=== PATIENT | male | born 1945 | race Caucasian/White ===

== ENCOUNTER 2017-09-06 11:04 | Inpatient (IN) | payer MEDICARE ==
[~2017-09-06 11:04] MED LIST: ARAVA10 MG PO; ARTHROTEC EC 71 EACH PO; AZULFIDINE500 MG PO; BAYER CHEWABLE81 MG PO; CARDIZEM CD120 MG PO; CORDARONE200 MG PO; CYCLOBENZAPRINE10 MG PO; EFFIENT10 MG PO; FISH OIL 1,2001 CA1 PO; FLEXERIL10 MG PO; FOLIC ACID1 MG PO; FUROSEMIDE20 MG PO; GLIPIZIDE10 MG PO; GLUCOPHAGE1000 MG PO; GLUCOPHAGE500 MG PO; HUMALOG 30100 UNITS/ SC; IMDUR60 MG PO; ISOSORBIDE MONO60 M1 PO; LANTUS SOL100 UNIT/1 SQ; LASIX40 MG PO; LEVOTHROID125 MCG PO; LEVOTHYROXINE125 MCG PO; MAG-OX 400 MG400 MG PO; METHOTREXATE2.5 MG PO; NEURONTIN600 MG PO; NITROSTAT0.4 MG SL; NORCO 10/325 TA1 TA1 PO; NORCO 7.5/325 T1 TA1 PO; PREDNISONE5 MG PO; PRINIVIL10 MG PO; PYRIDOXINE HCL100 MG PO; RANEXA500 MG PO; SYNTHROID125 MCG PO; TREXALL15 MG PO; TRICOR145 MG PO; VOLTAREN75 MG PO; [UNRECOGNIZED DRUG - OTHER]
[2017-09-06 11:40] LABS: BASOPHILS 0.2 % (0-2); EOSINOPHILS 1.3 % (0-7); HEMOGLOBIN 12.2 g/dL (13.5-17.5); IMMATURE GRANULOCYTES 0.2 % (0-5); LYMPHOCYTES 18.2 % (15-50); MCH 31.6 pg (26.0-34.0); MCHC 33.9 g/dL (31.0-37.0); MCV 93.3 fL (80.0-100.0); MEAN PLATELET VOLUME 9.1 fL (7.4-10.4); MONOCYTES 6.3 % (2-11); NEUTROPHILS 73.8 % (40-80); PLATELET COUNT 240 10x3/uL (130-400); RBC 3.86 10x6/uL (4.20-6.10); RDW 14.2 % (11.5-14.5); WBC 5.3 10x3/uL (4.8-10.8)
[2017-09-06 11:52] LABS: ALBUMIN 3.5 g/dL (3.4-5.0); ALKALINE PHOSPHATASE 37 U/L (46-116); ALT (SGPT) 28 U/L (10-68); BILIRUBIN - TOTAL 0.17 mg/dL (0.2-1.3); CALC OSMOLALITY 293 mosm/kg (275-300); CALCIUM 9.9 mg/dL (8.5-10.1); CARBON DIOXIDE 26.3 mmol/L (21.0-32.0); CHLORIDE - SERUM 102 mmol/L (98-107); CREATININE - SERUM 1.5 mg/dL (0.6-1.3); GLUCOSE 242 mg/dL (74-106); POTASSIUM - SERUM 4.2 mmol/L (3.5-5.1); PROTEIN - SERUM 7.5 g/dL (6.4-8.2); SODIUM 139 mmol/L (136-145); UREA NITROGEN 36 mg/dL (7-18); eGFR NON AFRICAN AMERICAN 49 mL/min (90-120)
[2017-09-06 12:08] LABS: CKMB 2.6 U/L (0.0-3.6); CREATINE KINASE 150 UL (21-232); PRO BNP 400 pg/mL (0-125)
[2017-09-06 12:12] LABS: TROPONIN-I 0.191 ng/mL (0.000-0.060)
[2017-09-06 13:53] LABS: TROPONIN-I 0.195 ng/mL (0.000-0.060)
[2017-09-06 15:15] VITALS: BP 141/71; BMI 24.6
--- NOTE | 2017-09-06 15:33 | NUR ---
PT AOX4 RESP EVEN AND NONLABORED PT DENIES NEEDS AT THIS TIME IV TO LEFT FOREARM PATENT AND INTACT AT THIS TIME SRX2 BED AT LOWEST SETTING CALL LIGHT WITHIN REACH WILL CONTINUE TO MONITOR
[2017-09-06 19:24] LABS: CKMB 2.1 U/L (0.0-3.6); CREATINE KINASE 113 UL (21-232); TROPONIN-I 0.216 ng/mL (0.000-0.060)
[2017-09-06 20:00] VITALS: BP 132/71
[2017-09-07 01:33] LABS: CKMB 1.6 U/L (0.0-3.6); CREATINE KINASE 93 UL (21-232)
[2017-09-07 01:34] LABS: TROPONIN-I 0.182 ng/mL (0.000-0.060)
[2017-09-07 04:00] VITALS: BP 126/71
--- NOTE | 2017-09-07 07:00 | NUR ---
REPORT RECIEVED ASSUMED CARE. PATIENT IN BED WITH NO COMPLAINTS AT THIS TIME. IV INTACT. CALL LIGHT WITHIN REACH.
[2017-09-07 08:43] VITALS: BP 128/71
--- NOTE | 2017-09-07 11:24 | NUR ---
PATIENT IN BED WITH NO COMPLAINTS. CT X 2 CDI. IV INTACT. O2 ON. FAMILY AT BEDSIDE. CALL LIGHT WITHIN REACH.
--- NOTE | 2017-09-07 11:53 | NUR ---
RIGHT CHEST TUBE PLACED BY DR ROWLAND WITH NO DIFFICULTY. PATIENT TOLERATED PROCEDURE WELL. R CHEST TUBE TO 20 CM OF SUCTION.
[2017-09-07 12:10] VITALS: BP 124/75
[2017-09-07 16:20] VITALS: BP 147/71
--- NOTE | 2017-09-07 16:50 | NUR ---
PATIENT SITTING UP ON THE SIDE OF BED. SAID STILL IN PAIN. OFFERED TO CALL FOR MORE PAIN MEDS. PATIENT STATED HE WOULD BE OK FOR NOW. IV INTACT. NO OCMPLAINTS. CT X 2 INTACT. FAMILY AT BEDSIDE. CALL LIGHT WITHIN REACH.
--- NOTE | 2017-09-07 18:55 | NUR ---
PATIENT IN BED WITH IV INTACT. NO COMPLAINTS AT THIS TIME. CT X 2 CDI. CALL LIGHT WITHIN REACH.
[2017-09-07 19:30] VITALS: BP 145/89
[2017-09-08 04:00] VITALS: BP 143/79
--- NOTE | 2017-09-08 08:10 | NUR ---
AM ROUNDING- RECEIVED REPORT FROM STUDIO OWNER NURSE PARISA. PT IS CURRENLTY SITTING UP IN BED WITH EYES OPEN RESTING. PT IS NPO CURRENTLY FOR CHEST TUBE PLACEMENT TODAY PER DR. ROWLAND. PER PARISA, STUDIO OWNER NURSE, CONSENTS ARE SIGNED AND IN CHART. PT IS ON MONITOR SHOWING SR, HR 81. ON 02 AT 6L VIA OXIMIZER. IV SEEN TO LEFT FOREARM THAT IS CURRENTLY SALINE LOCKED. CHEST TUBE SEEN TO RIGHT UPPER CHEST AREA. SECOND CHEST TUBE SEEN TO MID RIGHT ABDOMINAL AREA HOOKED UP TO WATER SEAL LOW INTERMITTENT SUCTION, NO DRAINAGE SEEN IN CHAMBER AT THIS TIME. WILL CONTINUE TO MONITOR AND CONTINUE WITH PLAN OF CARE.
[2017-09-08 08:48] VITALS: BP 131/71
--- NOTE | 2017-09-08 10:15 | NUR ---
CALLED FOR PT TO BE PRE-OPED. PT GIVEN PRE-OP MEDICATIONS WITH NO SIP OF WATER. NS HUNG AND TUBING PRIMED. EKG IS IN CHART. CONSENTS ARE SIGNED PER FOOD TESTER NURSE.
--- NOTE | 2017-09-08 10:31 | NUR ---
PT TO PROCEDURE VIA BED.
--- NOTE | 2017-09-08 12:14 | NUR ---
CARDIOLOGY CONSULTED. CALL RECIEVED BACK FROM DR [facility] TO VERIFY CONSULT.
--- NOTE | 2017-09-08 12:16 | NUR ---
PT STATES THAT CP IS GONE NOW.
--- NOTE | 2017-09-08 12:28 | NUR ---
RECEIVED REPORT FROM DAVID GUTIERREZ IN OR RECOVERY. MATT STATES SHE WILL BRING PT BACK SOON.
--- NOTE | 2017-09-08 12:52 | NUR ---
PT BACK FROM PROCEDURE. PT IS ALERT AND ORIENTED. RIGHT ANTERIOR CHEST TUBE SEEN WITH CDI HOOKED UP TO [place] CHEST TUBE VALVE WITH NO DRAINAGE SEEN. SECOND CHEST TUBE WITH CDI DRESSING SEEN TO LOWER RIGHT CHEST AREA HOOKED UP TO WATER SEAL CHAMBER AT LOW INTERMITTENT SUCTION WITH 10CC OF BLOODY DRAINAGE SEEN IN CHAMBER. PT STATES HE IS FINE AT THIS TIME. VITAL SIGNS BEING TAKEN. GUEST IS AT BEDSIDE. WILL CONTINUE TO MONITOR.
--- NOTE | 2017-09-08 13:26 | NUR ---
1031 PATIENT LEFT MED/ SURG TO GO TO SURGERY FOR CHEST TUBE INSERTION. 1200 NOON- CM CHECKED PATIENT'S ROOM HE HAD NOT RETURNED AD NO FAMILY AT BEDSIDE TO START ASSESSMENT. CM TO FOLLOW.
[2017-09-08 15:36] VITALS: BMI 24.5
--- NOTE | 2017-09-08 16:54 | NUR ---
PTS BS IS 484. ANDRY, COMMERCIAL PHOTOGRAPHER PAGED DR. ROWLAND TO LET HIM BE AWARE OF THIS. WILL AWAIT CALLBACK.
--- NOTE | 2017-09-08 18:16 | NUR ---
PT IS CURRENTLY SITTING UP ON SIDE OF BED WITH EYES OPEN RESTING. IS AT BEDSIDE. PT IS REQUESTING SPRITE. WILL GIVE PT DIET SPRITE AND CONTINUE TO MONITOR.
--- NOTE | 2017-09-08 20:45 | NUR ---
PATIENT RESTING IN BED AND DENIES NEEDS AT THIS TIME. BED IN LOWEST POSITION AND CALL LIGHT WITHIN REACH. ENCOURAGED THE PATIENT TO CALL IF HE HAS NEEDS.
[2017-09-08 22:08] VITALS: BP 134/67
--- NOTE | 2017-09-08 22:45 | NUR ---
PATIENT REQUESTED TO BE GIVEN 10 UNITS OF INSULIN AND REFUSED 24 UNITS ON THE SLIDING SCALE
[2017-09-09] VITALS (7 sets, daily range): BP systolic 121–157; BP diastolic 70–92
--- NOTE | 2017-09-09 09:03 | NUR ---
PT CALLED STATING HE IS SOB AFTER USING BR. PTS CHEST TUBE IN CONNECTED TO LIS WATER SEAL AT 20CM AND BUBBLING. SLIGHT AIR LEAK NOTED UPON COUGHING. EMPHYSEMA NOTED TO R.ARM SHOULDER CHEST AREA. CRACKLES NOTED TO ALL R.SIDE LOBES, L.SIDE ARE DIMINISHED. VITALS STABLE: 153/78 RR 13 PULSE OX 99% WITH NC@4L IN PLACE. STAT CHEST XRAY ORDERED AND PENDING. NOTIFIED . WILL CTM.
--- NOTE | 2017-09-09 09:14 | NUR ---
PT NOW SWELLING MORE AND ITS NOTED TO THE R.SIDE OF HIS FACE AND HIS THROAT PT HAVING EXTREME SOB. VITALS STILL STABLE. RAPID RESPONSE CALLED. WILL CPOC.
--- NOTE | 2017-09-09 09:48 | NUR ---
AT BEDSIDE ASSESSING PT. NO CURRENT NEEDS. WILL CTM CLOSELY.
--- NOTE | 2017-09-09 10:13 | NUR ---
Patient Name: ANU RAM Admission Status: ER Accout number: [id number] Admission Date: 09-06-2017 : 1943 Admission Diagnosis: Attending: EBONI ROWLAND Current LOS: 3 Anticipated DC Date: Planned Disposition: Primary Insurance: [facility] Discharge Planning Comments: CM MET WITH PATIENT REGARDING D/C NEEDS AND PLANS. PATIENT STATED HE LIVES WITH HIS AND SHE OR FAMILY WILL DRIVE HIM HOME AT DISCHARGE. PATIENT HAS NO STEPS OR STAIRS AT HIS HOME. PATIENT STATED HE IS INDEPENDENT WITH HIS CARE AND HAS A GLUCOMETER AT HOME (CHECKS DAILY). PATIENTS PCP IS DR. BLACKWOOD AND PHARMACY IS [facility]. PATIENT DOES NOT WANT HOME HEALTH AT THIS TIME. CM WILL CONTINUE TO FOLLOW PATIENT WITH D/C NEEDS AND PLANS. PCP DR[facility]- [phone] ETTA- () [phone] Software Security Architect: Suyapa Mckay Is the patient Alert and Oriented? Yes 0 * How many steps to enter\exit or inside your home? 0 0 * PCP DR. BLACKWOOD 0 * Pharmacy [facility] 0 * Preadmission Environment Home with Family 0 * ADLs Independent 0 * Equipment Glucometer 0 * List name and contact numbers for known caregivers / representatives who currently or will assist patient after discharge: ETTA () [phone] * Community resources currently utilized None 0 * Additional services required to return to the preadmission environment? Yes 0 * Can the patient safely return to the preadmission environment? Yes 0 * Has this patient been hospitalized within the prior 30 days at any hospital? No 0 Grand Total: 0
--- NOTE | 2017-09-09 10:40 | NUR ---
PROVIDED PT WITH ALL HIS MORNING MEDICATIONS HE IS STABLE AND FEELING A LITTLE BETTER NOW. RR SLIGHTLY LABORED WITH NC @3L PULSE OX 97% PT STILL SWOLLEN TO R.SIDE OF CHEST AND CRACKLES THROUGHOUT ALL LOBES. NECK IS SLIGHTLY SWOLLEN AND SUBCUT. EMPHYSEMA NOTED AROUND TRACHEA. DOCTOR AWARE AND CONTINUING CURRENT PLAN OF CARE. EKG BEING DONE ORDERED. NO CURRENT NEEDS AT THIS TIME. WILL CPOC.
[2017-09-09 10:55] LABS: BASOPHILS 0.2 % (0-2); EOSINOPHILS 2.1 % (0-7); HEMATOCRIT 36.5 % (42.0-54.0); IMMATURE GRANULOCYTES 0.4 % (0-5); LYMPHOCYTES 20.9 % (15-50); MCHC 32.9 g/dL (31.0-37.0); MCV 94.3 fL (80.0-100.0); MEAN PLATELET VOLUME 9.2 fL (7.4-10.4); MONOCYTES 6.5 % (2-11); NEUTROPHILS 69.9 % (40-80); PLATELET COUNT 276 10x3/uL (130-400); RBC 3.87 10x6/uL (4.20-6.10); WBC 5.3 10x3/uL (4.8-10.8)
[2017-09-09 11:47] LABS: CALC OSMOLALITY 296 mosm/kg (275-300); CALCIUM 8.9 mg/dL (8.5-10.1); CARBON DIOXIDE 28.1 mmol/L (21.0-32.0); CHLORIDE - SERUM 103 mmol/L (98-107); CKMB 0.7 U/L (0.0-3.6); CREATINE KINASE 86 UL (21-232); CREATININE - SERUM 1.3 mg/dL (0.6-1.3); GLUCOSE 264 mg/dL (74-106); POTASSIUM - SERUM 4.5 mmol/L (3.5-5.1); SODIUM 140 mmol/L (136-145); TROPONIN-I < 0.017 ng/mL (0.000-0.060); UREA NITROGEN 39 mg/dL (7-18); eGFR NON AFRICAN AMERICAN 57 mL/min (90-120)
--- NOTE | 2017-09-09 11:55 | NUR ---
FSBS 289. PT REC'D 16 UNITS PER SS INSULIN. PT SITTING UP IN BED RESTING QUIETLY WITH FAMILY FRIEND AT BEDSIDE. PTS SWELLING IS PROGRESSING AND HASNT SEEMED TO GO DOWN AT ALL. CRACKLES NOW HEARD TO L.SIDE OF CHEST AND RICE CRISPIE FELT UPON PALPATION ON BILAT SIDES OF CHEST ANTERIOR, POSTERIOR ONLY TO R.SIDE, FACE/NECK SWOLLEN STILL AND NOT IMPROVING. PT STILL FEELS SOB AND IS IN PAIN UPON DEEP BREATHES BUT REFUSES ANY PAIN MEDICATION. WILL CONTINUE TO MONITER CLOSELY.
--- NOTE | 2017-09-09 16:32 | NUR ---
FSBS 261 PT REC'D 16UNITS PER SS INSULIN. PT IS STILL UNCOMFORTABLE AND SWOLLEN WITH CREPITIS NOTED THROUGHOUT CHEST AND BILAT SHOULDERS AND EVEN FACE. PT C/O NOW HIS EYES SWOLLEN AND THEY ARE AND SWELLING IS INCREASING NOT GOING DOWN AT ALL. PAGED AGAIN. WILL CPOC.
--- NOTE | 2017-09-09 16:53 | NUR ---
AWARE AND DENIES ANY NEEDED FURTHER ACTION, PT HAS HIS CHEST TUBE IN PLACE AND WILL CONTINUE CURRENT THERAPY.
[2017-09-09 17:05] LABS: CKMB 0.8 U/L (0.0-3.6); CREATINE KINASE 87 UL (21-232); TROPONIN-I 0.019 ng/mL (0.000-0.060)
--- NOTE | 2017-09-09 19:39 | NUR ---
PATIENT RESTING IN BED AND DENIES NEEDS AT THIS TIME. PATIENT C/O 4/10 PAIN, HOWEVER, REFUSED PAIN MEDICATION. PATIENT DENIES OTHER NEEDS AT THIS TIME. ASSESSMENT COMPLETE. BED IN LOWEST POSITION AND CALL LIGHT WITHIN REACH. ENCOURAGED THE PT TO CALL IF HE HAS NEEDS.
--- NOTE | 2017-09-09 20:56 | NUR ---
PATIENT REQUESTED MEDS FOR CONSTIPATION
[2017-09-09 22:56] LABS: CKMB 0.6 U/L (0.0-3.6); CREATINE KINASE 71 UL (21-232); TROPONIN-I 0.018 ng/mL (0.000-0.060)
[2017-09-10 04:00] VITALS: BP 150/80
[2017-09-10 07:50] VITALS: BP 130/70
--- NOTE | 2017-09-10 07:50 | NUR ---
PT AOX4 RESP EVEN AND NONLABORED PT DENIES NEEDS AT THIS TIME SRX2 BED AT LOWEST SETTING CALL LIGHT WITHIN REACH WILL CONTINUE TO MONITOR
[2017-09-10 12:23] VITALS: BP 155/82
--- NOTE | 2017-09-10 15:20 | NUR ---
NUTRITION F/U CHART REVIEWED. PT TOLERATING ADA DIET WITH 100% INTAKE RECENT MEALS. WILL CONTINUE TO PROVIDE DIET, MONITOR PO INTAKE. RD FOLLOWING
[2017-09-10 15:42] VITALS: BP 116/77
--- NOTE | 2017-09-10 19:30 | NUR ---
RECIEVED SHIFT REPORT. PT IS LYING IN BED. ALERT AND ORIENTED AND ABLE TO VERBALIZE NEEDS. IV IS PATENT AND SALINE LOC AT THIS TIME. CHEST TUBE IN PLACE AND CONNECTED TO SUCTION. O2 @ 2 PER NASAL CANNULA. PT IS AMBULATORY BUT WAS INSTRUCTED TO CALL FOR ANY ASSISTANCE NEEDED. PT DENIES ANY PAIN AT THIS TIME. NO NEEDS ARE VERBALIZED AT THIS TIME. WILL CONTINUE TO MONITOR. SIDE RAILS ARE UP X 2. BED IS IN LOWEST POSITION. CALL LIGHT IS WITHIN REACH.
[2017-09-10 19:56] VITALS: BP 142/74
--- NOTE | 2017-09-10 20:25 | NUR ---
SHIFT ASSESSMENT COMPLETED. NIGHT MEDS GIVEN WITH NO PROBLEMS. PT RECIEVED 12 UNITS INSULIN PER SLIDING SCALE FOR RWID=[id number]. NO NEEDS ARE VOICED. WILL MONITOR. SIDE RAILS X 2. BED LOW. CALL LIGHT IN REACH
[2017-09-10 23:56] VITALS: BP 135/78
[2017-09-11 04:00] VITALS: BP 136/69
--- NOTE | 2017-09-11 06:18 | NUR ---
PT KIHR=309. PT WANTS TO WAIT TO TAKE ANY MEDICATION UNTIL HE SPEAKS WITH . PT IS UNDER THE IMPRESSION HE IS GOING FOR A PROCEDURE TODAY AND THEREFORE DOES NOT WANT TO EAT OR DRINK ANYTHING AT THIS TIME. SIDE RAILS X 2. BED LOW. CALL LIGHT IN REACH.
--- NOTE | 2017-09-11 07:00 | NUR ---
REPORT RECIEVED FROM OFF GOING NURSE. SEE ASSESSMENT IN FLOW SHEET. BREATHING C/O SOB BUT REFUSES NC. "ITS NOT THAT BAD" HAS A CHEST TUBE TO RIGHT LOWER CHEST CONNECTED TO CONINUTES SUCTIONS. BUBBLING NOTED. PNUOMOCATH NOTED TO RIGHT UPPER CHEST. PERIORBITAL EDEMA NOTED. SUBCUTANEOUS EMPHASIMA NOTED TO UPPER BODY. ALL LOBES ASCULTATED WITH A DEMINISHED RLL. CALL LIGHT IN REACH. WILL COTN POC.
[2017-09-11 08:30] VITALS: BP 149/86
[2017-09-11 12:13] VITALS: BP 175/99
--- NOTE | 2017-09-11 12:45 | NUR ---
WAS NOTIFIED BY HEARING SPECIALIST THAT PT CHEST TUBE SLID OUT. ANOTHER RN IN ROOM WITH PT I WAS PAGING DR NIETO. ONCE PAGED, I ASSESSED PT. PT CHEST TUBE WAS NOT PULLED OUT HOWEVER IT WAS DISCONECTED FROM SUCTION. IT IS NOW BACK ON SUCTION. IT IS RETAPED AND THE WATER CHAMBER IS BUBBLING. NO DRAINAG NOTED. DR NIETO CALLED BACK WITH NO NEW ORDERS. CALL LIGHT IN REACH. WILL CONT POC.
[2017-09-11 15:36] LABS: HEMATOCRIT 36.9 % (42.0-54.0); HEMOGLOBIN 12.3 g/dL (13.5-17.5); MCH 31.1 pg (26.0-34.0); MCHC 33.3 g/dL (31.0-37.0); MCV 93.4 fL (80.0-100.0); MEAN PLATELET VOLUME 9.5 fL (7.4-10.4); RBC 3.95 10x6/uL (4.20-6.10); RDW 13.9 % (11.5-14.5); WBC 6.5 10x3/uL (4.8-10.8)
[2017-09-11 15:48] VITALS: BP 131/70
[2017-09-11 15:48] LABS: APTT 23.6 SECONDS (22.8-39.4)
[2017-09-11 16:02] LABS: ALBUMIN 3.3 g/dL (3.4-5.0); ANION GAP 12.8 mmol/L (8-16); BILIRUBIN - TOTAL 0.19 mg/dL (0.2-1.3); CALCIUM 10.2 mg/dL (8.5-10.1); CARBON DIOXIDE 29.6 mmol/L (21.0-32.0); CREATININE - SERUM 1.2 mg/dL (0.6-1.3); POTASSIUM - SERUM 4.4 mmol/L (3.5-5.1); PROTEIN - SERUM 7.1 g/dL (6.4-8.2)
[2017-09-11 16:12] LABS: INR 0.93 (0.85-1.17); PROTIME 12.3 SECONDS (11.6-15.0)
--- NOTE | 2017-09-11 18:45 | NUR ---
REPORT GIVENG TO ON COMING NURSE. NO CHANGE IN PT'S CONDITION. CONCESENTS SIGNED AND PLACE IN CHART FOR TOMORROW'S PROCEDURE. CALL LIGHT INR EACH. WILL CONT POC.
[2017-09-11 20:00] VITALS: BP 156/71
[2017-09-12] VITALS (40 sets, daily range): BP systolic 105–160; BP diastolic 44–80
--- NOTE | 2017-09-12 06:30 | NUR ---
PT BATHED AND CLIPPED PER PREP ORDERS. MED LIST, BILAT BP'S AND HT/WT ON FRONT OF CHART. FSBS 236 THIS MORNING TREATED WITH S/S HUMALOG. URINE SPECIMEN COLLECTED AND SENT TO LAB. NO OTHER NEEDS. WILL CONTINUE TO MONITOR.
[2017-09-12 07:44] LABS: APPEARANCE CLEAR (CLEAR); BILIRUBIN NEGATIVE (NEGATIVE); COLOR YELLOW (YELLOW); GLUCOSE 1000 mg/dL (NEGATIVE); KETONE NEGATIVE (NEGATIVE); NITRITE NEGATIVE (NEGATIVE); PROTEIN NEGATIVE (NEGATIVE); UROBILINOGEN NORMAL (NORMAL)
--- NOTE | 2017-09-12 15:00 | NUR ---
RECIEVED PT TO ROOM. ATTACHED TO ICU MONITORS. ADMISSION ASSESSMENT COMPLETE PER FLOWSHEET. REFER FOR DETAILS.
--- NOTE | 2017-09-12 17:00 | NUR ---
VSS. NO CHANGES NOTED AT THIS TIME.
--- NOTE | 2017-09-12 19:50 | NUR ---
SHIFT ASSESSMENT COMPLETED. SEE ASSESSMENT FLOWSHEET FOR DETAILS. CREPITUS FELT FROM SHOULDERS TO MID ABDOMEN ABOVE UMBILICUS. REPORTS IT IS GETTING BETTER. RT RADIAL A-LINE INTACT AND IS POSITIONAL. DOPAMINE BEING TITRATED DOWN TO AFFECT FOR B/P MAINTAINENCE. RT LATERAL CHEST TUBE TO 20CM WALL SUCTION, NO AIR LEAK NOTED. SMALL AMT OF SANGUINOUS DRAINAGE NOTED. O2 CANNULA IN MOUTH PER REQUEST DUE TO MOUTH BREATHING. BRUISING NOTED TO LEFT ARM. EPIDURAL CATHETER NOTED AND INTACT WITHOUT LEAKAGE NOTED. REPORTS PAIN "ALL OVER" BUT IS ABLE TO FALL ASLEEP WHEN NOT STIMULATED AND REFUSES TO USE PRN EPIDURAL BOLUS. MOVES ALL EXTREMITIES WELL. DENIES NUMBNESS OT TINGLING. WILL MONITOR.
--- NOTE | 2017-09-12 21:22 | NUR ---
FSBS ASSESSED. SUGAR-233. INSULIN GIVEN PER ORDERED PROTOCOL. TV REMOTE/CALL BUTTON GIVEN TO CHANGE CHANNEL TO WATCH [employer]. JOKING AROUND AND IN GOOD SPIRITS. WILL MONITOR.
--- NOTE | 2017-09-12 23:15 | NUR ---
REASSESSMENT COMPLETED. SEE ASSESSMENT FLOWSHEET. DECREASED O2 TO 3LPM/NC. DECREASED DOPAMINE TO 1.7MCG/KG/MIN. TURNED AND REPOSITIONED TO LEFT SIDE. NOBLE NOW AT BEDSIDE TO DRAW ABG. WILL MONITOR.
[2017-09-13] VITALS (36 sets, daily range): BP systolic 88–159; BP diastolic 47–96
--- NOTE | 2017-09-13 01:00 | NUR ---
TITRATED DOPAMINE DOWN TO 1MCG/KG/MIN. WILL MONITOR.
--- NOTE | 2017-09-13 01:22 | NUR ---
DOPAMINE GTT TURNED OFF. DECREASED PLASMALYTE TO 30ML/HR PER ORDER WHEN CHART CHECK COMPLETED. ICE CHIPS GIVEN PER REQUEST. WILL MONITOR.
--- NOTE | 2017-09-13 03:00 | NUR ---
REASSESSMENT COMPLETED. SEE ASSESSMENT FLOWSHEET. CONVERSATION HELD ABOUT HIS PROPERTY. I & O'S COMPLETED FOR THE HOUR. DOES NOT WANT TO HIT PRN BOLUS FROM EPIDURAL. WILL MONITOR.
--- NOTE | 2017-09-13 04:45 | NUR ---
AM PORTABLE CHEST XRAY COMPLETED. PULLED UP IN BED. DOES NOT WANT TO WEAR A GOWN. WILL MONITOR.
[2017-09-13 05:35] LABS: HEMATOCRIT 32.1 % (42.0-54.0); HEMOGLOBIN 10.9 g/dL (13.5-17.5); MCH 31.1 pg (26.0-34.0); MCV 91.7 fL (80.0-100.0); MEAN PLATELET VOLUME 9.1 fL (7.4-10.4); RBC 3.5 10x6/uL (4.20-6.10); RDW 13.9 % (11.5-14.5)
[2017-09-13 05:55] LABS: ALBUMIN 2.7 g/dL (3.4-5.0); ANION GAP 9.8 mmol/L (8-16); BILIRUBIN - TOTAL 0.15 mg/dL (0.2-1.3); CALCIUM 8.6 mg/dL (8.5-10.1); CARBON DIOXIDE 25.8 mmol/L (21.0-32.0); CREATININE - SERUM 1.2 mg/dL (0.6-1.3); POTASSIUM - SERUM 4.6 mmol/L (3.5-5.1); PROTEIN - SERUM 5.9 g/dL (6.4-8.2)
[2017-09-13 05:59] LABS: WBC 8.5 10x3/uL (4.8-10.8)
--- NOTE | 2017-09-13 09:32 | NUR ---
CALLED INTO ROOM BY PT BECAUSE "SOMETHING WAS POKING ME IN MY BACK" EPIDURAL FOUND OUT IN BED. CATH TIP INTACT. VSS. PAIN 0/[address] OLIVER PAGED.
--- NOTE | 2017-09-13 09:40 | NUR ---
DR. SAMSON NOTIFIED OF EPIDURAL FOUND OUT. CHEST TUBE OUTPUT GIVEN AND PAIN SCORE GIVEN. STATES TO LEAVE EPIDURAL OUT. DR. OLIVER NOTIFIED. NEW ORDERS RECIEVED.
--- NOTE | 2017-09-13 11:00 | NUR ---
ANESTHESIA AT BEDSIDE. EPIDURAL ORDER DC'D. DR. OLIVER REMOVED EPIDURAL BOX FROM ROOM.
--- NOTE | 2017-09-13 15:20 | NUR ---
SET UP FOR BATH. LINENS CHANGED.
--- NOTE | 2017-09-13 19:40 | NUR ---
RT LATERAL CHEST TUBE DRSG SATURATED W/ SEROSANGUINOUS DRAINAGE. DRSG CHANGED PER PROTOCOL.
--- NOTE | 2017-09-13 20:45 | NUR ---
AMBULATED FROM BEDSIDE CHAIR TO BED. REPORTS NOT FEELING WELL. WILL RUN LABS BUT POSSIBLY DUE FROM ELEVATED BLOOD SUGAR. STAT LABS DRAWN FROM RT SC CVL ONCE LAYING BACK INTO BED. WILL MONITOR.
[2017-09-13 21:12] LABS: ANION GAP 10.3 mmol/L (8-16); CARBON DIOXIDE 28.1 mmol/L (21.0-32.0); POTASSIUM - SERUM 4.4 mmol/L (3.5-5.1)
[2017-09-13 21:15] LABS: CREATININE - SERUM 1.6 mg/dL (0.6-1.3)
--- NOTE | 2017-09-13 21:23 | NUR ---
DR. SAMSON MADE AWARE OF STAT GLUCOSE BLOOD SUGAR AND ALREADY GIVEN INSULIN. NO NEW ORDERS AT THIS TIME.
--- NOTE | 2017-09-13 22:50 | NUR ---
MOUTH BREATHING NOTED. REASSESSMENT COMPLETED. SEE ASSESSMENT FLOWSHEET. NO NEW ACUTE CHANGES NOTED. INCREASED O2 TO 3LPM/NC DUE TO MOUTH BREATHING AND PERIODS OF DECREASED O2 SATS IN THE 80'S. WILL MONITOR.
[2017-09-14] VITALS (24 sets, daily range): BP systolic 108–163; BP diastolic 52–82
--- NOTE | 2017-09-14 00:05 | NUR ---
AWOKE WANTING TO BE REMOVED FROM SCD'S TO GET OUT OF BED. WHEN ASKED WHERE HE NEEDED TO GO, REPORTS "TO GET UP THIS MORNING AND START MOVING". REORIENTEF TO MIDNIGHT. STATES "OH, I'LL GO BACK TO SLEEP". ENCOURAGED TO KEEP O2 SENSOR ON FINGERS. WILL MONITOR.
--- NOTE | 2017-09-14 02:00 | NUR ---
EYES CLOSED. MOUTH OPEN. NO ACUTE DISTRESS NOTED. WILL MONITOR.
--- NOTE | 2017-09-14 03:40 | NUR ---
SITTING UP ON SIDE OF BED. SHAVING FACE W/ ELECTRIC RAZOR. SNEEZED. DENIES NEEDS AND ENCOURAGED NOT TO MOVE PAST SITTING UP IN BED DANGLING LIKE HE IS DUE TO CHEST TUBE ON OPPOSITE SIDE OF THE BED. VERBALIZED UNDERSTANDING.
--- NOTE | 2017-09-14 04:45 | NUR ---
TAKEN OVER TO XRAY DEPT FOR PA & LAT. TOELRATED WELL AND NEEDED MINIMAL ASSISTANCE FOR TRANSFERS. WANTED BACK TO BED. PLACED BACK TO BED AND CHEST TUBE PLACED TO SUCTION. WILL MONITOR.
[2017-09-14 06:19] LABS: HEMATOCRIT 30.4 % (42.0-54.0); HEMOGLOBIN 10.2 g/dL (13.5-17.5); MCH 31.3 pg (26.0-34.0); MCHC 33.6 g/dL (31.0-37.0); MCV 93.3 fL (80.0-100.0); MEAN PLATELET VOLUME 8.9 fL (7.4-10.4); RBC 3.26 10x6/uL (4.20-6.10); RDW 14.2 % (11.5-14.5); WBC 8.2 10x3/uL (4.8-10.8)
--- NOTE | 2017-09-14 06:21 | NUR ---
AM LABS DRAWN FROM RT SC CVL WITHOUT DIFFICULTY. PO SYNTHROID GIVEN. URINATED INTO URINAL. WILL MONITOR.
[2017-09-14 06:34] LABS: ALBUMIN 2.7 g/dL (3.4-5.0); ANION GAP 9.6 mmol/L (8-16); BILIRUBIN - TOTAL 0.21 mg/dL (0.2-1.3); CALCIUM 8.9 mg/dL (8.5-10.1); CARBON DIOXIDE 30.8 mmol/L (21.0-32.0); CREATININE - SERUM 1.2 mg/dL (0.6-1.3); POTASSIUM - SERUM 4.4 mmol/L (3.5-5.1); PROTEIN - SERUM 6.1 g/dL (6.4-8.2)
--- NOTE | 2017-09-14 08:56 | NUR ---
ASSISTED UP TO CHAIR FOR BREAKFAST. C/O PAIN BUT REFUSES PAIN MEDICATION. STATES "I DONT TAKE PAIN PILLS".
--- NOTE | 2017-09-14 13:37 | OP ---
PATIENT NAME: ANU RAM MEDICAL RECORD: [id number] :43 LOCATION:[facility].[id number] ADMISSION DATE:09/06/17 SURGEON: MARK LUKE MD DATE OF OPERATION: 09/12/2017 SURGEON: Mark Luke MD ANESTHESIA: General endotracheal, Dr. Walker. OPERATIONS PERFORMED: 1. Video-assisted thoracoscopy. 2. Resection of blebs, right apex. 3. Placement of a double lumen tube and flexible fiberoptic bronchoscopy. 4. Pleurodesis. PREOPERATIVE DIAGNOSIS: Persistent pneumothorax and air leak. POSTOPERATIVE DIAGNOSIS: Blebs right apex with continued air leak. INDICATION FOR OPERATION: Persistent air leak. FINDINGS AT OPERATION: Air leak, blebs right apex. ESTIMATED BLOOD LOSS: Less than 50 mL. SPECIMENS: Preston, right upper lobe. DESCRIPTION OF PROCEDURE: After informed consent, adequate preoperative medication and evaluation, the patient was brought to the operating room, placed on the table in the supine position. After induction of general endotracheal anesthesia and application of appropriate monitoring devices, the patient underwent placement of a double-lumen tube and flexible fiberoptic bronchoscopy. The patient was then turned in a left lateral decubitus position. The right chest prepped and draped in a sterile field utilizing Betadine scrub, alcohol, and Betadine solution. A Betadine-impregnated drape was also used. A port was placed in the ninth interspace mid axillary line and the scope placed and the lung examined. There were blebs and adhesions in the upper lobe area. Anterior and posterior ports were placed under direct vision. The lungs were examined. The adhesions from the apex to the chest wall were lysed. The blebs were then resected and the chest further examined. No other blebs were noted. The patient then underwent a talc pleurodesis. The chest was examined with a good result. A #32 chest tube was run in through the camera port, placed in the apex, connected to underwater seal and suction. The instrument count and sponge count were correct times 2. The remainder of the wounds were closed in layers utilizing 2-0 Vicryl and 5-0 subcuticular Monocryl. Sterile dressings were applied. The patient returned to supine position and extubated. The patient tolerated the procedure well and was transferred to the ICU in satisfactory condition. TRANSINT:[id number] Voice Confirmation ID: [id number] DOCUMENT ID: [id number] OPERATIVE REPORT [id number] ANU RAM EDWARD MD at 1337 CC: [id number] DICTATION DATE: 09/12/17 1521 SYSTEMS SECURITY CONSULTANT: 09/12/17 1641 ADM IN [facility] [address] [place] [address]
--- NOTE | 2017-09-14 19:10 | NUR ---
Received patient sitting up in chair with eyes open watching TV. Patient AO x4, calm and cooperative. Eyes PERRLA @ 4mm with Brisk response, sclera is white/clear. Patient hard of hearing and wears glasses to see. S1/S2 noted NSR on telemetry with HR 80, rythmic and regular. Breathing is shallow and unlabored on room air with O2 sat 96%, fine crackles noted bilateral upper and mid with diminished lower. Sub cutaneous emphysema noted upper chest, small crackles noted on palpation. R Lateral CT x1 with small serosanguinous drainage noted and connectected to 20cm suction, dressing CDI with no swelling or bleeding/drainage noted. Abdomen is soft and flat with bowel sounds active x4, non-tender. Patient utilizes urinal jug without assistance, 275ml concentrated yellow urine noted. Full ROM all extremities with upper pulses palpable and lower pulses weak, cap refill < 3 sec with skin warm/dry. Patient gait unsteady, ambulates with standby assist. R subclavian CVL dressing CDI, patent and saline locked. Patient denies pain or other needs at this time, all VSS and will continue to monitor.
--- NOTE | 2017-09-14 21:00 | NUR ---
Patient assisted back to bed, slight unsteady gait. HS meds given without difficulty, no visitors at this time. R CT dressing CDI, no bleeding/drainage from site. Patient denies pain or other needs at this time, all VSS and will continue to monitor.
--- NOTE | 2017-09-14 23:05 | NUR ---
Reassessment completed per flowsheet, patient resting in bed with eyes closed. Patient AO x4, calm and cooperative. S1/S2 noted NSR on telemetry with HR 89, rhythmic and regular. Breathing is shallow and unlabored on room air with O2 sat 96%, fine crackles noted bilateral upper and mid with diminished lower. R CT dressing CDI with small serosanguinous fluid, CT to 20cm suction. Full ROM all extremities with upper pulses palpable and lower pulses weak, cap refill < 3 sec with skin warm/dry to touch. Patient denies pain or other needs at this time, all VSS and will continue to monitor.
[2017-09-15] VITALS (23 sets, daily range): BP systolic 92–139; BP diastolic 56–68
--- NOTE | 2017-09-15 03:05 | NUR ---
Reassessment completed per flowsheet, patient sitting up on bedside at request. Patient AO x4, calm and cooperative. S1/S2 noted NSR on telemetry with HR 99, rythmic and regular. Breathing is shallow and unlabored on room air with O2 sat 96%, fine crackles noted bilateral upper and mid with diminished lower. Subcutaneous emphysema noted upper chest and shoulders, crackles on palpation. CT x1 to 20 cm suction with scant serosanguinous drainage noted, dressing CDI. Patient utilized urinal jug without assistance, 275ml concentrated yellow urine. Patient denies pain or other needs at this time, all VSS and will continue to monitor.
--- NOTE | 2017-09-15 05:35 | NUR ---
Patient of floor to radiology, linen change performed. Patient returned to unit and positioned in chair at bedside. No complaints or other needs at this time, all VSS and will continue to monitor.
[2017-09-15 06:19] LABS: HEMATOCRIT 30.8 % (42.0-54.0); MCH 30.8 pg (26.0-34.0); MCHC 32.5 g/dL (31.0-37.0); MCV 94.8 fL (80.0-100.0); MEAN PLATELET VOLUME 9.2 fL (7.4-10.4); RBC 3.25 10x6/uL (4.20-6.10); RDW 14.4 % (11.5-14.5); WBC 6.6 10x3/uL (4.8-10.8)
[2017-09-15 06:42] LABS: ALBUMIN 2.5 g/dL (3.4-5.0); ANION GAP 12.4 mmol/L (8-16); BILIRUBIN - TOTAL 0.14 mg/dL (0.2-1.3); CALCIUM 8.9 mg/dL (8.5-10.1); CARBON DIOXIDE 28.2 mmol/L (21.0-32.0); CREATININE - SERUM 1.3 mg/dL (0.6-1.3); POTASSIUM - SERUM 4.6 mmol/L (3.5-5.1); PROTEIN - SERUM 6.1 g/dL (6.4-8.2)
--- NOTE | 2017-09-15 07:59 | NUR ---
DR. SAMSON HERE IN TO SEE PATIENT. ORDER RECEIVED TO CLAMP CHEST TUBE AT THIS TIME. CHEST TUBE IS CLAMPED.
--- NOTE | 2017-09-15 09:00 | NUR ---
PATIENT IS WALKING IN HALLWAY WITH PHYSICAL THERAPY TOLERATING WELL AT THIS TIME.
--- NOTE | 2017-09-15 11:11 | NUR ---
Nutrition Follow Up: Pt was asleep at the time of RD visit. Interview deferred. Pt is eating 100% meal avg on a diabetic diet. Wt stable. +BM 09/10/17. Labs reviewed - Glucose continues elevated. Meds noted including Prednisone, Lasix. Rec continue current diet. RD following.
[2017-09-15 11:22] LABS: CHOL - HDL RATIO 3.7 ratio (2.3-4.9); LDL-HDL RATIO 2.3 ratio (1.5-3.5)
--- NOTE | 2017-09-15 12:11 | NUR ---
DR. SAMSON IN ROOM TO CHECK PATIENT'S CHEST TUBE. WILL CONTINUE TO MONITOR.
--- NOTE | 2017-09-15 14:23 | NUR ---
PATIENT CARE AND REPORT TURNED OVER TO DAVID SANCHEZ.
--- NOTE | 2017-09-15 14:56 | NUR ---
CARE ASSUMED OF PT. ASSESSMENT COMPLETE PER FLOWSHEET. RESTING IN RECLINER. VSS. CALL LIGHT IN REACH. WILL MONITOR FOR CHANGES.
--- NOTE | 2017-09-15 16:00 | NUR ---
DR. SAMSON AT BEDSIDE. CT REMOVED. NO ISSUES NOTED POST REMOVAL.
--- NOTE | 2017-09-15 17:00 | NUR ---
DEE DEE GUTIERREZ CALLED IN REGARDS TO ELEVATED BS. AWAITING CALL BACK.
--- NOTE | 2017-09-15 17:30 | NUR ---
SPOKE TO MATT, STATED TO FOLLOW S/S.
--- NOTE | 2017-09-15 19:10 | NUR ---
Received patient resting in bed with eyes open watching TV, assessment completed per flowsheet. Patient AO x4, calm and cooperative. Eyes PERRLA @ 4mm with brisk response, sclera is white/clear. Patient wears glassess and states he is hard of hearing. S1/S2 noted NSR on telemetry with HR 91, rythmic and regular. Breathing is slightly shallow on room air with O2 95%, fine crackles noted R upper/mid/lower with clear CORBY and slightly diminished lower. R lateral chest old CT site, incision well approximated with no swelling/drainage noted. Abdomen is soft and flat with bowel sounds active x4, non-tender. Patient uses urinal jug without assistance, 225ml clear yellow urine collected. Full ROM all extemities with all pulses palpable, cap refill < 3 sec. R subclavian CVL dressing CDI, patent and saline locked. Patient c/o pain R shoulder 4/10, will provide PRN at HS per patient request. No further needs at this time, all VSS and will continue to monitor.
--- NOTE | 2017-09-15 21:00 | NUR ---
Patient laying in bed with eyes open watching TV, all HS meds given without difficulty. Discussed Dicharge planning, patient stated he will need time to find a ride home prior to discharge. Will notify oncoming RN of need. C/O R shoulder/upper chest pain, PRN Toradol given and will reassess.
--- NOTE | 2017-09-15 23:00 | NUR ---
Reassessment completed per flowsheet, patient resting in bed with eyes closed. Patient AO x4, calm and cooperative. S1/S2 noted NSR on telemetry with HR 87, rhythmic and regular. Breathing is slightly shallow and unlabored on room air with O2 sat 94%, fine crackles noted RUL/RML with diminished lower and clear CORBY with diminished lower. R lateral old CT x1 site well approximated, no swelling/drainage noted. All pulses palpable with cap refill < 3 sec, skin warm/dry to touch. Patient denies pain or other needs at this time, all VSS and will continue to monitor.
[2017-09-16] VITALS (10 sets, daily range): BP systolic 107–155; BP diastolic 56–81
--- NOTE | 2017-09-16 01:00 | NUR ---
Patient utilized urinal jug without assistance, 300ml clear yellow urine noted. Patient repositioned and provided water at request, denies pain or other needs at this time. All VSS and will continue to monitor.
--- NOTE | 2017-09-16 03:00 | NUR ---
Reassessment completed per flowsheet, patient resting in bed with eyes closed. Patient AO x4, calm and cooperative. S1/S2 noted NSR on telemetry with HR 95, rythmic and regular. Breathing is shallow and unlabored on room air with O2 sat 94%, fine crackles noted RUL/RML and RLL diminished with CORBY/LLL clear. R lateral chest old CT x1 incision weel approximated, with no swelling/drainage noted. All pulses palpable with cap refill < 3 sec, skin warm/dry. Patient utilized urinal jug, 125ml clear yellow urine noted. Denies pain or other needs at this time, all VSS and will continue to monitor.
--- NOTE | 2017-09-16 05:00 | NUR ---
Patient returned from radiology and assisted to chair at bedside. Patient states R shoulder "feels better" and that he's "ready to go home today". Patient denies other needs at this time, all VSS and will continue to monitor.
--- NOTE | 2017-09-16 06:40 | NUR ---
FSBS glucometer reading HI, STAT lab ordered and awaiting results. Will treat per protocol when resulted.
[2017-09-16] MEDS ORDERED: IBUPROFEN400 MG PO (08:44)
--- NOTE | 2017-09-16 09:30 | OP ---
PATIENT NAME: ANU RAM MEDICAL RECORD: [id number] :41 LOCATION:[facility] ADMISSION DATE:09/06/17 SURGEON: JARRED ROWLAND MD DATE OF OPERATION: 09/08/2017 PREOPERATIVE DIAGNOSES: 1. Right pneumothorax. 2. Coronary artery disease. POSTOPERATIVE DIAGNOSES: 1. Right pneumothorax. 2. Coronary artery disease. PROCEDURE IN DETAIL: A 12-Serbian right chest tube placement. SURGEON: Jarred Rowland MD REPORT OF PROCEDURE: The patient's right chest was prepped and draped in sterile fashion. The patient had an indwelling 12-Serbian right chest tube that appeared to be just in the subcutaneous tissues. I went ahead and removed this chest tube, I then infused a total of 10 mL of 0.25% Marcaine with epinephrine into the surrounding tissues. A long Sylvie was then inserted into the chest. We penetrated through the ribs just above the 7th rib space. The 12-Serbian chest tube was then repositioned through this rib space and it easily advanced up into the chest. At this point, we noticed fluctuation in the Thora-Seal device with respirations. We then sutured this into place with 2-0 nylon and dressed it appropriately. COMPLICATIONS: None. CONDITION: Stable. ANESTHESIA: TIVA and local. BLOOD LOSS: Minimal. TRANSINT:[id number] Voice Confirmation ID: [id number] DOCUMENT ID: [id number] JARRED ROWLAND MD at 0930 CC: [id number] DICTATION DATE: 09/08/17 1146 DONATION WORKER: 09/08/17 1237 ADM IN [id number] [place] [address]
--- NOTE | 2017-09-16 10:59 | NUR ---
DR BLACKWOOD OFFICE CALLED FOR F/U APPT. SCHEDULED FOR 09/25/17 AT 10:30AM
--- NOTE | 2017-09-16 11:35 | NUR ---
Glucose checked, insulin provided per order. Lunch tray provided to patient. Denies any other needs.
--- NOTE | 2017-09-16 11:41 | NUR ---
Patient Name: ANU RAM Encounter No: [id number] : 1945 Primary Insurance: [facility] [employer] [facility] [employer] Anticipated DC Date: 09-15-2017 Planned Disposition: Home DCP follow-up note: DC order rec'd. Patient declines home health services at this time. Daughter will drive him home today. Case management will follow and assist as needed. Moni Escamilla
--- NOTE | 2017-09-16 14:07 | NUR ---
Dr Luke office called for follow up appointments. Pt needs to come to office this Friday (09/19) at 10am for suture removal. F/U is October 02 at 10:30am and pt needs to come to [facility] registration at 9:30am to have chest xray.
== END 2017-09-16 14:32 | disposition home or self-care (01) | DRG 165 ==
LOC: D.ER 11:04 → D.MS 13:10 → D.CVICU 13:10 → D.SDCHOLD 09-12 18:21 → D.CVICU 09-12 18:23
PROVIDERS: Family Medicine; Internal Medicine Cardiovascular Disease; ADMIT Surgery
PROC: 0W9930Z Drainage of Right Pleural Cavity with Drainage Device, Percutaneous Approach (ICD-10-PCS; principal; 2017-09-08 09:00)
PROC: 0BBK4ZZ Excision of Right Lung, Percutaneous Endoscopic Approach (ICD-10-PCS; 2017-09-12)
PROC: 3E0L4GC Introduction of Other Therapeutic Substance into Pleural Cavity, Percutaneous Endoscopic Approach (ICD-10-PCS; 2017-09-12)
DX: J93.0 Spontaneous tension pneumothorax (principal); I25.10 Atherosclerotic heart disease of native coronary artery without angina pectoris; Z95.5 Presence of coronary angioplasty implant and graft; Z79.4 Long term (current) use of insulin; I10 Essential (primary) hypertension; E78.5 Hyperlipidemia, unspecified; R07.89 Other chest pain; J43.9 Emphysema, unspecified; E11.49 Type 2 diabetes mellitus with other diabetic neurological complication; J95.812 Postprocedural air leak; Y83.8 Other surgical procedures as the cause of abnormal reaction of the patient, or of later complication, without mention of misadventure at the time of the procedure; Y82.8 Other medical devices associated with adverse incidents

== ENCOUNTER → 2017-10-02 08:51 | Outpatient (CLI) | payer MEDICARE ==
[~2017-10-02 08:51] MED LIST changes: +IBUPROFEN400 MG PO; +LAMISIL250 MG PO
== END | disposition home or self-care (01) ==
LOC: D.RAD 08:15
DX: J91.8 Pleural effusion in other conditions classified elsewhere (principal)

== ENCOUNTER → 2017-10-17 12:17 | Outpatient (CLI) | payer MEDICARE | END | disposition home or self-care (01) | LOC: D.LAB 08:30 → D.RAD 08:30 | DX: J90 Pleural effusion, not elsewhere classified (principal); J93.9 Pneumothorax, unspecified ==

== ENCOUNTER → 2017-11-20 11:50 | Outpatient (CLI) | payer MEDICARE, BC ==
[~2017-11-20 11:50] MED LIST changes: +ISOSORBIDE MON120 M1 PO
== END | disposition home or self-care (01) ==
LOC: D.RAD 11:50
DX: J91.8 Pleural effusion in other conditions classified elsewhere (principal); Z98.890 Other specified postprocedural states

== ENCOUNTER 2017-12-28 17:14 | Inpatient (IN) | payer MEDICARE, BC ==
[~2017-12-28] VITALS: Ht 180.3 cm; Wt 83.7 kg
--- NOTE | ~2017-12-28 | DS ---
PATIENT:ANU RAM :41 MEDICAL RECORD: [id number] DISCHARGE SUMMARY ADMISSION DATE: 12/29/17 DISCHARGE DATE: DISCHARGE DIAGNOSES: 1. Angina. 2. Coronary artery disease. 3. Percutaneous transluminal coronary angioplasty RCA this admission. HOSPITAL COURSE: Mrs. Ram presents with unstable anginal symptomatology, found to have critical disease to the RCA, underwent PTCA, had no further increase in his Imdur of 120 mg b.i.d. He had no further anginal symptomatology. He was discharged home with addition of Effient times 1 month to his medical regimen. We will follow up with [facility] in 1 month. TRANSINT:[id number] Voice Confirmation ID: [id number] DOCUMENT ID: [id number] PADMINI HUGHES MD CC: [id number] DICTATION DATE: 12/30/17 1048 REGISTERED PRIVATE DUTY NURSE: 12/30/17 1240 ADM IN [id number] [place] [address]
--- NOTE | ~2017-12-28 | HEMODYNAMI ---
PATIENT:ANU RAM MEDICAL RECORD: [id number] : 41 [id number] ADMISSION DATE: 12/28/17 Generatedon:12/29/201714:19 Patient name: ANU RAM Patient #: [id number] SSN: : 1945 Date of study: 12/29/2017 Page: Of Hemodynamic Procedure Report Patient Data Patient Demographics Procedure consent was obtained First Name: ANU Gender: Male Last Name: LEANNA : 1945 [facility] Initial: CINDY Age: 72 year(s) Patient #: [id number] Race: Unknown Additional ID: [id number] Contact details [address]: [address] [place] [address] State: [place] City: [place] Zip code: [address] Past Medical History Allergies Allergen Reaction Date Comments Reported Other 12/29/2015 LIPITOR,PRAVACHOL,STATINS,PLAVIX allergy Other 12/29/2017 plavix, red yeast rice allergy Statins 12/29/2017 Admission Admission Data Admission Date: 12/28/2017 Admission Time: 19:53 Room #: D.2125 Procedure Procedure Types Cath Procedure Diagnostic Procedure LHC LHC w/Coronaries w/Grafts PCI Procedure PTCA PTCA Initial Miscellaneous Procedures Moderate Sedation up to 45 minutes Procedure Description Procedure Date Procedure Date: 12/29/2017 Procedure Start Time: 13:00 Procedure End Time: 14:19 Procedure Staff Name Function Juanjo Aguirre MD Performing Physician Sherlyn Tenorio RT Monitor Patito Quijano RT Scrub Krystian Herrera RN Nurse Procedure Data Cath Procedure Fluoroscopy Diagnostic fluoroscopy Total fluoroscopy Time: 31 time: 31 min min Diagnostic fluoroscopy Total fluoroscopy dose: dose: 2204 mGy 2204 mGy Contrast Material Contrast Material Type Amount (ml) Isovue 300 180 Entry Location Entry Primary Successful Side Size Upsize Upsize Entry Closure Succes sful Closure Location (Fr) 1 (Fr) 2 (Fr) Remarks Device Remarks Femoral Right 5 Fr 6 Fr 7 Fr Exoseal artery Short Long Estimated blood loss: 10 ml Diagnostic catheters Device Type Used For End Catheter Placement MULTIPACK Pigtail 5 Fr LV Angiography catheter MULTIPACK 3DRC 5Fr Internal mammary catheter arteriography MULTIPACK 3DRC 5Fr Right Coronary catheter Angiography DIAGNOSTIC AR 2 MOD 5 Fr SVG Angiography catheter ([id number]) Procedure Complications No complications Procedure Medications Medication Administration Route Dosage 0.9% NaCl I.V. 100 ml/hr Oxygen NC 2 l/min Heparin Flush Bag added to field 2 bags (1000units/500ml NS) Lidocaine 2% added to field 20 Versed I.V. 1 mg Fentanyl I.V. 50 mcg Versed I.V. 1 mg Fentanyl I.V. 50 mcg Heparin Bolus I.V. 4000 units Heparin Bolus I.V. 3000 units Versed I.V. 1 mg Nitroglycerin IC/IA I.A. 200 mcg Heparin Bolus I.V. 3000 units Hemodynamics Rest Heart Rate: 77 (bpm) Snapshots Pre Cath Intra NCS Post Cath Vital Signs Time Heart Resp SPO2 etCO2 NIBP (mmHg) Rhythm Pain Sedation Rate (ipm) (%) (mmHg) Status Level (bpm) 12:44:41 75 16 97 8.3 135/84(115) NSR 0 (11) 10(A) , No pain 12:49:17 77 19 93 0 137/81(122) NSR 0 (11) 10(A) , No pain 12:53:58 76 20 93 0 133/79(111) NSR 0 (11) 10(A) , No pain 12:58:37 76 19 95 0 130/78(100) NSR 0 (11) 10(A) , No pain 13:03:13 75 22 94 0 134/87(117) NSR 0 (11) 10(A) , No pain 13:07:54 76 17 93 0 126/71(100) NSR 0 (11) 9(A) , No pain 13:12:32 75 18 94 0 130/66(108) NSR 0 (11) 9(A) , No pain 13:17:11 78 17 94 10.6 133/79(103) NSR 0 (11) 9(A) , No pain 13:21:49 77 19 95 14.4 127/77(99) NSR 0 (11) 9(A) , No pain 13:26:28 76 17 94 24.3 131/78(98) NSR 0 (11) 9(A) , No pain 13:31:09 74 19 95 8.3 135/76(113) NSR 0 (11) 9(A) , No pain 13:35:49 76 19 95 25.1 131/76(107) NSR 0 (11) 9(A) , No pain 13:40:28 75 17 95 23.5 140/80(112) NSR 0 (11) 9(A) , No pain 13:45:06 78 19 98 15.2 132/88(113) NSR 0 (11) 10(A) , No pain 13:50:22 77 20 94 0 150/82(111) NSR 0 (11) 10(A) , No pain 13:55:02 77 19 96 31.9 138/77(108) NSR 0 (11) 10(A) , No pain 13:59:41 83 20 96 31.1 150/92(125) NSR 0 (11) 10(A) , No pain 14:04:21 81 20 96 12.1 146/86(108) NSR 0 (11) 10(A) , No pain 14:09:04 81 25 97 14.4 134/79(103) NSR 0 (11) 10(A) , No pain 14:13:43 79 28 94 21.2 140/86(115) NSR 0 (11) 10(A) , No pain 14:18:42 80 24 97 0 Measuring NSR 0 (11) 10(A) , No pain 14:18:50 82 22 98 29.6 148/83(120) NSR 0 (11) 10(A) , No pain Medications Time Medication Route Dose Verified Delivered Reason Notes Effectiveness by by 12:44:49 0.9% NaCl I.V. 100 Krystian Krystian Per physician ml/hr Javier Herrera RN RN 12:44:59 Oxygen NC 2 Krystian Krystian Per physician l/min Javier Herrera RN RN 12:46:06 Heparin Flush added 2 Krystian Krystian used for Bag to bags Javier Herrera procedure (1000units/500ml field HERNANDEZ RN NS) 12:46:19 Lidocaine 2% added 20ml Krystian Krystian for local to vial Lorigan Lorigan anesthetic field RN RN 12:55:57 Versed I.V. 1 mg Krystian Krystian for sedation Javier Herrera RN RN 12:56:07 Fentanyl I.V. 50 Krystian Krystian for sedation mcg Javier Herrera RN RN 13:01:16 Versed I.V. 1 mg Krystian Krystian for sedation Javier Herrera RN RN 13:01:23 Fentanyl I.V. 50 Krystian Krystian for sedation mcg Javier Herrera RN RN 13:16:05 Heparin Bolus I.V. 4000 Krystian Krystian for units Javier Herrera anticoagulation RN RN 13:40:28 Heparin Bolus I.V. 3000 Krystian Krystian for units Javier Herrera anticoagulation RN RN 13:49:16 Versed I.V. 1 mg Krystian Krystian for sedation Javier Herrera RN RN 13:59:59 Nitroglycerin I.A. 200 Krystian Juanjo for IC/IA mcg Javier Aguirre MD vasodilation RN 14:08:23 Heparin Bolus I.V. 3000 Krystian Juanjo for units Javier Aguirre MD anticoagulation attending urologist Log Time Note 12:23:14 Sherlyn Counts RT(R) sent for patient. Start room use. 12:23:15 Time tracking: Regular hours 12:23:19 Plan of Care:Hemodynamics will remain stable., Cardiac rhythm will remain stable., Comfort level will be maintained., Respiratory function will remain adequate., Patient/ family verbilizes understanding of procedure., Procedure tolerated without complication., Recovers from procedure without complications.. 12:33:22 Patient received from Med II to [facility] 1 Alert and oriented. Tansferred to table in Supine position. 12:33:23 Warm blankets applied, and brad hugger turned on for patient comfort. 12:33:23 Correct patient and procedure confirmed by team. 12:33:25 Signed procedure consent form obtained from patient. 12:33:26 ECG and BP/O2 sat monitors applied to patient. 12:43:49 Vital chart was started 12:43:52 Rhythm: sinus rhythm 12:43:53 Full Disclosure recording started 12:44:06 H&P Date Dictated: 12/28/2017 Within 30 days and on chart.. 12:44:07 Pre-procedure instructions explained to patient. 12:44:08 Pre-op teaching completed and patient verbalized understanding. 12:44:10 Family in waiting room. 12:44:12 Patient NPO since Midnight. 12:44:37 Patient allergic to Other allergyplavix, red yeast rice 12:44:41 Patient allergic to Statins 12:44:45 Is the patient allergic to Iodine/contrast media? No. 12:44:48 Is patient on blood thinner?No 12:44:49 0.9% NaCl 100 ml/hr I.V. was administered by Krystian Herrera RN; Per physician; 12:44:59 Oxygen 2 l/min NC was administered by Krystian Herrera RN; Per physician; 12:46:06 Heparin Flush Bag (1000units/500ml NS) 2 bags added to field was administered by Krystian Herrera RN; used for procedure; 12:46:19 Lidocaine 2% 20ml vial added to field was administered by Krystian Herrera RN; for local anesthetic; 12:46:39 Patient diabetic? Yes. 12:46:40 If diabetic: On Metformin? Yes 12:46:42 If on Metformin: Last Dose? 12/28/2017 12:46:46 Previous problem with sedation/anesthesia? No ? 12:46:46 Snore? Yes 12:46:47 Sleep apnea? No 12:46:48 Deviated septum? No 12:46:49 Opens mouth fully? Yes 12:46:50 Sticks out tongue? Yes 12:46:52 Airway obstruction? No ? 12:46:54 Dentures? No ? 12:46:59 Pre procedure: right dorsailis pedis pulse 2+ Normal; easily identifiable; not easily obliterated 12:47:02 Patient pain scale 0/10 ?. 12:47:08 IV patent on arrival in left forearm with 0.9% NaCl at [facility]. 12:47:14 Lab results completed and on chart. 12:47:17 Right groin area was prepped with chlora-prep and draped in sterile fashion 12:47:18 Alarms reviewed by R. N. 12:47:18 Sharps counted by scrub and verified by R.N. 12:47:21 Use device set Femoral Dx 12:47:21 ACIST Syringe (94253) opened to sterile field. 12:47:22 Bag Decanter (2002) opened to sterile field. 12:47:22 Medline Cath Pack ([id number]) opened to sterile field. 12:47:23 SHEATH 5FR [place] (FGT605) opened to sterile field. 12:47:23 DIAGNOSTIC WIRE .035 260cm J wire (673727) opened to sterile field. 12:47:24 ACIST Hand Control (44842) opened to sterile field. 12:47:25 ACIST Manifold (45703) opened to sterile field. 12:47:25 DIAGNOSTIC Multipack 5Fr catheter set ([id number]) opened to sterile field. 12:47:25 Tegaderm 4 x 4 (1626W) opened to sterile field. 12:47:26 PERCUTANEOUS ENTRY 19GA needle opened to sterile field. 12:50:15 Zero performed for pressure channel P1 12:51:33 Zero performed for pressure channel P1 12:55:23 Final Timeout: patient, procedure, and site verified with staff and physician. All members of the team are in agreement. 12:55:26 Right groin site verified by team. 12:55:30 Physical assessment completed. ASA score P 2 - A patient with mild systemic disease as per Juanjo Aguirre MD. 12:55:33 Sedation plan: IV Moderate Sedation Medication:Versed, Fentanyl 12:55:57 Versed 1 mg I.V. was administered by Krystian Herrera RN; for sedation; 12:56:07 Fentanyl 50 mcg I.V. was administered by Krystian Herrera RN; for sedation; 12:56:44 Baseline sample Acquired. 13:00:28 Procedure started. 13:00:37 Local anesthetic to right femoral artery with Lidocaine 2% by Juanjo Aguirre MD.INITIAL ACCESS ONLY 13:00:53 A 5 Fr sheath was inserted into the Right Femoral artery 13:01:16 Versed 1 mg I.V. was administered by Krystian Herrera RN; for sedation; 13:01:23 Fentanyl 50 mcg I.V. was administered by Krystian Herrera RN; for sedation; 13:08:21 A MULTIPACK Pigtail 5 Fr catheter was advanced over the wire and used for LV Angiography. 13:09:07 LV gram done using [place] 13:09:13 EF : 60 % 13:09:15 LV hemodynamics recorded. 13:09:18 Injector settings: Ml/sec: 10, Volume: 20, 13:09:20 Catheter removed. 13:09:39 A MULTIPACK 3DRC 5Fr catheter was advanced over the wire and used for Internal mammary arteriography. TO LAD 13:11:34 A MULTIPACK 3DRC 5Fr catheter was advanced over the wire and used for Right Coronary Angiography. 13:12:14 Catheter removed. 13:12:39 A DIAGNOSTIC AR 2 MOD 5 Fr catheter ([id number]) was advanced over the wire and used for SVG Angiography. TO CIRC 13:13:06 Use device set TAUTH PCI 13:13:10 INFLATOR Merit BasixCompak (GF6557) opened to sterile field. 13:13:11 SHEATH 6FR [place] (KEH404) opened to sterile field. 13:14:09 Catheter removed. 13:15:33 Sheath upsized to a 6 Fr Short. 13:16:05 Heparin Bolus 4000 units I.V. was administered by Krystian Herrera RN; for anticoagulation; 13:16:59 6 Fr AR 2.0 guide catheter was inserted over the wire 13:17:07 Guide Catheter removed. unable to cannulate vessel. 13:17:19 GUIDE 6FR AR 2.0 catheter ([id number]) opened to sterile field. 13:17:42 6 Fr HS II SH guide catheter was inserted over the wire 13:18:16 CHOICE PT ES wire advanced. 13:20:28 The EUPHORA 2.0 x 20 Balloon ([id number]) was advanced and then removed because of failure to cross lesion 13:20:34 Wire removed. 13:20:39 Guide Catheter removed. unable to get back-up support 13:21:19 SHEATH 7FR ARROW 45cm ([id number]) opened to sterile field. 13:22:19 GUIDE 7FR HS II SH catheter ([id number]) opened to sterile field. 13:22:20 SHEATH 7FR [place] (VVE131) opened to sterile field. 13:22:57 Sheath upsized to a 7 Fr Long. 13:23:08 7 Fr HS II SH guide catheter was inserted over the wire 13:24:15 CHOICE PT Extra Support J 300cm guide wire ([id number]) opened to sterile field. 13:27:14 The EUPHORA 2.0 x 20 Balloon ([id number]) was advanced and then removed because of failure to cross lesion 13:29:09 Inflation number: 1 A MAVERICK 2.0 X 30 balloon ([id number]) was prepped and advanced across the Mid RCA, then inflated to 23 BUTCH for 0:06 (min:sec). 13:29:24 Inflation number: 2 The MAVERICK 2.0 X 30 balloon ([id number]) was reinflated across the Mid RCA, to 23 BUTCH for 0:11 (min:sec). 13:30:10 Balloon removed over the wire. 13:32:26 The EMERGE OTW 1.5 x 20 balloon ([id number]) was advanced and then removed because of failure to cross lesion 13:32:51 CHOICE PT Extra Support J 300cm guide wire ([id number]) opened to sterile field. 13:33:31 2ND CHOICE PT ES wire advanced. 13:35:10 The EMERGE OTW 1.5 x 20 balloon ([id number]) was advanced and then removed because of failure to cross lesion 13:37:19 BALLOON READVANCED OVER 2ND CHOICE PT 13:38:20 The EMERGE OTW 1.5 x 20 balloon ([id number]) was advanced and then removed because of failure to cross lesion 13:38:34 Wire removed. damaged. 13:38:43 CHOICE PT Extra Support J 300cm guide wire (3632828T0) opened to sterile field. 13:38:55 3RD CHOICE PT ES wire advanced. 13:40:28 Heparin Bolus 3000 units I.V. was administered by Krystian Herrera RN; for anticoagulation; 13:43:44 The EMERGE OTW 1.5 x 20 balloon ([id number]) was advanced and then removed because 13:43:45 Wire removed. 13:45:42 Guide Catheter removed. unable to get back-up support 13:46:16 GUIDE 7FR AR 1.0 SH catheter ([id number]) opened to sterile field. 13:46:36 7 Fr AR 1.0 SH guide catheter was inserted over the wire 13:48:01 Guide Catheter removed. unable to cannulate vessel. 13:49:16 Versed 1 mg I.V. was administered by Krystian Herrera RN; for sedation; 13:50:41 7 Fr NEW HS II SH guide catheter was inserted over the wire 13:50:58 GUIDE 7FR HS II SH catheter ([id number]) opened to sterile field. 13:51:13 CHOICE PT ES wire advanced. 13:53:06 Inflation number: 3 A EUPHORA 3.0 x 15 Balloon ([id number]) was prepped and advanced across the Mid RCA, then inflated to 21 BUTCH for 0:06 (min:sec). 13:54:41 Balloon removed over the wire. 13:55:55 Inflation number: 4 The MAVERICK 2.0 X 30 balloon ([id number]) was reinflated across the Mid RCA, to 23 BUTCH for 0:07 (min:sec). 13:59:59 Nitroglycerin IC/IA 200 mcg I.A. was administered by Juanjo Aguirre MD; for vasodilation; 14:00:48 The MAVERICK 2.0 X 30 balloon ([id number]) was advanced and then removed because of failure to cross lesion 14:01:06 WHISPER 300cm guide wire ([id number]) opened to sterile field. 14:01:25 Wire removed. 14:01:31 WHISPER wire advanced. 14:02:41 Balloon removed over the wire. 14:05:01 The EMERGE OTW 1.5 x 20 balloon ([id number]) was advanced and then removed because of failure to cross lesion 14:06:32 Inflation number: 5 A MAVERICK 2.0 X 12 balloon ([id number]) was prepped and advanced across the Mid RCA, then inflated to 9 BUTCH for 0:06 (min:sec). 14:06:49 Balloon removed over the wire. 14:08:23 Heparin Bolus 3000 units I.V. was administered by Juanjo Aguirre MD; for anticoagulation; 14:08:28 Wire removed. 14:08:29 Guide catheter removed. 14:09:02 SHEATH EXCHANGED FOR 7FR SHORT. 14:09:08 Sheath removed intact; hemostasis achieved with Exoseal to the Right Femoral artery. 14:09:13 EXOSEAL 7Fr (EX700) opened to sterile field. 14:10:00 Procedure ended.(Physican Out) 14:10:05 Fluoroscopy time 31.00 minutes. 14:10:15 Flurop Dose total: 2204 14:10:15 Fluoroscopy dose: 2204 mGy 14:10:19 Contrast amount:Isovue 300 180ml. 14:10:20 Sharps counted by scrub and verified by R.N. 14:10:22 Insertion/operative site no bleeding no hematoma. 14:10:25 Post-op/insertion site Right Femoral artery dressed using a 4 x 4 and Tegaderm. 14:10:28 Post right femoral artery:stable, clean and dry 14:10:29 Post Procedure Pulses reassessed and unchanged 14:10:36 Post-procedure physical assessment completed. ASA score P 2 - A patient with mild systemic disease as per Juanjo Aguirre MD. 14:10:39 Post procedure rhythm: unchanged. 14:10:41 Estimated blood loss: 10 ml 14:10:42 Post procedure instruction explained to patient.Patient verbalizes understanding. 14:10:43 Patient needs reinforcement of post procedure teaching. 14:11:33 Procedure and supply charges have been captured, reviewed, submitted and are correct. 14:14:18 Procedure type changed to Cath procedure, Diagnostic procedure, LHC, LHC w/Coronaries w/Grafts, PCI procedure, PTCA, PTCA Initial, Miscellaneous Procedures, Moderate Sedation up to 45 minutes 14:16:09 GUIDE 6FR HS II SH catheter ([id number]) opened to sterile field. 14:18:26 Procedure Complication : No complications 14:18:29 See physician's report for complete and final results. 14:18:55 Vital chart was stopped 14:18:56 Report given to PCU. 14:19:01 Patient transfered to PCU with Bed. 14:19:11 Procedure ended. 14:19:11 Full Disclosure recording stopped 14:19:16 End room use (Document Last) Intervention Summary Intervention Notes Time ActionType Lesion and Equipment Action# Pressure Duration Attributes Used 13:20:28 Discard EUPHORA 2.0 Balloon x 20 Balloon ([id number]) 13:27:14 Discard EUPHORA 2.0 Balloon x 20 Balloon ([id number]) 13:29:09 Inflate Mid RCA MAVERICK 2.0 1 23 00:06 balloon X 30 balloon ([id number]) 13:29:24 Reinflate Mid RCA MAVERICK 2.0 2 23 00:11 balloon X 30 balloon ([id number]) 13:32:26 Discard EMERGE OTW Balloon 1.5 x 20 balloon ([id number]) 13:35:10 Discard EMERGE OTW Balloon 1.5 x 20 balloon ([id number]) 13:38:20 Discard EMERGE OTW Balloon 1.5 x 20 balloon ([id number]) 13:43:44 Discard EMERGE OTW Balloon 1.5 x 20 balloon ([id number]) 13:53:06 Inflate Mid RCA EUPHORA 3.0 3 21 00:06 balloon x 15 Balloon ([id number]) 13:55:55 Reinflate Mid RCA MAVERICK 2.0 4 23 00:07 balloon X 30 balloon ([id number]) 14:00:48 Discard MAVERICK 2.0 Balloon X 30 balloon ([id number]) 14:05:01 Discard EMERGE OTW Balloon 1.5 x 20 balloon ([id number]) 14:06:32 Inflate Mid RCA MAVERICK 2.0 5 9 00:06 balloon X 12 balloon ([id number]) Device Usage Item Name Manufacture Quantity Catalog Number Hospital Part Current Min imal Lot# / Charge Number Stock Stock Serial# Code ACIST Acist 1 18216 469194 275291 845735 20 Syringe Medical (19223) Systems Inc Bag Decanter Microtek 1 368352 99539 517857 5 () Medical Inc. Medline Cath Cardinal 1 [id number] 726265 38427 729089 5 Pack Health ([id number]) SHEATH 5FR Terumo 1 RZJ600 830326 696253 838894 40 [place] ([id number]) DIAGNOSTIC St Ganga 1 114353 334525 543518 059585 30 WIRE .035 260cm J wire (568919) ACIST Hand Acist 1 84734 422830 404130 216396 5 Control Medical (26885) Systems Inc ACIST Acist 1 00588 505939 008415 555199 5 Manifold Medical (13636) Systems Inc DIAGNOSTIC Cardinal 1 BO4924 689063 36667 122925 30 Multipack Health 5Fr catheter set (QA3233) Tegaderm 4 x 3M 1 1626W 711400 084278 140768 5 4 (1626W) PERCUTANEOUS Cook Medical 1 G41728 430157 253433 5 ENTRY 19GA needle MULTIPACK Cardinal 1 069258 5 Pigtail 5 Fr Health catheter MULTIPACK Cardinal 1 245964 5 3DRC 5Fr Health catheter DIAGNOSTIC Cardinal 1 [id number] 365215 653213 455495 20 AR 2 MOD 5 Health Fr catheter (052105F) INFLATOR Merit 1 YF5439 430457 761955 462310 15 [facility] Medical BasixCompak (FN0059) SHEATH 6FR Terumo 1 EAI450 327833 862923 535361 40 [place] (GOZ254) GUIDE 6FR AR Medtronic 1 LA4IP10 908356 85299 123402 1 2.0 catheter ([id number]) EUPHORA 2.0 Medtronic 1 [id number] 992435 566028 000560 5 [id number] x 20 Balloon ([id number]) SHEATH 7FR Teleflex 1 CL-77907 044135 537590 087490 1 ARROW 45cm ([id number]) GUIDE 7FR HS Medtronic 2 [id number] 705965 854010 208741 0 II SH catheter ([id number]) SHEATH 7FR Terumo 1 VHR306 033506 281809 332804 5 [place] (PVO928) CHOICE PT [place] 3 [id number] 684952 984214 089908 5 Extra Scientific Support J 300cm guide wire ([id number]) MAVERICK 2.0 [place] 1 [id number] 147587 671187 192870 1 [id number] X 30 balloon Scientific ([id number]) EMERGE OTW [place] 1 [id number] 858635 723300 325441 5 [id number] 1.5 x 20 Scientific balloon ([id number]) GUIDE 7FR AR Medtronic 1 [id number] 817634 993489 065464 0 1.0 SH catheter ([id number]) EUPHORA 3.0 Medtronic 1 [id number] 640912 860914 077471 5 [id number] x 15 Balloon ([id number]) WHISPER Ontiveros 1 [id number] 004567 730874 430256 5 300cm guide Vascular wire (2727526OM) MAVERICK 2.0 [place] 1 [id number] 513631 765431 788079 1 [id number] X 12 balloon Scientific ([id number]) EXOSEAL 7Fr Cardinal 1 EX700 932416 364711 855934 5 (EX700) Health GUIDE 6FR HS Medtronic 1 [id number] 658732 54542 441949 1 II SH catheter ([id number]) Signature Audit [place] Stage Time Signature Unsigned Intra-Procedure 12/29/2017 Sherlyn 2:19:26 PM Counts RT(R) Signatures Monitor : Sherlyn Signature : Counts RT Date : Time : [address] [address]
--- NOTE | ~2017-12-28 | OP ---
PATIENT NAME: ANU RAM MEDICAL RECORD: [id number] :41 LOCATION:D.M2 D.2125 ADMISSION DATE:12/29/17 SURGEON: PADMINI HUGHES MD DATE OF OPERATION: 12/29/2017 PROCEDURES: 1. PTCA, RCA. 2. Left heart catheterization. 3. Selective coronary angiography. 4. Left ventriculogram. INDICATION: Unstable angina. PROCEDURE: After informed consent was obtained and after detailed explanation of risks and benefits as well as alternative therapies, the patient elected to proceed with angiogram and angioplasty. The right femoral area was prepped and draped in normal sterile fashion. The right femoral artery was cannulated via modified Seldinger technique with placement of a 6-Citizen Of [place] sheath. All catheters were exchanged through the sheath. FINDINGS: Left ventriculogram was performed in standard 30-degree [place] view, reveals good cardiac wall motion. Ejection fraction 55%. SELECTIVE CORONARY ANGIOGRAPHY: 1. Left main is closed. 2. ONTIVEROS to the LAD is widely patent. Distal LAD is widely patent. 3. Vein graft in a skipped fashion to diagonal, OM1, OM2 is patent. The burns paiute vessels are small, diffusely diseased. 4. The right coronary has multiple previously placed stents. There is area of 80% in-stent restenosis in the mid vessel followed by a subtotal stenosis in the very distal vessel. PTCA OF THE RCA: We were able to approach the lesion in the mid vessel and ballooned this with 1.5 and 2.0 balloon; however, no balloon would cross the subtotal occlusion in the distal vessel. OVERALL IMPRESSION: Successful PTCA of the mid RCA, 80% initial stenosis to 0% residual. Inability to cross the subtotal stenosis distally with any balloon. TRANSINT:[id number] Voice Confirmation ID: [id number] DOCUMENT ID: [id number] PADMINI HUGHES MD at 1049 CC: [id number] DICTATION DATE: 12/29/17 1421 DIRECTOR LIFE SCIENCES: 12/29/17 1543 ADM IN [place] [id number] [place] [address]
[~2017-12-28 17:14] MED LIST changes: -ISOSORBIDE MON120 M1 PO; -LAMISIL250 MG PO
[2017-12-28 17:55] LABS: APPEARANCE CLEAR (CLEAR); BILIRUBIN NEGATIVE (NEGATIVE); COLOR YELLOW (YELLOW); GLUCOSE 1000 mg/dL (NEGATIVE); KETONE NEGATIVE (NEGATIVE); NITRITE NEGATIVE (NEGATIVE); PROTEIN NEGATIVE (NEGATIVE); UROBILINOGEN NORMAL (NORMAL)
[2017-12-28 18:07] LABS: BASOPHILS 0.5 % (0-2); EOSINOPHILS 6.4 % (0-7); HEMATOCRIT 35.7 % (42.0-54.0); HEMOGLOBIN 11.6 g/dL (13.5-17.5); IMMATURE GRANULOCYTES 0.5 % (0-5); LYMPHOCYTES 36.4 % (15-50); MCH 29.7 pg (26.0-34.0); MCHC 32.5 g/dL (31.0-37.0); MCV 91.3 fL (80.0-100.0); MEAN PLATELET VOLUME 9.2 fL (7.4-10.4); MONOCYTES 10.1 % (2-11); NEUTROPHILS 46.1 % (40-80); PLATELET COUNT 251 10x3/uL (130-400); RBC 3.91 10x6/uL (4.20-6.10); RDW 14.9 % (11.5-14.5); WBC 4.1 10x3/uL (4.8-10.8)
[2017-12-28 18:27] LABS: ALBUMIN 3.7 g/dL (3.4-5.0); ALKALINE PHOSPHATASE 43 U/L (46-116); ALT (SGPT) 26 U/L (10-68); CALC OSMOLALITY 297 mosm/kg (275-300); CALCIUM 9.3 mg/dL (8.5-10.1); CARBON DIOXIDE 29.6 mmol/L (21.0-32.0); CHLORIDE - SERUM 102 mmol/L (98-107); CREATININE - SERUM 1.3 mg/dL (0.6-1.3); GLUCOSE 310 mg/dL (74-106); POTASSIUM - SERUM 4.1 mmol/L (3.5-5.1); PROTEIN - SERUM 6.7 g/dL (6.4-8.2); SODIUM 140 mmol/L (136-145); UREA NITROGEN 31 mg/dL (7-18); eGFR NON AFRICAN AMERICAN 57 mL/min (90-120)
[2017-12-28 18:31] LABS: BILIRUBIN - TOTAL 0.09 mg/dL (0.2-1.3)
[2017-12-28 18:43] LABS: CKMB 1.8 U/L (0.0-3.6); CREATINE KINASE 104 UL (21-232)
[2017-12-28 18:50] LABS: TROPONIN-I 0.088 ng/mL (0.000-0.060)
[2017-12-28 21:32] VITALS: BP 123/83; BMI 25.1
[2017-12-29 00:30] VITALS: BP 122/62
[2017-12-29 01:28] LABS: CKMB 1.7 U/L (0.0-3.6); CREATINE KINASE 78 UL (21-232)
[2017-12-29 01:30] LABS: TROPONIN-I 0.436 ng/mL (0.000-0.060)
[2017-12-29] MEDS ORDERED: LAMISIL250 MG PO (02:26)
[2017-12-29 04:00] VITALS: BP 145/59
[2017-12-29 06:55] LABS: CKMB 1.6 U/L (0.0-3.6); CREATINE KINASE 70 UL (21-232)
[2017-12-29 06:57] LABS: TROPONIN-I 0.413 ng/mL (0.000-0.060)
[2017-12-29 08:20] VITALS: BP 125/77
[2017-12-29 08:26] VITALS: Ht 180.3 cm; Wt 83.7 kg
[2017-12-29 08:37] LABS: BASOPHILS 0.2 % (0-2); EOSINOPHILS 5.4 % (0-7); HEMATOCRIT 34.9 % (42.0-54.0); HEMOGLOBIN 11.2 g/dL (13.5-17.5); IMMATURE GRANULOCYTES 0.5 % (0-5); LYMPHOCYTES 40.7 % (15-50); MCH 29.1 pg (26.0-34.0); MCHC 32.1 g/dL (31.0-37.0); MCV 90.6 fL (80.0-100.0); MEAN PLATELET VOLUME 9.3 fL (7.4-10.4); MONOCYTES 10.7 % (2-11); NEUTROPHILS 42.5 % (40-80); PLATELET COUNT 275 10x3/uL (130-400); RBC 3.85 10x6/uL (4.20-6.10); WBC 4.1 10x3/uL (4.8-10.8)
[2017-12-29 08:41] LABS: ANION GAP 16.4 mmol/L (8-16); CALCIUM 9.4 mg/dL (8.5-10.1); CARBON DIOXIDE 24.8 mmol/L (21.0-32.0); CREATININE - SERUM 1.4 mg/dL (0.6-1.3); POTASSIUM - SERUM 4.2 mmol/L (3.5-5.1)
[2017-12-29 11:56] VITALS: BP 124/76
[2017-12-29 19:00] VITALS: BP 123/65
[2017-12-30 04:00] VITALS: BP 108/52
[2017-12-30 08:37] VITALS: BP 109/39
[2017-12-30] MEDS ORDERED: ISOSORBIDE MON120 M1 PO (12:09)
[2017-12-30 12:13] VITALS: BP 128/68
== END 2017-12-30 15:25 | disposition home or self-care (01) | DRG 251 ==
LOC: D.ER 17:14 → D.M2 19:53 → OBSVTIME 19:53 → D.M2 19:53
PROVIDERS: Emergency Medicine; Internal Medicine Interventional Cardiology
PROC: B2111ZZ Fluoroscopy of Multiple Coronary Arteries using Low Osmolar Contrast (ICD-10-PCS; 2017-12-29)
PROC: B2151ZZ Fluoroscopy of Left Heart using Low Osmolar Contrast (ICD-10-PCS; 2017-12-29)
PROC: 02703ZZ Dilation of Coronary Artery, One Artery, Percutaneous Approach (ICD-10-PCS; principal; 2017-12-29 09:30)
PROC: 4A023N7 Measurement of Cardiac Sampling and Pressure, Left Heart, Percutaneous Approach (ICD-10-PCS; 2017-12-29 09:30)
DX: I21.4 Non-ST elevation (NSTEMI) myocardial infarction (principal); T82.855A Stenosis of coronary artery stent, initial encounter; I25.110 Atherosclerotic heart disease of native coronary artery with unstable angina pectoris; Y83.8 Other surgical procedures as the cause of abnormal reaction of the patient, or of later complication, without mention of misadventure at the time of the procedure; E11.40 Type 2 diabetes mellitus with diabetic neuropathy, unspecified

== ENCOUNTER 2018-01-03 22:36 | Observation (INO) | payer MEDICARE, BC ==
[~2018-01-03] VITALS: Ht 180.3 cm; Wt 84.1 kg
--- NOTE | ~2018-01-03 | HEMODYNAMI ---
PATIENT:ANU RAM MEDICAL RECORD: [id number] : 41 LOCATION:[facility].2122 ADMISSION DATE: 01/04/18 Generatedon:01/05/201812:00 Patient name: ANU RAM Patient #: [id number] SSN: : 1945 Date of study: 01/05/2018 Page: Of Hemodynamic Procedure Report Patient Data Patient Demographics Procedure consent was obtained First Name: ANU Gender: Male Last Name: LEANNA : 1945 [facility] Initial: CINDY Age: 72 year(s) Patient #: [id number] Race: Unknown Additional ID: [id number] Contact details [address]: [address] [place] [address] State: [place] City: [place] Zip code: [address] Past Medical History Allergies Allergen Reaction Date Comments Reported Other 12/29/2015 LIPITOR,PRAVACHOL,STATINS,PLAVIX allergy Other 12/29/2017 plavix, red yeast rice allergy Statins 12/29/2017 Admission Admission Data Admission Date: 01/04/2018 Admission Time: 0:05 Room #: D.2122 Procedure Procedure Types Cath Procedure Diagnostic Procedure LHC LHC w/Coronaries w/Grafts Procedure Description Procedure Date Procedure Date: 01/05/2018 Procedure Start Time: 11:48 Procedure End Time: 12:00 Procedure Staff Name Function Juanjo Aguirre MD Performing Physician Sherlyn Tenorio RT Monitor Murray Haque RT Scrub Krystian Herrera RN Nurse Coral Garner RN Assistant Center Director Procedure Data Cath Procedure Fluoroscopy Diagnostic fluoroscopy Total fluoroscopy Time: 2.4 time: 2.4 min min Diagnostic fluoroscopy Total fluoroscopy dose: 314 dose: 314 mGy mGy Contrast Material Contrast Material Type Amount (ml) Isovue 300 50 Entry Location Entry Primary Successful Side Size Upsize Upsize Entry Closure Succes sful Closure Location (Fr) 1 (Fr) 2 (Fr) Remarks Device Remarks Femoral Left 5 Fr Exoseal artery Estimated blood loss: 5 ml Diagnostic catheters Device Type Used For End Catheter Placement DIAGNOSTIC Pigtail 5Fr LV Angiography catheter ([id number]) DIAGNOSTIC 3DRC 5Fr Internal mammary catheter ([id number]) arteriography DIAGNOSTIC 3DRC 5Fr Right Coronary catheter ([id number]) Angiography Procedure Complications No complications Procedure Medications Medication Administration Route Dosage 0.9% NaCl I.V. 100 ml/hr Oxygen NC 2 l/min Heparin Flush Bag added to field 2 bags (1000units/500ml NS) Lidocaine 2% added to field 20 Versed I.V. 1 mg Fentanyl I.V. 50 mcg Fentanyl I.V. 25 mcg Versed I.V. 0.5 mg Hemodynamics Rest Heart Rate: 93 (bpm) Snapshots Pre Cath Intra NCS Post Cath Vital Signs Time Heart Resp SPO2 etCO2 NIBP Rhythm Pain Sedation Rate (ipm) (%) (mmHg) (mmHg) Status Level (bpm) 11:38:02 92 20 96 0 117/74(92) NSR 0 (11) 10(A) , No pain 11:42:41 93 22 92 0 113/70(85) NSR 0 (11) 10(A) , No pain 11:47:19 92 25 92 0 114/65(86) NSR 0 (11) 9(A) , No pain 11:51:55 93 21 93 0 111/67(81) NSR 0 (11) 9(A) , No pain 11:56:34 93 19 92 0 114/65(88) NSR 0 (11) 9(A) , No pain Medications Time Medication Route Dose Verified Delivered Reason Notes Effe ctiveness by by 11:36:56 0.9% NaCl I.V. 100 Krystian Krystian Per ml/hr Javier Herrera physician RN RN 11:37:07 Oxygen NC 2 Krystian Krystian Per l/min Javier Herrera physician RN RN 11:37:49 Heparin Flush added 2 Krystian Krystian used for Bag to bags Lorigan Javier procedure (1000units/500ml field RN RN NS) 11:38:03 Lidocaine 2% added 20ml Krystian Krystian for local to vial Lorigan Lorigan anesthetic field RN RN 11:46:36 Versed I.V. 1 mg Krystian Krystian for Lorigan Lorigan sedation RN RN 11:46:46 Fentanyl I.V. 50 Krystian Krystian for mcg Lorigan Lorigan sedation RN RN 11:49:24 Fentanyl I.V. 25 Krystian Boland for mcg Lorigan Lorigan sedation RN RN 11:49:33 Versed I.V. 0.5 Krystian Boland for mg Lorigan Lorigan sedation RN cloth beamer Log Time Note 11:24:07 Coral Garner RN sent for patient. Start room use. 11:24:08 Time tracking: Regular hours 11:24:12 Plan of Care:Hemodynamics will remain stable., Cardiac rhythm will remain stable., Comfort level will be maintained., Respiratory function will remain adequate., Patient/ family verbilizes understanding of procedure., Procedure tolerated without complication., Recovers from procedure without complications.. 11:29:03 Patient received from PCU to CCL 1 Alert and oriented. Tansferred to table in Supine position. 11:29:05 Warm blankets applied, and brad hugger turned on for patient comfort. 11:29:05 Correct patient and procedure confirmed by team. 11:29:06 Signed procedure consent form obtained from patient. 11:29:08 ECG and BP/O2 sat monitors applied to patient. 11:29:08 Full Disclosure recording started 11:36:56 0.9% NaCl 100 ml/hr I.V. was administered by Krystian Herrera RN; Per physician; 11:37:07 Oxygen 2 l/min NC was administered by Krystian Herrera RN; Per physician; 11:37:12 Vital chart was started 11:37:49 Heparin Flush Bag (1000units/500ml NS) 2 bags added to field was administered by Krystian Herrera RN; used for procedure; 11:38:03 Lidocaine 2% 20ml vial added to field was administered by Krystian Herrera RN; for local anesthetic; 11:40:21 Baseline sample Acquired. 11:40:27 Rhythm: sinus rhythm 11:40:34 H&P Date Dictated: 01/04/2018 Within 30 days and on chart.. 11:40:50 Pre-procedure instructions explained to patient. 11:40:53 Pre-op teaching completed and patient verbalized understanding. 11:40:55 Family in waiting room. 11:40:56 Patient NPO since Midnight. 11:44:11 Is patient on blood thinner?Yes 11:44:13 ACC The patient was administered the following blood thiners within the last 24 hours: ACCEffient 11:44:15 Patient diabetic? Yes. 11:44:18 Previous problem with sedation/anesthesia? No ? 11:44:19 Snore? Yes 11:44:20 Sleep apnea? No 11:44:21 Deviated septum? No 11:44:22 Opens mouth fully? Yes 11:44:23 Sticks out tongue? Yes 11:44:24 Airway obstruction? No ? 11:44:28 Dentures? No ? 11:44:31 Pre procedure: right dorsailis pedis pulse 2+ Normal; easily identifiable; not easily obliterated 11:44:32 Patient pain scale 0/10 ?. 11:44:37 IV patent on arrival in right forearm with 0.9% NaCl at [facility]. 11:44:39 Lab results completed and on chart. 11:44:42 Left groin area was prepped with chlora-prep and draped in sterile fashion 11:44:43 Alarms reviewed by R. N. 11:44:43 Sharps counted by scrub and verified by R.N. 11:44:45 Final Timeout: patient, procedure, and site verified with staff and physician. All members of the team are in agreement. 11:44:46 Left groin site verified by team. 11:44:48 Physical assessment completed. ASA score P 2 - A patient with mild systemic disease as per Juanjo Aguirre MD. 11:44:51 Sedation plan: IV Moderate Sedation Medication:Versed, Fentanyl 11:46:36 Versed 1 mg I.V. was administered by Krystian Herrera RN; for sedation; 11:46:46 Fentanyl 50 mcg I.V. was administered by Krystian Herrera RN; for sedation; 11:47:57 Procedure started. 11:48:03 Local anesthetic to left femerol artery with Lidocaine 2% by Juanjo Aguirre MD.INITIAL ACCESS ONLY 11:48:13 A 5 Fr sheath was inserted into the Left Femoral artery 11:48:35 Use device set Femoral Dx 11:48:36 ACIST Syringe (91860) opened to sterile field. 11:48:37 Bag Decanter (2002S) opened to sterile field. 11:48:37 Medline Cath Pack ([id number]) opened to sterile field. 11:48:37 SHEATH 5FR [place] (JIZ972) opened to sterile field. 11:48:38 DIAGNOSTIC WIRE .035 260cm J wire (056021) opened to sterile field. 11:48:40 ACIST Hand Control (88501) opened to sterile field. 11:48:40 ACIST Manifold (34811) opened to sterile field. 11:48:41 Tegaderm 4 x 4 (1626W) opened to sterile field. 11:48:42 PERCUTANEOUS ENTRY 19GA needle opened to sterile field. 11:49:02 A DIAGNOSTIC Pigtail 5Fr catheter ([id number]) was advanced over the wire and used for LV Angiography. 11:49:24 Fentanyl 25 mcg I.V. was administered by Krystian Herrera RN; for sedation; 11:49:33 Versed 0.5 mg I.V. was administered by Krystian Herrera RN; for sedation; 11:49:52 LV gram done using [place] 11:49:53 LV hemodynamics recorded. 11:49:55 Injector settings: Ml/sec: 10, Volume: 20, 11:50:01 EF : 40 % 11:50:02 Catheter removed. 11:50:20 A DIAGNOSTIC 3DRC 5Fr catheter ([id number]) was advanced over the wire and used for Internal mammary arteriography. to LAD 11:51:04 If diabetic: On Metformin? Yes 11:51:14 If on Metformin: Last Dose? 01/03/2018 11:52:49 Catheter removed. 11:53:08 A DIAGNOSTIC 3DRC 5Fr catheter ([id number]) was advanced over the wire and used for Right Coronary Angiography. 11:54:25 Catheter removed. 11:55:05 Sheath removed intact; hemostasis achieved with Exoseal to the Left Femoral artery. 11:55:07 Procedure ended.(Physican Out) 11:55:34 EXOSEAL 5Fr (EX500) opened to sterile field. 11:56:54 Fluoroscopy time 02.40 minutes. 11:56:57 Flurop Dose total: 314 11:56:57 Fluoroscopy dose: 314 mGy 11:57:03 Contrast amount:Isovue 300 50ml. 11:57:04 Sharps counted by scrub and verified by R.N. 11:57:06 Insertion/operative site no bleeding no hematoma. 11:57:11 Post-op/insertion site Left Femoral artery dressed using a 4 x 4 and Tegaderm. 11:57:20 Post left femerol artery:stable, clean and dry 11:57:21 Post Procedure Pulses reassessed and unchanged 11:57:24 Post-procedure physical assessment completed. ASA score P 2 - A patient with mild systemic disease as per Juanjo Aguirre MD. 11:57:27 Post procedure rhythm: unchanged. 11:57:30 Estimated blood loss: 5 ml 11:57:32 Post procedure instruction explained to patient.Patient verbalizes understanding. 11:57:33 Patient needs reinforcement of post procedure teaching. 11:57:47 Procedure Complication : No complications 11:57:49 See physician's report for complete and final results. 11:58:21 Procedure and supply charges have been captured, reviewed, submitted and are correct. 11:59:54 Vital chart was stopped 11:59:56 Report given to PCU. 12:00:06 Patient transfered to PCU with Bed. 12:00:07 Procedure ended. 12:00:07 Full Disclosure recording stopped 12:00:10 End room use (Document Last) Device Usage Item Name Manufacture Quantity Catalog Hospital Part Current Minimal Lot# / Number Charge Number Stock Stock Serial# Code ACIST Acist 1 70175 133690 825446 421631 20 Syringe Medical (30743) Systems Inc Bag Decanter Microtek 1 2001S 367648 76250 474913 5 (2001S) Medical Inc. Medline Cath Cardinal 1 [id number] 952920 14873 748614 5 Pack Health ([id number]) SHEATH 5FR Terumo 1 MJT049 425529 156163 961998 40 [place] (KEX994) DIAGNOSTIC St Ganga 1 140201 549624 620979 361786 30 WIRE .035 260cm J wire (304908) ACIST Hand Acist 1 34312 078931 877075 132718 5 Control Medical (85336) Systems Inc ACIST Acist 1 03054 004915 358379 824070 5 Manifold Medical (06825) Systems Inc Tegaderm 4 x 3M 1 1626W 226741 794129 321624 5 4 (1626W) PERCUTANEOUS Cook Medical 1 N80698 324371 246068 5 ENTRY 19GA needle DIAGNOSTIC Cardinal 1 [id number] 852506 453758 020927 5 Pigtail 5Fr Health catheter (438737C) DIAGNOSTIC Cardinal 1 [id number] 408300 123283 909152 9 3DRC 5Fr Health catheter (972049M) EXOSEAL 5Fr Cardinal 1 EX500 237449 246279 986274 10 (EX500) Health Signature Audit Paicines Stage Time Signature Unsigned Intra-Procedure 01/05/2018 Sherlyn 12:00:26 PM Counts RT(R) Signatures Monitor : Sherlyn Signature : Counts RT Date : Time : [address] [address]
--- NOTE | ~2018-01-03 | OP ---
PATIENT NAME: ANU RAM MEDICAL RECORD: [id number] :41 LOCATION:D.M2 D.2 ADMISSION DATE:01/04/18 SURGEON: PADMINI HUGHES MD DATE OF OPERATION: 01/05/2018 PROCEDURES: 1. Left heart catheterization. 2. Selective coronary angiography. 3. Left ventriculogram. 4. Vein graft angiography. 5. ONTIVEROS angiography. INDICATION: Angina and coronary artery disease. PROCEDURE IN DETAIL: After informed consent was obtained and after detailed explanation of risks, benefits as well as alternative therapies, the patient elected to proceed with angiogram and heart catheterization. The left femoral area is prepped and draped in normal sterile fashion. Left femoral artery was cannulated via modified Seldinger technique with placement of 5-[place] sheath. All catheters exchanged through this sheath. FINDINGS: Left ventriculogram was performed in standard 30-degree [place] view, reveals mild global hypokinesis, ejection fraction 40%, unchanged from previous study. SELECTIVE CORONARY ANGIOGRAPHY: 1. Left main is with no significant angiographic disease. 2. Left main is closed. 3. ONTIVEROS to the LAD is widely patent. Distal LAD is widely patent. 4. Vein graft in a skipped fashion to circumflex is widely patent. The distal circumflex is small and diffusely diseased, but patent. 5. The right coronary has multiple previously placed stents. These are widely patent. This is unchanged from previous angiography. There is a 95% stenosis after this. This could not be crossed previously, it is unchanged. OVERALL IMPRESSION: A 95% stenosis of the distal right coronary artery, this will have to be treated medically as no balloon would cross this lesion and catheterization elsewise is unchanged. TRANSINT:[id number] Voice Confirmation ID: [id number] DOCUMENT ID: [id number] PADMINI HUGHES MD at 1148 CC: [id number] DICTATION DATE: 01/05/18 1201 GRAPHICS MANAGER: 01/05/18 1221 DIS IN 01/05/18 [place] [id number]
--- NOTE | ~2018-01-03 | DS ---
PATIENT:ANU RAM :41 MEDICAL RECORD: [id number] DISCHARGE SUMMARY ADMISSION DATE: 01/04/18 DISCHARGE DATE: 01/05/18 DISCHARGE DIAGNOSES: 1. Angina. 2. Coronary artery disease. 3. Previous percutaneous transluminal coronary angioplasty stent. 4. Previous coronary bypass graft surgery. 5. Hypertension. 6. Hyperlipidemia. HOSPITAL COURSE: Mr. Ram presents with recurrent anginal symptomatology. He presented last week with anginal symptomatology. He had 99% stenosis of his distal RCA, which could not be crossed by any balloon. He underwent cardiac catheterization. He has wide patency of the ONTIVEROS to the LAD, vein graft to the circumflex and unchanged anatomy on the right. He was placed on Imdur 30 mg b.i.d. He had no further chest pain and was discharged home with the addition of the Imdur 30 mg b.i.d. to his current medical regimen. He will follow up with [facility] in 1 month. TRANSINT:[id number] Voice Confirmation ID: [id number] DOCUMENT ID: [id number] PADMINI HUGHES MD at 1148 CC: [id number] DICTATION DATE: 01/05/18 1159 DRILLING PLANT OPERATOR: 01/05/18 1328 DIS IN 01/05/18 [place] [id number] [place] [id number]
[~2018-01-03 22:36] MED LIST changes: +ISOSORBIDE MON120 M1 PO; +LAMISIL250 MG PO
[2018-01-03 23:15] LABS: BASOPHILS 0.2 % (0-2); EOSINOPHILS 3.7 % (0-7); HEMATOCRIT 32.2 % (42.0-54.0); HEMOGLOBIN 10.8 g/dL (13.5-17.5); IMMATURE GRANULOCYTES 0.8 % (0-5); LYMPHOCYTES 33.8 % (15-50); MCH 30.2 pg (26.0-34.0); MCHC 33.5 g/dL (31.0-37.0); MCV 89.9 fL (80.0-100.0); MEAN PLATELET VOLUME 9.2 fL (7.4-10.4); MONOCYTES 10.6 % (2-11); NEUTROPHILS 50.9 % (40-80); PLATELET COUNT 313 10x3/uL (130-400); RBC 3.58 10x6/uL (4.20-6.10); RDW 15.4 % (11.5-14.5); WBC 5.2 10x3/uL (4.8-10.8)
[2018-01-03 23:34] LABS: ALBUMIN 3.7 g/dL (3.4-5.0); ALKALINE PHOSPHATASE 43 U/L (46-116); ALT (SGPT) 27 U/L (10-68); BILIRUBIN - TOTAL 0.15 mg/dL (0.2-1.3); CALC OSMOLALITY 287 mosm/kg (275-300); CALCIUM 9.7 mg/dL (8.5-10.1); CARBON DIOXIDE 24.7 mmol/L (21.0-32.0); CHLORIDE - SERUM 99 mmol/L (98-107); CREATININE - SERUM 1.5 mg/dL (0.6-1.3); POTASSIUM - SERUM 3.9 mmol/L (3.5-5.1); PROTEIN - SERUM 6.8 g/dL (6.4-8.2); SODIUM 138 mmol/L (136-145); UREA NITROGEN 24 mg/dL (7-18); eGFR NON AFRICAN AMERICAN 49 mL/min (90-120)
[2018-01-03 23:36] LABS: GLUCOSE 242 mg/dL (74-106)
[2018-01-03 23:46] LABS: CHOL - HDL RATIO 7.1 ratio (2.3-4.9); CHOLESTEROL, TOTAL 248 mg/dL (0-200); CKMB 1.5 U/L (0.0-3.6); CREATINE KINASE 88 UL (21-232); HDL CHOLESTEROL 35 mg/dL (32-96); LDL CHOLESTEROL 163 mg/dL (0-100); LDL-HDL RATIO 4.7 ratio (1.5-3.5); MAGNESIUM - SERUM 1.6 mg/dL (1.8-2.4); PRO BNP 157 pg/mL (0-125); TRIGLYCERIDE 254 mg/dL (30-200); TROPONIN-I 0.047 ng/mL (0.000-0.060)
[2018-01-04 01:17] VITALS: BP 137/75; BMI 25.8
[2018-01-04 05:09] VITALS: BP 136/73
[2018-01-04 05:52] LABS: TROPONIN-I 0.547 ng/mL (0.000-0.060)
[2018-01-04 07:59] VITALS: BP 151/83
[2018-01-04 08:04] LABS: HEMATOCRIT 29.7 % (42.0-54.0); HEMOGLOBIN 9.8 g/dL (13.5-17.5); MCV 90.8 fL (80.0-100.0); MEAN PLATELET VOLUME 9.3 fL (7.4-10.4); RBC 3.27 10x6/uL (4.20-6.10); RDW 15.7 % (11.5-14.5); WBC 5.2 10x3/uL (4.8-10.8)
[2018-01-04 10:41] LABS: APTT 26.6 SECONDS (22.8-39.4); INR 1.02 (0.85-1.17)
[2018-01-04 10:57] LABS: CREATINE KINASE 235 UL (21-232)
[2018-01-04 10:58] LABS: TROPONIN-I 1.902 ng/mL (0.000-0.060)
[2018-01-04 11:22] VITALS: BP 140/80
[2018-01-04 12:14] LABS: ANION GAP 14.5 mmol/L (8-16); CALCIUM 8.6 mg/dL (8.5-10.1); CARBON DIOXIDE 22.9 mmol/L (21.0-32.0); CREATININE - SERUM 1.3 mg/dL (0.6-1.3); POTASSIUM - SERUM 4.4 mmol/L (3.5-5.1)
[2018-01-04 12:41] VITALS: Ht 180.3 cm; Wt 84.1 kg
[2018-01-04 15:32] VITALS: BP 133/75
[2018-01-04 17:50] LABS: CREATINE KINASE 508 UL (21-232)
[2018-01-04 17:51] LABS: CKMB 57.8 U/L (0.0-3.6); TROPONIN-I 7.297 ng/mL (0.000-0.060)
[2018-01-04 20:58] VITALS: BP 129/67
[2018-01-05 01:12] VITALS: BP 121/71
[2018-01-05 05:58] VITALS: BP 108/67
[2018-01-05 06:16] LABS: HEMATOCRIT 28.6 % (42.0-54.0); HEMOGLOBIN 9.4 g/dL (13.5-17.5); MCH 29.6 pg (26.0-34.0); MCHC 32.9 g/dL (31.0-37.0); MCV 89.9 fL (80.0-100.0); MEAN PLATELET VOLUME 8.4 fL (7.4-10.4); PLATELET COUNT 250 10x3/uL (130-400); RBC 3.18 10x6/uL (4.20-6.10); RDW 15.2 % (11.5-14.5)
[2018-01-05 06:33] LABS: ANION GAP 10.4 mmol/L (8-16); CALCIUM 8.4 mg/dL (8.5-10.1); CARBON DIOXIDE 28.5 mmol/L (21.0-32.0); CREATININE - SERUM 1.1 mg/dL (0.6-1.3); POTASSIUM - SERUM 3.9 mmol/L (3.5-5.1)
[2018-01-05 07:39] LABS: BASOPHILS 0.2 % (0-2); EOSINOPHILS 3.9 % (0-7); IMMATURE GRANULOCYTES 0.6 % (0-5); MONOCYTES 11.6 % (2-11); NEUTROPHILS 55.7 % (40-80)
[2018-01-05 08:08] VITALS: BP 118/71
[2018-01-05 10:58] VITALS: BP 123/78
[2018-01-05 15:33] VITALS: BP 114/62
[2018-01-05] MEDS ORDERED: NITROSTAT0.4 MG SL (18:32)
== END 2018-01-05 20:35 | disposition home or self-care (01) ==
LOC: D.ER 22:36 → D.M2 01-04 00:05 → OBSVTIME 01-04 00:05 → D.M2 01-04 00:05
PROVIDERS: Emergency Medicine; Internal Medicine Cardiovascular Disease; Internal Medicine Nephrology
DX: I25.119 Atherosclerotic heart disease of native coronary artery with unspecified angina pectoris (principal); I45.10 Unspecified right bundle-branch block; I10 Essential (primary) hypertension; E78.5 Hyperlipidemia, unspecified; Z95.5 Presence of coronary angioplasty implant and graft; Z95.1 Presence of aortocoronary bypass graft; E11.40 Type 2 diabetes mellitus with diabetic neuropathy, unspecified; Z79.4 Long term (current) use of insulin; D64.9 Anemia, unspecified; E11.65 Type 2 diabetes mellitus with hyperglycemia; I48.91 Unspecified atrial fibrillation; R79.89 Other specified abnormal findings of blood chemistry

== ENCOUNTER → 2018-05-28 13:39 | Outpatient (CLI) | payer MEDICARE, BC ==
[2018-01-04 12:41] VITALS: BMI 25.8
== END | disposition home or self-care (01) ==
LOC: D.ECHO 13:39
DX: R06.02 Shortness of breath (principal); I10 Essential (primary) hypertension

== ENCOUNTER 2018-10-12 08:20 | Outpatient (CLI) | payer MEDICARE, BC ==
[~2018-10-12] VITALS: Ht 180.3 cm; Wt 81.8 kg
--- NOTE | ~2018-10-12 | HEMODYNAMI ---
PATIENT:ANU RAM MEDICAL RECORD: [id number] : 41 LOCATION:D.CAT ADMISSION DATE: 10/12/18 Generatedon:10/12/201810:20 Patient name: ANU RAM Patient #: [id number] SSN: : 1945 Date of study: 10/12/2018 Page: Of Hemodynamic Procedure Report Patient Data Patient Demographics Procedure consent was obtained First Name: ANU Gender: Male Last Name: LEANNA : 1945 [facility] Initial: CINDY Age: 72 year(s) Patient #: [id number] Race: Unknown Additional ID: [id number] Contact details Address: [address] [place] [address] State: [place] City: [place] Zip code: [address] Past Medical History Allergies Allergen Reaction Date Comments Reported Other 12/29/2015 LIPITOR,PRAVACHOL,STATINS,PLAVIX allergy Other 12/29/2017 plavix, red yeast rice allergy Statins 12/29/2017 Other 10/12/2018 plavix, red yeast rice allergy Statins 10/12/2018 Admission Admission Data Admission Date: 10/12/2018 Admission Time: 8:20 Admit Source: Other Lab Results Lab Result Date: 10/12/2018 Lab Result Time: 8:40 Biochemistry Name Units Result Min Max BUN mg/dl 32 --(----)-* 7 18 Creatinine mg/dl 1.1 --(--*-)-- 0.6 1.3 CBC Name Units Result Min Max Hematocrit % 35.1 *-(----)-- 42 54 Hemoglobin g/dl 11.7 *-(----)-- 13.5 17.5 Procedure Procedure Types Cath Procedure Diagnostic Procedure LHC LHC w/Coronaries w/Grafts Procedure Description Procedure Date Procedure Date: 10/12/2018 Procedure Start Time: 10:07 Procedure End Time: 10:19 Procedure Staff Name Function Juanjo Aguirre MD Performing Physician Sherlyn Tenorio RT Monitor Murray Haque RT Scrub Coral Garner RN Nurse Edmond Iglesias RN Terrazzo Tile Maker Procedure Data Cath Procedure Fluoroscopy Diagnostic fluoroscopy Total fluoroscopy Time: 1.5 time: 1.5 min min Diagnostic fluoroscopy Total fluoroscopy dose: 152 dose: 152 mGy mGy Contrast Material Contrast Material Type Amount (ml) Isovue 300 45 Entry Location Entry Primary Successful Side Size Upsize Upsize Entry Closure Succes sful Closure Location (Fr) 1 (Fr) 2 (Fr) Remarks Device Remarks Femoral Right 6 Fr 6 Fr 6 Fr Exoseal artery Short Long Short Estimated blood loss: 5 ml Diagnostic catheters Device Type Used For End Catheter Placement Medtronic Dexterity 5Fr LV Angiography Pigtail catheter(NO COST SUPPLY) Medtronic Dexterity 5Fr Left Coronary JL 4.0 catheter (NO COST Angiography SUPPLY) Medtronic Dexterity 5Fr Right Coronary 3DRC catheter (NO COST Angiography SUPPLY) Medtronic Dexterity 5Fr Internal mammary 3DRC catheter (NO COST arteriography SUPPLY) DIAGNOSTIC AR2 MOD 5 Fr SVG Angiography catheter ([id number]) Procedure Complications No complications Procedure Medications Medication Administration Route Dosage Oxygen etCO2 Nasal cannula 2 l/min Lidocaine 2% added to field 20 Heparin Flush Bag added to field 2 bags (1000units/500ml NS) 0.9% NaCl I.V. 100 ml/hr Versed I.V. 2 mg Fentanyl I.V. 100 mcg Fentanyl I.V. 50 mcg Hemodynamics Rest HGB: 11.7 (g/dl) Heart Rate: 68 (bpm) Snapshots Pre Cath Intra NCS Post Cath Vital Signs Time Heart Resp SPO2 etCO2 NIBP (mmHg) Rhythm Pain Sedation Rate (ipm) (%) (mmHg) Status Level (bpm) 9:51:23 70 15 98 24.8 138/76(121) NSR 0 (11) 10(A) , No pain 9:55:41 76 15 94 1.5 117/68(99) NSR 0 (11) 10(A) , No pain 9:59:55 74 18 97 0 132/73(105) NSR 0 (11) 10(A) , No pain 10:04:07 75 15 96 1.5 118/70(92) NSR 0 (11) 10(A) , No pain 10:08:21 74 16 98 9.8 134/72(100) NSR 0 (11) 9(A) , No pain 10:12:33 75 14 95 2.2 118/66(87) NSR 0 (11) 9(A) , No pain 10:16:41 78 13 95 32.4 119/74(100) NSR 0 (11) 10(A) , No pain Medications Time Medication Route Dose Verified Delivered Reason Notes Eff ectiveness by by 9:57:23 Oxygen etCO2 2 Juanjo Buffie used for Nasal l/min Timothy Garner RN procedure cannula 9:57:36 Lidocaine 2% added 20ml Juanjo Juanjo for local to vial Timothy Aguirre MD anesthetic field 9:57:46 Heparin Flush added 2 Juanjo Juanjo used for Bag to bags Timothy Aguirre MD procedure (1000units/500ml field NS) 9:57:56 0.9% NaCl I.V. 100 Juanjo Buffie Per ml/hr Timothy Garner RN physician 10:03:49 Versed I.V. 2 mg Juanjo Cespedesie for Timothy Garner RN sedation 10:03:56 Fentanyl I.V. 100 Juanjo Buffie for mcg Timothy Garner RN sedation 10:11:39 Fentanyl I.V. 50 Juanjo Buffie for mcg Timothy Garner RN sedation Procedure Log Time Note 9:31:01 Informed consent obtained and on chart 9:31:06 Admit Source: Other 9:31:23 Diagnostic Cath status Elective 9:32:00 Lab Result : BUN 32 mg/dl 9:32:00 Lab Result : Creatinine 1.1 mg/dl 9:32:02 Lab results completed and on chart. 9:40:03 Edmond Iglesias RN sent for patient. Start room use. 9:41:24 Lab Result : Hemoglobin 11.7 g/dl 9:41:24 Lab Result : Hematocrit 35.1 % 9:43:07 Time tracking: Regular hours (M-F 7:00 - 5:00) 9:43:11 Plan of Care:Hemodynamics will remain stable., Cardiac rhythm will remain stable., Comfort level will be maintained., Respiratory function will remain adequate., Patient/ family verbilizes understanding of procedure., Procedure tolerated without complication., Recovers from procedure without complications.. 9:43:17 Patient received from Pre/Post Procedure Room to CCL 3 Alert and oriented. Tansferred to table in Supine position. 9:43:18 Warm blankets applied, and brad hugger turned on for patient comfort. 9:43:18 Correct patient and procedure confirmed by team. 9:43:20 ECG and BP/O2 sat monitors applied to patient. 9:43:21 Full Disclosure recording started 9:50:15 Vital chart was started 9:50:16 Baseline sample Acquired. 9:50:18 Rhythm: sinus rhythm 9:50:32 H&P Date Dictated: 10/05/2018 Within 30 days and on chart., H&P Addendum completed by physician on day of procedure. (MUST COMPLETE FOR ALL OUTPATIENTS). 9:50:33 Pre-procedure instructions explained to patient. 9:50:33 Pre-op teaching completed and patient verbalized understanding. 9:50:35 Family in patients room. 9:50:38 Patient NPO since Midnight. 9:50:58 Patient allergic to Other allergyplavix, red yeast rice 9:51:07 Patient allergic to Statins 9:51:09 Is the patient allergic to Iodine/contrast media? No. 9:51:12 Is patient on blood thinner?No 9:51:13 Patient diabetic? Yes. 9:51:14 If diabetic: On Metformin? Yes 9:51:16 If on Metformin: Last Dose? 10/10/2018 9:51:20 Previous problem with sedation/anesthesia? No ? 9:51:21 Snore? Yes 9:51:22 Sleep apnea? No 9:51:23 Deviated septum? No 9:51:24 Opens mouth fully? Yes 9:51:24 Sticks out tongue? Yes 9:51:27 Airway obstruction? No ? 9:51:29 Dentures? Yes IN 9:51:32 Pre procedure: right dorsailis pedis pulse 2+ Normal; easily identifiable; not easily obliterated 9:51:33 Patient pain scale 0/10 ?. 9:51:45 IV patent on arrival in left forearm with 0.9% NaCl at KVO. 9:51:52 Right groin area was prepped with chlora-prep and draped in sterile fashion 9:51:54 Alarms reviewed by R. N. 9:51:54 Sharps counted by scrub and verified by R.N. 9:51:57 Use device set Femoral Dx 9:51:58 ACIST Syringe (91508) opened to sterile field. 9:51:58 Bag Decanter () opened to sterile field. 9:51:59 Medline Cath Pack ([id number]) opened to sterile field. 9:51:59 DIAGNOSTIC WIRE .035 260cm J wire ([id number]) opened to sterile field. 9:52:01 ACIST Hand Control (83914) opened to sterile field. 9:52:02 ACIST Manifold (48746) opened to sterile field. 9:52:03 Tegaderm 4 x 4 (1626W) opened to sterile field. 9:52:06 SHEATH 5FR [place] (QYF130) opened to sterile field. 9:57:23 Oxygen 2 l/min etCO2 Nasal cannula was administered by Coral Garner RN; used for procedure; 9:57:36 Lidocaine 2% 20ml vial added to field was administered by Juanjo Aguirre MD; for local anesthetic; 9:57:46 Heparin Flush Bag (1000units/500ml NS) 2 bags added to field was administered by Juanjo Aguirre MD; used for procedure; 9:57:56 0.9% NaCl 100 ml/hr I.V. was administered by Croal Garner RN; Per physician; 10:02:23 Final Timeout: patient, procedure, and site verified with staff and physician. All members of the team are in agreement. 10:02:24 Right groin site verified by team. 10:02:29 Physical assessment completed. ASA score P 2 - A patient with mild systemic disease as per Juanjo Aguirre MD. 10:02:35 Sedation plan: IV Moderate Sedation Medication:Versed, Fentanyl 10:03:49 Versed 2 mg I.V. was administered by Coral Garner RN; for sedation; 10:03:56 Fentanyl 100 mcg I.V. was administered by Coral Garner RN; for sedation; 10:07:48 Zero performed for pressure channel P1 10:07:53 Procedure started. 10:07:57 Local anesthetic to right femoral artery with Lidocaine 2% by Juanjo Aguirre MD.INITIAL ACCESS ONLY 10:08:04 A 6 Fr Short sheath was inserted into the Right Femoral artery 10:09:36 SHEATH 6FR Destination (RSR01) opened to sterile field. 10:09:43 Sheath upsized to a 6 Fr Long. 10:11:35 A Leaf Dexterity 5Fr Pigtail catheter(NO COST SUPPLY) was advanced over the wire and used for LV Angiography. 10:11:38 LV gram done using [place] 10:11:39 Fentanyl 50 mcg I.V. was administered by Coral Garner RN; for sedation; 10:11:44 EF : 60 % 10:11:57 Injector settings: Ml/sec: 10, Volume: 20, 10:11:59 LV hemodynamics recorded. 10:12:00 Catheter removed. 10:12:12 A Medtronic Dexterity 5Fr JL 4.0 catheter (NO COST SUPPLY) was advanced over the wire and used for Left Coronary Angiography. 10:13:28 Catheter removed. 10:13:36 A Medtronic Dexterity 5Fr 3DRC catheter (NO COST SUPPLY) was advanced over the wire and used for Right Coronary Angiography. 10:14:10 Catheter removed. 10:14:39 A Medtronic Dexterity 5Fr 3DRC catheter (NO COST SUPPLY) was advanced over the wire and used for Internal mammary arteriography. to lad 10:15:02 A DIAGNOSTIC AR2 MOD 5 Fr catheter ([id number]) was advanced over the wire and used for SVG Angiography. to circ om1/om2 10:15:13 SHEATH 6FR [place] (FXH114) opened to sterile field. 10:15:22 EXOSEAL 6Fr (EX600) opened to sterile field. 10:15:27 Catheter removed. 10:15:41 Sheath upsized to a 6 Fr Short. 10:15:41 Sheath removed intact; hemostasis achieved with Exoseal to the Right Femoral artery. 10:15:43 Procedure ended.(Physican Out) 10:16:14 Fluoroscopy time 01.50 minutes. 10:16:19 Flurop Dose total: 152 10:16:19 Fluoroscopy dose: 152 mGy 10:16:23 Contrast amount:Isovue 300 45ml. 10:16:25 Sharps counted by scrub and verified by R.N. 10:16:26 Insertion/operative site no bleeding no hematoma. 10:16:28 Post-op/insertion site Right Femoral artery dressed using a 4 x 4 and Tegaderm. 10:16:31 Post right femoral artery:stable, clean and dry 10:16:33 Post Procedure Pulses reassessed and unchanged 10:16:35 Post-procedure physical assessment completed. ASA score P 2 - A patient with mild systemic disease as per Juanjo Aguirre MD. 10:16:37 Post procedure rhythm: unchanged. 10:16:45 Estimated blood loss: 5 ml 10:16:47 Post procedure instruction explained to patient.Patient verbalizes understanding. 10:16:47 Patient needs reinforcement of post procedure teaching. 10:16:52 Procedure type changed to Cath procedure, Diagnostic procedure, LHC, LHC w/Coronaries w/Grafts 10:17:27 Procedure Complication : No complications 10:17:29 See physician's report for complete and final results. 10:18:26 Procedure and supply charges have been captured, reviewed, submitted and are correct. 10:18:26 Vital chart was stopped 10:18:28 Report given to Pre/Post Procedure Room. 10:18:30 Patient transfered to Pre/Post Procedure Room with Stretcher. 10:19:33 Procedure ended. 10:19:33 Full Disclosure recording stopped 10:19:37 End room use (Document Last) Device Usage Item Name Manufacture Quantity Catalog Hospital Part Current Minimal Lot# / Number Charge Number Stock Stock Serial# Code ACIST Acist 1 79984 [id number] 206214 419170 20 Syringe Medical (48697) Systems Inc Bag Microtek 1 2001S 108944 46889 137799 5 Decanter Medical Inc. () Medline Medline 1 [id number] 322859 45724 299857 5 Cath Pack ([id number]) DIAGNOSTIC St [place] 1 587607 059072 365982 982513 30 WIRE .035 260cm J wire (315509) ACIST Hand Acist 1 16858 668932 658159 518005 5 Control Medical (94701) Systems Inc ACIST Acist 1 49626 460501 760628 523055 5 Manifold Medical (54621) Systems Inc Tegaderm 4 3M 1 1626W 021760 777145 650883 5 x 4 (1626W) SHEATH 5FR Terumo 1 ALY975 992339 155825 548725 40 [place] (JEK949) SHEATH 6FR Terumo 1 RSR01 656295 34215 072391 5 Destination (RSR01) Medtronic Medtronic 1 [id number] 440392 129076 5 Dexterity 5Fr Pigtail catheter(NO COST SUPPLY) Medtronic Medtronic 1 [id number] 186978 035946 5 Dexterity 5Fr JL 4.0 catheter (NO COST SUPPLY) Medtronic Medtronic 2 [id number] 864255 106774 5 Dexterity 5Fr 3DRC catheter (NO COST SUPPLY) DIAGNOSTIC Cardinal 1 [id number] 690554 847756 527669 20 AR2 MOD 5 Health Fr catheter (082284W) SHEATH 6FR Terumo 1 CAU800 713972 340368 830330 40 [place] (ART883) EXOSEAL 6Fr Cardinal 1 EX600 496289 909674 364215 10 (EX600) Health Signature Audit [place] Stage Time Signature Unsigned Intra-Procedure 10/12/2018 Sherlyn 10:20:02 AM Counts RT(R) Signatures Monitor : Sherlyn Signature : Counts RT Date : Time : [address] [address]
--- NOTE | ~2018-10-12 | OP ---
PATIENT NAME: ANU RAM MEDICAL RECORD: [id number] :41 LOCATION:D.CAT ADMISSION DATE: SURGEON: PADMINI HUGHES MD DATE OF OPERATION: 10/12/2018 PROCEDURES: 1. Left heart catheterization. 2. Selective coronary angiography. 3. Left ventriculogram. 4. Vein graft angiography. 5. ONTIVEROS angiography. INDICATION: Angina and coronary disease. PROCEDURE IN DETAIL: After informed consent was obtained with detailed explanation of risks and benefits as well as alternative therapies, the patient elected to proceed with angiogram and angioplasty. The right femoral area was prepped and draped in normal sterile fashion. Right femoral artery was cannulated via modified Seldinger technique with placement of 6-[place] sheath. All catheters were exchanged through the sheath. FINDINGS: Left ventriculogram was performed in standard 30-degree [place] view, reveals good cardiac wall motion throughout all segments. Overall ejection fraction estimated at 60%. SELECTIVE CORONARY ANGIOGRAPHY: 1. Left main is closed. 2. Right coronary has previously placed stents and these are widely patent. Distal right coronary is severely diffusely diseased, but unchanged from previous angiography. 3. ONTIVEROS to the LAD is widely patent. Distal LAD is widely patent. 4. Vein graft, in a skipped fashion, OM1 and OM2 are widely patent. OVERALL IMPRESSION: Wide patency of all grafts on the left with wide patency of the stents on the right. Continue medical management of coronary artery disease and cardiac risk factors. TRANSINT:[id number] Voice Confirmation ID: [id number] DOCUMENT ID: [id number] PADMINI HUGHES MD at 1704 CC: [id number] DICTATION DATE: 10/12/18 1019 MACHINE QUILT STUFFER: 10/12/18 1050 DEP CLI 10/12/18 [place] [address]
[2018-10-12] MEDS ORDERED: ISOSORBIDE MONO60 M1 PO (08:34)
[2018-10-12] MEDS ORDERED: BAYER CHEWABLE81 MG PO (08:35)
[2018-10-12 08:45] VITALS: BP 136/70; Ht 180.3 cm; Wt 81.8 kg
[2018-10-12 09:03] LABS: ANION GAP 11.2 mmol/L (8-16); CALCIUM 9.2 mg/dL (8.5-10.1); CARBON DIOXIDE 27.8 mmol/L (21.0-32.0); CREATININE - SERUM 1.1 mg/dL (0.6-1.3)
[2018-10-12 09:32] LABS: BASOPHILS 0.7 % (0-2); EOSINOPHILS 5.1 % (0-7); HEMATOCRIT 35.1 % (42.0-54.0); HEMOGLOBIN 11.7 g/dL (13.5-17.5); IMMATURE GRANULOCYTES 0.2 % (0-5); LYMPHOCYTES 35.4 % (15-50); MCH 30.9 pg (26.0-34.0); MCHC 33.3 g/dL (31.0-37.0); MCV 92.6 fL (80.0-100.0); MEAN PLATELET VOLUME 9.5 fL (7.4-10.4); MONOCYTES 10.4 % (2-11); NEUTROPHILS 48.2 % (40-80); PLATELET COUNT 281 10x3/uL (130-400); RBC 3.79 10x6/uL (4.20-6.10); RDW 14.3 % (11.5-14.5); WBC 4.3 10x3/uL (4.8-10.8)
== END 2018-10-12 13:12 | disposition home or self-care (01) ==
LOC: D.CATH 08:20
PROVIDERS: Internal Medicine Interventional Cardiology
DX: I25.119 Atherosclerotic heart disease of native coronary artery with unspecified angina pectoris (principal); Z95.1 Presence of aortocoronary bypass graft

== ENCOUNTER → 2019-03-10 13:51 | Outpatient (CLI) | payer MEDICARE, BC ==
[2018-10-12 08:45] VITALS: BMI 25.1
== END | disposition home or self-care (01) ==
LOC: D.RT 13:30
PROVIDERS: ATTEND Internal Medicine Pulmonary Disease
DX: J44.9 Chronic obstructive pulmonary disease, unspecified (principal)

== ENCOUNTER 2019-03-29 05:24 | Day surgery (SDC) | payer MEDICARE, BC ==
[~2019-03-29] VITALS: Ht 170.2 cm; Wt 83.6 kg
[2019-03-29 05:33] LABS: HEMATOCRIT 35.6 % (42.0-54.0); HEMOGLOBIN 11.8 g/dL (13.5-17.5); MCH 30.4 pg (26.0-34.0); MCHC 33.1 g/dL (31.0-37.0); MCV 91.8 fL (80.0-100.0); MEAN PLATELET VOLUME 8.9 fL (7.4-10.4); RBC 3.88 10x6/uL (4.20-6.10); RDW 14.9 % (11.5-14.5); WBC 4.5 10x3/uL (4.8-10.8)
[2019-03-29 05:41] LABS: ANION GAP 11.9 mmol/L (8-16); CALCIUM 9.3 mg/dL (8.5-10.1); CARBON DIOXIDE 28.2 mmol/L (21.0-32.0); CREATININE - SERUM 1.4 mg/dL (0.6-1.3); POTASSIUM - SERUM 4.1 mmol/L (3.5-5.1)
[2019-03-29] MEDS ORDERED: ZETIA10 MG PO (06:23)
[2019-03-29 06:25] VITALS: Ht 170.2 cm; Wt 83.6 kg
--- NOTE | 2019-03-29 09:10 | NUR ---
PT DC INSTRUCTIONS REVIEWED AT THIS TIME, PT VERBALIZES UNDERSTANDING AND AGREES. PT IV REMOVED AT THIS TIME, INTACT, NO REDNESS OR SWELLING NOTED AT SITE.
--- NOTE | 2019-03-29 09:13 | NUR ---
PT LEAVING OPS SURGERY AT THIS TIME VIA WC.
--- NOTE | 2019-03-29 16:06 | OP ---
PATIENT NAME: ANU RAM MEDICAL RECORD: [id number] :41 [facility] DATE: SURGEON: LOYD DIAZ DO DATE OF OPERATION: 03/29/2019 PROCEDURE: EGD with biopsies and balloon dilation. INDICATIONS FOR PROCEDURE: Dysphagia. SCOPE: Olympus video gastroscope. MEDICATIONS: Propofol 80 mg IV per anesthesia. ESTIMATED BLOOD LOSS: Minimal. COMPLICATIONS: None. FINDINGS: Informed consent was given. The patient was made comfortable with the above medication. After reaching an adequate level of sedation by slow IV push, the patient was placed on his left side. The endoscope was advanced under direct visualization through the mouth to the second portion of the duodenum with ease. The upper, middle, and lower thirds of the esophagus appeared normal. At the GE junction, there was some mild stenosis evidence of LA class A reflux-induced esophagitis. Cold forceps biopsies were taken from the site and a 16-18 mm dilating CRE balloon was placed through the working channel of the endoscope across the stenosed site. The balloon was inflated up to a maximum diameter of 18 mm. The endoscope was then advanced into the stomach and retroflexed to view the cardia and fundus, which appeared normal. The body of the stomach, antrum, and prepyloric regions all appeared normal as well. Random cold forceps biopsies were taken from the antrum and incisura to submit for histopathology and to rule out the presence of H. pylori. The endoscope was advanced beyond the pylorus into the duodenum which appeared normal to the second portion. The endoscope was then withdrawn from the patient. The patient tolerated the procedure well and there were no complications. IMPRESSION: 1. LA class A reflux-induced esophagitis. 2. Mild esophageal stenosis at the GE junction, status post dilation to 18 mm. PLAN AND RECOMMENDATIONS: 1. Discharge home when recovery parameters are met. 2. Follow up biopsy specimen results. 3. GERD diet and reflux precautions. 4. Continue current medications. 5. We will provide prescription for famotidine 20 mg p.o. daily. 6. Follow up in GI clinic as needed and notify GI clinic if symptoms worsen or fail to improve. 7. Repeat EGD as needed for dysphagia. TRANSINT:[id number] Voice Confirmation ID: [id number] DOCUMENT ID: [id number] OPERATIVE REPORT [id number] ANU RAM LODY DIAZ DO at 1606 CC: [id number] DICTATION DATE: 03/29/19 0826 SUPERVISOR COLOR PASTE MIXING: 03/29/19 1156 [facility] 03/29/19 [place] [address] [place] [address]
== END 2019-03-29 09:13 | disposition home or self-care (01) ==
LOC: D.OPS 05:24
PROVIDERS: Anesthesiology; ATTEND Internal Medicine Gastroenterology
DX: K21.0 Gastro-esophageal reflux disease with esophagitis (principal); K22.2 Esophageal obstruction; Z01.812 Encounter for preprocedural laboratory examination

== ENCOUNTER → 2019-06-03 12:50 | Outpatient (CLI) | payer MEDICARE, BC ==
[2019-03-29 06:25] VITALS: BMI 28.9
[~2019-06-03 12:50] MED LIST changes: +ZETIA10 MG PO
== END | disposition home or self-care (01) ==
LOC: D.RT 12:50
PROVIDERS: ATTEND Internal Medicine Pulmonary Disease
DX: J44.9 Chronic obstructive pulmonary disease, unspecified (principal)

== ENCOUNTER 2019-09-08 08:22 | Outpatient (CLI) | payer MEDICARE, BC ==
[~2019-09-08] VITALS: Ht 177.8 cm; Wt 84.1 kg
--- NOTE | ~2019-09-08 | HEMODYNAMI ---
PATIENT:ANU RAM MEDICAL RECORD: [id number] : 41 LOCATION:D.CAT ADMISSION DATE: 09/08/19 Generatedon:09/08/201911:13 Patient name: ANU RAM Patient #: [id number] SSN: [id number] : 1945 Date of study: 09/08/2019 Page: Of Hemodynamic Procedure Report Patient Data Patient Demographics Procedure consent was obtained First Name: ANU Gender: Male Last Name: LEANNA : 1945 [facility] Initial: CINDY Age: 73 year(s) Patient #: [id number] Race: SSN: [id number] Additional ID: [id number] Contact details Address: [address] [place] [address] State: [place] City: [place] Zip code: [address] Past Medical History Allergies Allergen Reaction Date Comments Reported Other 12/29/2015 LIPITOR,PRAVACHOL,STATINS,PLAVIX allergy Other 12/29/2017 plavix, red yeast rice allergy Statins 12/29/2017 Other 10/12/2018 plavix, red yeast rice allergy Statins 10/12/2018 Other 09/08/2019 ANY STATINS/CLOPIDOGREL allergy BISULFATE(FROM PLAVIX)RED RICE YEAST Admission Admission Data Admission Date: 09/08/2019 Admission Time: 8:22 Arrival Date: 09/08/2019 Arrival Time: 0:00 Insurance Payor: Medicare [facility] #: [id number] Height (in.): 70.08 BSA: 2.02 (m2) Height (cm.): 178 BMI: 26.51 (kg/m2) Weight (lbs.): 185.19 Weight (kg.): 84 Lab Results Lab Result Date: 09/08/2019 Lab Result Time: 0:00 Biochemistry Name Units Result Min Max BUN mg/dl 27 --(----)-* 7 18 Creatinine mg/dl 1.1 --(--*-)-- 0.6 1.3 eGFR ml/min 69 *-(----)-- 90 120 NONAFRICAN CBC Name Units Result Min Max Hemoglobin g/dl 11.5 *-(----)-- 13.5 17.5 Procedure Procedure Types Cath Procedure Diagnostic Procedure [facility] w/Coronaries w/Grafts Sedation Charges Moderate Sedation up to 15 minutes Procedure Description Procedure Date Procedure Date: 09/08/2019 Procedure Start Time: 10:41 Procedure End Time: 11:11 Procedure Staff Name Function Juanjo Aguirre MD Performing Physician Patito Quijano RT Monitor Tracie Mitchell RT Monitor Negra Bearden RT Scrub Coral Garner RN Nurse Indication Chest pain Procedure Data Cath Procedure Fluoroscopy Diagnostic fluoroscopy Total fluoroscopy Time: 0 time: 0 min min Diagnostic fluoroscopy Total fluoroscopy dose: 705 dose: 705 mGy mGy Contrast Material Contrast Material Type Amount (ml) Isovue 300 104 Entry Location Entry Primary Successful Side Size Upsize 1 Upsize Entry Closure Martinez ccessful Closure Location (Fr) (Fr) 2 (Fr) Remarks Device Remarks Femoral Right 5 Fr 6 Fr Exoseal artery Mid-Length Estimated blood loss: 5 ml Diagnostic catheters Device Type Used For End Catheter Placement MULTIPACK Pigtail 5 Fr LV Angiography catheter MULTIPACK JL 4.0 5Fr Left Coronary catheter Angiography MULTIPACK 3DRC 5Fr Procedure catheter MULTIPACK 3DRC 5Fr Procedure catheter Procedure Complications No complications Procedure Medications Medication Administration Route Dosage Oxygen etCO2 Nasal cannula 2 l/min Lidocaine 2% added to field 20 Heparin Flush Bag added to field 2 bags (1000units/500ml NS) 0.9% NaCl I.V. 100 ml/hr Versed I.V. 2 mg Fentanyl I.V. 50 mcg Versed I.V. 2 mg Fentanyl I.V. 50 mcg Versed I.V. 0.5 mg Hemodynamics Rest BSA: 2.02 (m2) HGB: 11.5 (g/dl) O2 Consumption: Estimated: 230.5 (ml/min) O2 Con sumption indexed: Estimated:114.11 (ml/min/m) Heart Rate: 68 (bpm) Snapshots Pre Cath Intra NCS Post Cath Vital Signs Time Heart Resp SPO2 etCO2 NIBP (mmHg) Rhythm Pain Sedation Rate (ipm) (%) (mmHg) Status Level (bpm) 10:17:27 66 19 93 21.8 139/82(117) NSR 0 (11) 10(A) , No pain 10:21:45 69 27 93 14.3 134/81(109) NSR 0 (11) 10(A) , No pain 10:26:01 72 19 97 28.6 127/80(98) NSR 0 (11) 10(A) , No pain 10:30:19 82 31 97 1.5 142/67(114) NSR 0 (11) 10(A) , No pain 10:34:41 73 17 96 9.7 130/65(99) NSR 0 (11) 10(A) , No pain 10:38:57 71 19 96 9.7 121/66(95) NSR 0 (11) 10(A) , No pain 10:43:14 68 16 98 24.8 129/64(119) NSR 0 (11) 10(A) , No pain 10:47:32 72 18 95 18.8 118/63(93) NSR 0 (11) 9(A) , No pain 10:51:47 67 17 96 17.3 117/60(97) NSR 0 (11) 9(A) , No pain 10:56:03 80 18 95 13.5 97/53(73) NSR 0 (11) 9(A) , No pain 11:00:11 68 18 96 9.7 117/61(94) NSR 0 (11) 9(A) , No pain 11:04:25 67 18 96 9 121/68(96) NSR 0 (11) 10(A) , No pain 11:08:37 70 22 96 17.3 129/73(109) NSR 0 (11) 10(A) , No pain Medications Time Medication Route Dose Verified Delivered Reason Notes Eff ectiveness by by 10:37:59 Oxygen etCO2 2 Juanjo Moncada used for Nasal l/min Timothy Garner RN procedure cannula 10:38:06 Lidocaine 2% added 20ml Juanjo Geiger for local to vial Timothy Aguirre MD anesthetic field 10:38:13 Heparin Flush added 2 Juanjo Geiger used for Bag to bags Timothy Aguirre MD procedure (1000units/500ml field NS) 10:38:23 0.9% NaCl I.V. 100 Juanjodionne Moncada Per ml/hr Timothy Garner RN physician 10:39:01 Versed I.V. 2 mg Juanjo Moncada for Timothy Garner RN sedation 10:39:07 Fentanyl I.V. 50 Juanjo Moncada for mcg Timothy Garner RN sedation 10:45:11 Versed I.V. 2 mg Juanjo Moncada for Timothy Garner RN sedation 10:45:36 Fentanyl I.V. 50 Juanjo Cespedesie for mcg Timothy Garner RN sedation 10:51:09 Versed I.V. 0.5 Juanjo Moncada for mg Timothy Garner RN sedation Procedure Log Time Note 9:56:54 Informed consent obtained and on chart 9:57:02 Diagnostic Cath Status : Elective 9:58:29 Indication : Chest pain 9:58:59 ACC Patient presents with Stable Angina CCS Anginal Class 3--Marked limitation of physical activity, angina occurs with ordinary activity.. 9:59:52 ACCPatient has been prescribed/administered the following anti-anginal medication within the last 2 weeks: Long-Acting Nitrates 9:59:57 Procedure Status Elective Heart Cath (OP). 10:00:00 Patito Quijano RT(R) sent for patient. Start room use. 10:00:04 Time tracking: Regular hours (M-F 7:00 - 5:00) 10:00:10 Plan of Care:Hemodynamics will remain stable., Cardiac rhythm will remain stable., Comfort level will be maintained., Respiratory function will remain adequate., Patient/ family verbilizes understanding of procedure., Procedure tolerated without complication., Recovers from procedure without complications.. 10:01:22 Arrival Date: 09/08/2019 12:00:00 AM 10:02:55 Insurance Payor : Medicare 10:02:59 Patient Height : 70.08 inches 10:03:10 Patient Weight : 185.19 lbs 10:05:19 Lab Result : eGFR NONAFRICAN 69 ml/min 10:05:19 Lab Result : Creatinine 1.1 mg/dl 10:05:19 Lab Result : BUN 27 mg/dl 10:05:19 Lab Result : Hemoglobin 11.5 g/dl 10:08:51 Risk of Mortality: 1.8 10:08:57 Risk of blood transfusion: 8.9 10:09:09 Risk of MICHAELLE: 13.9 10:10:05 Patient received from Pre/Post Procedure Room to [facility] 1 Alert and oriented. Tansferred to table in Supine position. 10:10:09 Warm blankets applied, and brad hugger turned on for patient comfort. 10:10:10 Correct patient and procedure confirmed by team. 10:11:44 H&P Date Dictated: 09/08/2019 H&P Addendum completed by physician on day of procedure. (MUST COMPLETE FOR ALL OUTPATIENTS), New H&P dictated by physician.. 10:11:46 Pre-procedure instructions explained to patient. 10:11:47 Pre-op teaching completed and patient verbalized understanding. 10:11:51 Family in patients room. 10:11:54 Patient NPO since Midnight. 10:13:16 Patient allergic to Other allergyANY STATINS/CLOPIDOGREL BISULFATE(FROM PLAVIX)RED RICE YEAST 10:13:27 Is the patient allergic to Iodine/contrast media? No. 10:13:29 Was the patient premedicated? Yes 10:13:33 Is patient on blood thinner?Yes 10:13:38 ACC The patient was administered the following blood thiners within the last 24 hours: ACCEffient 10:13:43 Patient diabetic? Yes. 10:14:58 If diabetic: On Metformin? Yes 10:15:06 ----Pre-sedation anethsthesia assessment.---- 10:15:11 Previous problem with sedation/anesthesia? No ? 10:15:13 Snore? Yes 10:15:16 Sleep apnea? No 10:15:18 Deviated septum? No 10:15:20 Opens mouth fully? Yes 10:15:21 Sticks out tongue? Yes 10:15:45 Airway obstruction? Yes COPD/ WEARS O2 AT NIGHT 10:15:52 Dentures? Yes IN TIGHT 10:16:15 ECG and BP/O2 sat monitors applied to patient. 10:16:16 Vital chart was started 10:16:17 Baseline sample Acquired. 10:16:23 Rhythm: sinus rhythm 10:16:54 Lab results completed and on chart. 10:16:59 Pre procedure: right dorsailis pedis pulse 1+ Palpable, but thready & weak; easily obliterated 10:17:04 Patient pain scale 0/10 ?. 10:17:11 IV patent on arrival in left forearm with 0.9% NaCl at [facility]. 10:17:28 Right groin area was prepped with chlora-prep and draped in sterile fashion 10:17:30 Alarms reviewed by R. N. 10:17:31 Sharps counted by scrub and verified by R.N. 10:24:08 Zero performed for pressure channel P1 10:34:22 Zero performed for pressure channel P1 10:36:30 Use device set Femoral Dx 10:36:32 ACIST Syringe (02390) opened to sterile field. 10:36:33 Bag Decanter (2002S) opened to sterile field. 10:36:34 Medline Cath Pack ([id number]) opened to sterile field. 10:36:36 ACIST Hand Control (71990) opened to sterile field. 10:36:37 ACIST Manifold (62513) opened to sterile field. 10:36:38 DIAGNOSTIC Multipack 5Fr catheter set (OL8806) opened to sterile field. 10:36:39 Tegaderm 4 x 4 (1626W) opened to sterile field. 10:36:41 SHEATH 5FR Davis (QHN537) opened to sterile field. 10:36:42 EMERALD Guide Wire (088-325) opened to sterile field. 10:37:59 Oxygen 2 l/min etCO2 Nasal cannula was administered by Coral Garner RN; used for procedure; Verbal order read back and verified. 10:38:06 Lidocaine 2% 20ml vial added to field was administered by Juanjo Aguirre MD; for local anesthetic; Verbal order read back and verified. 10:38:13 Heparin Flush Bag (1000units/500ml NS) 2 bags added to field was administered by Juanjo Aguirre MD; used for procedure; Verbal order read back and verified. 10:38:22 --------ALL STOP TIME OUT------ 10:38:22 Final Timeout: patient, procedure, and site verified with staff and physician. All members of the team are in agreement. 10:38:23 0.9% NaCl 100 ml/hr I.V. was administered by Coral Garner RN; Per physician; Verbal order read back and verified. 10:38:24 Right groin site verified by team. 10:38:27 Fire Safety Assessment: A--An alcohol-based skin anteseptic being used preoperatively., C--Open oxygen or nitrous oxide is being used., D--An ESU, laser, or fiber-optic light is being used. 10:38:30 Physical assessment completed. ASA score P 2 - A patient with mild systemic disease as per Juanjo Aguirre MD. 10:38:33 2) 60-89 Mildly reduced kidney function, and other findings (as for stage 1) point to kidney disease. 10:38:37 Maximum allowable contrast dose (3.7 X eGFR X 0.75)191 ml. 10:38:42 Sedation plan: IV Moderate Sedation Medication:Versed, Fentanyl 10:39:01 Versed 2 mg I.V. was administered by Coral Garner RN; for sedation; Verbal order read back and verified. 10:39:07 Fentanyl 50 mcg I.V. was administered by Coral Garner RN; for sedation; Verbal order read back and verified. 10:41:53 Procedure started. 10:41:53 Full Disclosure recording started 10:41:59 Local anesthetic to right femoral artery with Lidocaine 2% by Juanjo Aguirre MD.INITIAL ACCESS ONLY 10:43:15 A 5 Fr sheath was inserted into the Right Femoral artery 10:43:40 A MULTIPACK Pigtail 5 Fr catheter was advanced over the wire and used for LV Angiography. 10:43:46 LV gram done using [place] 10:43:55 Injector settings: Ml/sec: 10, Volume: 20, 10:44:19 EF : 35 % 10:44:27 Catheter removed. 10:44:34 A MULTIPACK JL 4.0 5Fr catheter was advanced over the wire and used for Left Coronary Angiography. 10:45:11 Versed 2 mg I.V. was administered by Coral Garner RN; for sedation; Verbal order read back and verified. 10:45:15 LCA angiography performed. 10:45:22 Catheter removed. 10:45:36 Fentanyl 50 mcg I.V. was administered by Coral Garner RN; for sedation; Verbal order read back and verified. 10:45:40 A MULTIPACK 3DRC 5Fr catheter was advanced over the wire and used for Procedure. 10:47:01 ONTIVEROS to LAD angiography performed. 10:47:26 SHEATH 6FR Destination (RSR01) opened to sterile field. 10:47:38 Catheter exchanged over wire. 10:47:55 Sheath upsized to a 6 Fr Mid-Length. 10:49:02 A MULTIPACK 3DRC 5Fr catheter was advanced over the wire and used for Procedure. 10:50:39 RCA angiography performed. 10:51:09 Versed 0.5 mg I.V. was administered by Coral Garner RN; for sedation; Verbal order read back and verified. 10:52:18 SVG to OM angiography performed. 10:52:23 Catheter removed. 10:53:15 GLIDE WIRE ANGLE 260cm (EE7136) opened to sterile field. 10:53:27 INFLATOR Merit BasixCompak (VD8023) opened to sterile field. 10:53:29 CHOICE PT Extra Support 182cm wire (1006346D3) opened to sterile field. 10:53:48 GUIDE 6FR RIDDHI 90 catheter (YE0HTXH) opened to sterile field. 10:54:06 6 Fr RIDDHI 90 CM guide catheter was inserted over the wire 10:54:27 GLIDEWIRE [facility] R[facility]ATH. 10:56:10 TORQUE DEVICE PLASTIC .038 ( TD01) opened to sterile field. 10:58:12 GLIDE WIRE Super Stiff Angled 260cm (SK6856) opened to sterile field. 10:58:57 SUPER STIFF GLIDE 260 USED TO ADVANCE wire. 11:00:41 GLIDEWIRE REMOVED. 11:00:55 CHOICE PT 300 wire advanced. 11:02:56 UNABLE TO ADVANCE AND CROSS LESION. 11:03:01 Wire removed. 11:03:02 Guide catheter removed. 11:03:15 SHEATH 6FR Davis (DGZ570) opened to sterile field. 11:03:26 EXOSEAL 6Fr (EX600) opened to sterile field. 11:04:05 THE DESTINATION IS REPLACED BY THE 6FRENCH SHORT PINNICLE SHEATH. 11:04:21 Sheath removed intact; hemostasis achieved with Exoseal to the Right Femoral artery. 11:04:24 Procedure ended.(Physican Out) 11:04:45 Contrast amount:Isovue 300 104ml. 11:04:54 Fluoroscopy time 00.00 minutes. 11:05:00 Flurop Dose total: 705 11:05:00 Fluoroscopy dose: 705 mGy 11:05:07 Dose Area Product 40276 mGy/cm. 11:05:13 Maximum allowable dose exceeded? No. 11:05:15 Sharps counted by scrub and verified by R.N. 11:05:19 Insertion/operative site no bleeding no hematoma. 11:05:25 Post-op/insertion site Right Femoral artery dressed using a 4 x 4 and Tegaderm. 11:05:32 Post right femoral artery:stable 11:05:43 Post Procedure Pulses reassessed and unchanged 11:05:51 Post-procedure physical assessment completed. ASA score P 2 - A patient with mild systemic disease as per Juanjo Aguirre MD. 11:05:57 Post procedure rhythm: unchanged. 11:06:04 Estimated blood loss: 5 ml 11:06:21 Post procedure instruction explained to patient.Patient verbalizes understanding. 11:06:22 Patient needs reinforcement of post procedure teaching. 11:07:51 Procedure type changed to Cath procedure, Diagnostic procedure, LHC, LHC w/Coronaries w/Grafts, Sedation Charges, Moderate Sedation up to 15 minutes 11:07:54 Procedure and supply charges have been captured, reviewed, submitted and are correct. 11:11:17 Procedure Complication : No complications 11:11:22 Vital chart was stopped 11:11:32 [facility] Findings: MVD- MD will discuss options w/ pt 11:11:37 Operative report dictated upon procedure completion. 11:11:38 See physician's report for complete and final results. 11:11:46 Report given to Pre/Post Procedure Room. 11:11:51 Patient transfered to Pre/Post Procedure Room with Stretcher. 11:11:54 Procedure ended. 11:11:54 Full Disclosure recording stopped 11:12:01 End room use (Document Last) Device Usage Item Name Manufacture Quantity Catalog Number Hospital Part Current Minim al Lot# / Charge Number Stock Stock Serial# Code ACIST Acist 1 10987 013668 310247 466319 20 Syringe Medical (70030) Systems Inc Bag Microtek 1 101029 95104 800444 5 Decanter Medical Inc. () Medline Medline 1 [id number] 385309 38084 560879 5 Cath Pack ([id number]) ACIST Hand Acist 1 98788 372583 911255 440668 5 Control Medical (75085) Systems Inc ACIST Acist 1 46922 222596 457979 327482 5 Manifold Medical (93202) Systems Inc DIAGNOSTIC Cardinal 1 GJ0766 927967 43770 436433 30 Multipack Helios [employer] Learning 5Fr catheter set (JG6503) Tegaderm 4 3M 1 1626W 015259 884404 246936 5 x 4 (1626W) SHEATH 5FR Terumo 1 JUS303 111318 291399 093450 5 Davis (SJI343) EMERALD Cardinal 1 502-455 563820 255339 161008 5 Guide Wire Health (502-455) MULTIPACK Cardinal 1 552341 5 Pigtail 5 Health Fr catheter MULTIPACK Cardinal 1 667547 5 JL 4.0 5Fr Health catheter MULTIPACK Cardinal 1 270629 5 3DRC 5Fr Health catheter SHEATH 6FR Terumo 1 RSR01 616572 61053 843686 5 Destination (RSR01) GLIDE WIRE Terumo 1 HQ4269 650125 788670 628108 5 ANGLE 260cm (ST0530) INFLATOR [facility] 1 EA8434 022102 768604 561182 15 [facility] BasixCompak (ID4201) CHOICE PT Lynn 1 [id number] 093410 207840 306356 5 Extra Scientific Support 182cm wire ([id number]) GUIDE 6FR Medtronic 1 [id number] 981043 10800 835431 1 RIDDHI 90 catheter (EQ6LNQX) TORQUE Lynn 1 TD01 762690 271089 913395 5 DEVICE Scientific PLASTIC .038 ( TD01) GLIDE WIRE Terumo 1 IS9905 597866 773773 713279 5 Super Stiff Angled 260cm (RM4988) SHEATH 6FR Terumo 1 VFH574 033792 689971 194817 40 Davis (UVK016) EXOSEAL 6Fr Cardinal 1 EX600 940066 389578 464294 10 (EX600) Health Signature Audit [place] Stage Time Signature Unsigned Intra-Procedure 09/08/2019 Tracie 11:12:32 AM Stephen RT(R) (CV) Intra-Procedure 09/08/2019 Coral Garner RN 11:13:04 AM Intra-Procedure 09/08/2019 Juanjo Aguirre 11:13:31 AM [facility] [address] [facility], [place] [address]
[2019-09-08] MEDS ORDERED: CIMZIA400 MG/2 M SQ (08:57)
[2019-09-08] MEDS ORDERED: LANTUS SOL100 UNIT/1 SC (08:57)
[2019-09-08] MEDS ORDERED: HUMALOG 30100 UNITS/ SC (08:59)
[2019-09-08] MEDS ORDERED: SULFAZINE EC500 MG PO (08:59)
[2019-09-08] MEDS ORDERED: GLUCOPHAGE1000 MG PO (08:59)
[2019-09-08] MEDS ORDERED: ISOSORBIDE MONO60 M1 PO (09:00)
[2019-09-08] MEDS ORDERED: GLIPIZIDE10 MG PO (09:00)
[2019-09-08] MEDS ORDERED: STERAPRED 5MG 125 MG PO (09:01)
[2019-09-08] MEDS ORDERED: DILTIAZEM 24HR120 M3 PO (09:02)
[2019-09-08] MEDS ORDERED: FUROSEMIDE40 MG PO (09:02)
[2019-09-08] MEDS ORDERED: TRICOR145 MG PO (09:02)
[2019-09-08] MEDS ORDERED: ZETIA10 MG PO (09:03)
[2019-09-08] MEDS ORDERED: MAG-OX 400 MG400 MG PO (09:05)
[2019-09-08] MEDS ORDERED: BAYER CHEWABLE81 MG PO (09:06)
[2019-09-08] MEDS ORDERED: FISH OIL 1,0001 CA1 PO (09:06)
[2019-09-08] MEDS ORDERED: MULTI-DAY VITAM1 TAB PO (09:07)
[2019-09-08 09:09] VITALS: BP 138/66; Ht 177.8 cm; Wt 84.1 kg
[2019-09-08 09:22] LABS: BASOPHILS 0.4 % (0-2); EOSINOPHILS 3.7 % (0-7); HEMATOCRIT 35.5 % (42.0-54.0); HEMOGLOBIN 11.5 g/dL (13.5-17.5); IMMATURE GRANULOCYTES 0.4 % (0-5); LYMPHOCYTES 20.8 % (15-50); MCH 31.1 pg (26.0-34.0); MCHC 32.4 g/dL (31.0-37.0); MCV 95.9 fL (80.0-100.0); MONOCYTES 7.8 % (2-11); NEUTROPHILS 66.9 % (40-80); PLATELET COUNT 269 10x3/uL (130-400); WBC 5.1 10x3/uL (4.8-10.8)
[2019-09-08 09:34] LABS: ANION GAP 10.2 mmol/L (8-16); CALCIUM 9.4 mg/dL (8.5-10.1); CREATININE - SERUM 1.1 mg/dL (0.6-1.3); POTASSIUM - SERUM 4.2 mmol/L (3.5-5.1)
[2019-09-08 09:46] LABS: CHOL - HDL RATIO 4.6 ratio (2.3-4.9); LDL-HDL RATIO 3.1 ratio (1.5-3.5)
--- NOTE | 2019-09-08 11:20 | NUR ---
PATIENT ARRIVED TO ROOM 7, PLACED ON CM. VSS ON 2L NC. RIGHT GROIN DRESSING IS CDI, NO S/S OF BLEEDING OR HEMATOMA.
--- NOTE | 2019-09-08 11:35 | NUR ---
PATIENT RESTING, SPOUSE PRESENT AT BEDSIDE. VSS ON 2L NC. RIGHT GROIN DRESSING IS CDI, NO S/S OF BLEEDING OR HEMTOMAT. NO C/O PAIN, NUMBNESS, OR TINGLING.
--- NOTE | 2019-09-08 12:05 | NUR ---
PATIENT RESTING, SPOUSE PRESENT AT BEDSIDE. VSS ON 2L NC. RIGHT GROIN DRESSING IS CDI, NO S/S OF BLEEDING OR HEMATOMA. NO C/O PAIN, NUMBNESS, OR TINGLING. NO N/V.
--- NOTE | 2019-09-08 12:35 | NUR ---
PATIENT AWAKE, VSS ON 2L NC. RIGHT GROIN DRESSING IS CDI, NO S/S OF BLEEDING OR HEMATOMA. NO C/O PAIN, NUMBNESS, OR TINGLING. NO N/V.
--- NOTE | 2019-09-08 13:05 | NUR ---
HEAD OF BED ELEVATED TO 30 DEGREES. RIGHT GROIN DRESSING IS CDI, NO S/S OF BLEEDING OR HEMATOMA. NO C/O PAIN, NUMBNESS, OR TINGLING. VSS ON ROOM AIR. TOLERATING PO FLUIDS AND FOOD, NO N/V.
--- NOTE | 2019-09-08 13:35 | NUR ---
HEAD OF BED AT 90 DEGREES. RIGHT GROIN DRESSING IS CDI, NO S/S OF BLEEDING OR HEMATOMA. VSS ON ROOM AIR. NO N/V. NO C/O PAIN, NUMBNESS, OR TINGLING.
--- NOTE | 2019-09-08 13:50 | NUR ---
WRITTEN AND VERBAL DISCHARGE INSTRUCTIONS GIVEN TO PATIENT AND SPOUSE, BOTH VOICE UNDERSTANDING. IV REMOVED. PATIENT GETTING DRESSED.
--- NOTE | 2019-09-08 14:00 | NUR ---
PATIENT VOIDED WITHOUT DIFFICULTY. ACCOMPANIED TO CAR WITH ALL OF BELONGINGS.
--- NOTE | 2019-09-14 11:41 | OP ---
PATIENT NAME: ANU RAM MEDICAL RECORD: [id number] :41 LOCATION:D.CAT ADMISSION DATE: SURGEON: PADMINI HUGHES MD DATE OF OPERATION: 09/08/2019 DATE OF SERVICE: 09/08/2019 PROCEDURES: 1. Left heart catheterization. 2. Selective coronary angiography. 3. Left ventriculogram. 4. Vein graft angiography. 5. ONTIVEROS angiography. INDICATION: Angina and coronary artery disease. PROCEDURE IN DETAIL: After informed consent was obtained and after a detail description of risks, benefits as well as alternative therapies, the patient elected to proceed with angiogram and heart catheterization. The right femoral area was prepped and draped in normal sterile fashion. Right femoral artery was cannulated via modified Seldinger technique with placement of 6-Syriac sheath. All catheters exchanged through this sheath. FINDINGS: The left ventriculogram was performed in standard 30-degree [place] view, reveals global hypokinesis, ejection fraction 30% to 35%. SELECTIVE CORONARY ANGIOGRAPHY: 1. Left main is closed. 2. Right coronary has multiple previously placed stents. These are patent to the distal aspect, it is then closed; however, this is unchanged from previous angiography. 3. Vein graft to the circumflex in a skipped fashion OM1 and OM2 is patent. OM1 and OM2 are small, diffusely diseased. 4. ONTIVEROS to the LAD is patent. LAD appears to have at least 1-2 areas of 80% and 90% stenosis after the patent ONTIVEROS. The subclavian is very tortuous. The femorals are very tortuous. ATTEMPTED PTCA STENT OF THE LAD THROUGH THE ONTIVEROS: We could not engage the ONTIVEROS artery secondary to the catheter not being able to torque due to the tortuosity of the femorals, aorta and the subclavian. We placed a 645 sheath, this still precluded us from engaging the ONTIVEROS. Hence, this will have to be treated medically. OVERALL IMPRESSION: Significant disease of the distal right coronary artery with closure of this vessel, significant disease of the left anterior descending after the left internal mammary artery, but inability to engage the left internal mammary artery to perform intervention, hence, medical management. TRANSINT:[id number] Voice Confirmation ID: [id number] DOCUMENT ID: [id number] OPERATIVE REPORT [id number] ANU RAM PADMINI HUGHES MD at 1141 CC: [id number] DICTATION DATE: 09/08/19 1108 ECOMMERCE ANALYST: 09/08/19 1133 DEP CLI 09/08/19 [place] [id number] [facility] [address]
== END 2019-09-08 14:00 ==
LOC: D.CATH 08:22
PROVIDERS: ATTEND Internal Medicine Interventional Cardiology
DX: I25.119 Atherosclerotic heart disease of native coronary artery with unspecified angina pectoris (principal)

== ENCOUNTER 2020-04-19 05:51 | Emergency (ER) | payer MEDICARE, BC ==
[~2020-04-19] VITALS: Ht 177.8 cm; Wt 84.1 kg
[~2020-04-19 05:51] MED LIST changes: +CIMZIA400 MG/2 M SQ; +DILTIAZEM 24HR120 M3 PO; +FISH OIL 1,0001 CA1 PO; +FUROSEMIDE40 MG PO; +LANTUS SOL100 UNIT/1 SC; +MULTI-DAY VITAM1 TAB PO; +STERAPRED 5MG 125 MG PO; +SULFAZINE EC500 MG PO
[2020-04-19 06:00] VITALS: Ht 177.8 cm; Wt 84.1 kg
[2020-04-19 06:23] LABS: BASOPHILS 0.3 % (0-2); HEMOGLOBIN 12.5 g/dL (13.5-17.5); IMMATURE GRANULOCYTES 0.4 % (0-5); LYMPHOCYTES 15.9 % (15-50); MCH 30.6 pg (26.0-34.0); MCHC 32.9 g/dL (31.0-37.0); MCV 93.1 fL (80.0-100.0); MONOCYTES 9.4 % (2-11); PLATELET COUNT 294 10x3/uL (130-400); RBC 4.08 10x6/uL (4.20-6.10); RDW 15.3 % (11.5-14.5)
[2020-04-19 06:41] LABS: APTT 26.3 SECONDS (22.8-39.4); INR 1.02 (0.85-1.17); PROTIME 13.3 SECONDS (11.6-15.0)
[2020-04-19 07:25] LABS: CALC OSMOLALITY 277 mosm/kg (275-300); CALCIUM 8.9 mg/dL (8.5-10.1); CARBON DIOXIDE 24.2 mmol/L (21.0-32.0); CHLORIDE - SERUM 102 mmol/L (98-107); CREATININE - SERUM 1.2 mg/dL (0.6-1.3); POTASSIUM - SERUM 4.5 mmol/L (3.5-5.1); SODIUM 135 mmol/L (136-145); UREA NITROGEN 17 mg/dL (7-18); eGFR NON AFRICAN AMERICAN 63 mL/min (90-120)
[2020-04-19 07:26] LABS: GLUCOSE 210 mg/dL (74-106)
[2020-04-19 07:52] LABS: ALBUMIN 3.6 g/dL (3.4-5.0); ALKALINE PHOSPHATASE 33 U/L (30-120); ALT (SGPT) 22 U/L (10-68); BILIRUBIN - TOTAL 0.28 mg/dL (0.2-1.3); CKMB 1.5 U/L (0.0-3.6); CREATINE KINASE 111 UL (21-232); PRO BNP 1369 pg/mL (0-450); PROTEIN - SERUM 6.5 g/dL (6.4-8.2)
[2020-04-19 07:54] LABS: TROPONIN-I < 0.017 ng/mL (0.000-0.060)
[2020-04-19] MEDS ORDERED: HYDROCODON-ACE1 EAC7 PO (09:49)
[2020-04-19 10:07] VITALS: BP 151/64
== END 2020-04-19 10:09 | disposition home or self-care (01) ==
LOC: D.ER 05:51
PROVIDERS: Family Medicine
DX: M25.511 Pain in right shoulder (principal); J96.20 Acute and chronic respiratory failure, unspecified whether with hypoxia or hypercapnia; J44.1 Chronic obstructive pulmonary disease with (acute) exacerbation; I10 Essential (primary) hypertension; E11.40 Type 2 diabetes mellitus with diabetic neuropathy, unspecified; E07.9 Disorder of thyroid, unspecified; Z95.1 Presence of aortocoronary bypass graft; I48.91 Unspecified atrial fibrillation; Z99.81 Dependence on supplemental oxygen; Z79.84 Long term (current) use of oral hypoglycemic drugs

== ENCOUNTER → 2020-07-28 10:31 | Outpatient (CLI) | payer MEDICARE, BC ==
[2020-04-19 06:00] VITALS: BMI 26.6
[~2020-07-28 10:31] MED LIST changes: +HYDROCODON-ACE1 EAC7 PO
== END | disposition home or self-care (01) ==
LOC: D.LAB 10:31
PROVIDERS: ATTEND Internal Medicine Pulmonary Disease
DX: J43.9 Emphysema, unspecified (principal); Z13.9 Encounter for screening, unspecified

== ENCOUNTER → 2020-08-01 12:14 | Outpatient (CLI) | payer MEDICARE, BC ==
[2020-04-19 06:00] VITALS: BMI 26.6
== END | disposition home or self-care (01) ==
LOC: D.RT 12:14
PROVIDERS: ATTEND Internal Medicine Pulmonary Disease
DX: J43.9 Emphysema, unspecified (principal)

== ENCOUNTER 2021-01-18 08:40 | Inpatient (IN) | payer MEDICARE, BC ==
[~2021-01-18] VITALS: Ht 177.8 cm; Wt 83.1 kg
--- NOTE | ~2021-01-18 | HEMODYNAMI ---
PATIENT:ANU RAM MEDICAL RECORD: [id number] : 41 [facility] [address] [id number] ADMISSION DATE: 02/07/21 Generatedon:111:49 Patient name: ANU RAM Patient #: [id number] SSN: [id number] : 1945 Date of study: 02/07/2021 Page: Of Hemodynamic Procedure Report Patient Data Patient Demographics Procedure consent was obtained First Name: ANU Gender: Male Last Name: LEANNA : 1945 Middle Initial: CINDY Age: 75 year(s) Patient #: [id number] Race: SSN: [id number] Additional ID: [id number] Contact details Address: [address] [place] [address] State: [place] City: [place] Zip code: [address] Past Medical History Allergies Allergen Reaction Date Comments Reported Other 12/29/2015 LIPITOR,PRAVACHOL,STATINS,PLAVIX allergy Other 12/29/2017 plavix, red yeast rice allergy Statins 12/29/2017 Other 10/12/2018 plavix, red yeast rice allergy Statins 10/12/2018 Other 09/08/2019 ANY STATINS/CLOPIDOGREL allergy BISULFATE(FROM PLAVIX)RED RICE YEAST Admission Admission Data Admission Date: 02/07/2021 Admission Time: 6:11 Room #: [facility] Procedure Procedure Types Cath Procedure Peripheral Cath Diagnostic Procedure Miscellaneous Procedure Description Procedure Date Procedure Date: 02/07/2021 Procedure Start Time: 10:25 Procedure Staff Name Function Moose Trevizo MD Performing Physician CORINE YEPEZ RT Scrub Loc Quinonez RT Monitor Isela Pressley RN Nurse Lisa Gong RN Nurse Procedure Data Cath Procedure Fluoroscopy Diagnostic fluoroscopy Total fluoroscopy Time: time: 19.3 min 19.3 min Diagnostic fluoroscopy Total fluoroscopy dose: 651 dose: 651 mGy mGy Contrast Material Contrast Material Type Amount (ml) Isovue 300 70 Diagnostic catheters Device Type Used For End Catheter Placement Merit Susanna Telles 5FR. 100CM catheter ([id number]) Merit ULTRA BOLUS FLUSH 5Fr 90CM catheter ([id number]) Cook HN5 5F/100CM SVG Angiography catheter ([id number]) Procedure Medications Medication Administration Route Dosage Heparin Flush Bag added to field 4 bags (1000units/500ml NS) Lidocaine 1% added to field 20 Versed I.V. 0.5 mg Fentanyl I.V. 25 mcg Heparin Bolus I.V. 5000 units Heparin Bolus I.V. 2500 units Hemodynamics Rest Heart Rate: 73 (bpm) Snapshots Pre Cath Intra NCS Post Cath Vital Signs Time Heart Resp SPO2 etCO2 NIBP (mmHg) Rhythm Pain Sedation Rate (ipm) (%) (mmHg) Status Level (bpm) 10:14:49 74 16 97 0 120/62(91) NSR 0 (11) 10(A) , No pain 10:19:03 69 13 98 11.9 115/56(76) NSR 0 (11) 10(A) , No pain 10:23:13 70 17 99 14.9 117/65(87) NSR 0 (11) 10(A) , No pain 10:27:21 74 13 99 21.6 123/67(96) NSR 0 (11) 10(A) , No pain 10:31:34 73 20 96 26.2 115/58(84) NSR 0 (11) 9(A) , No pain 10:35:44 71 15 94 17.9 112/58(80) NSR 0 (11) 8(A) , No pain 10:39:54 71 15 97 18.7 112/58(89) NSR 0 (11) 8(A) , No pain 10:44:12 73 14 97 19.4 117/61(90) NSR 0 (11) 8(A) , No pain 10:48:22 72 24 97 14.9 117/62(94) NSR 0 (11) 8(A) , No pain 10:52:32 73 16 97 15.7 111/64(90) NSR 0 (11) 8(A) , No pain 10:56:38 74 13 97 14.2 113/66(85) NSR 0 (11) 8(A) , No pain 11:00:47 75 21 97 12.7 118/65(101) NSR 0 (11) 8(A) , No pain 11:04:55 72 14 97 14.2 123/69(83) NSR 0 (11) 8(A) , No pain 11:09:07 73 25 96 3.7 115/63(86) NSR 0 (11) 8(A) , No pain 11:13:16 72 8 97 10.4 115/63(90) NSR 0 (11) 8(A) , No pain 11:17:25 70 17 98 3.7 120/60(100) NSR 0 (11) 8(A) , No pain 11:21:35 70 25 96 3.7 113/62(86) NSR 0 (11) 8(A) , No pain 11:25:51 69 19 95 0 114/37(51) NSR 0 (11) 8(A) , No pain 11:27:01 67 15 98 1.4 108/58(86) NSR 0 (11) 8(A) , No pain 11:31:09 67 13 97 9.7 111/53(67) NSR 0 (11) 8(A) , No pain 11:35:19 62 13 96 13.4 104/56(70) NSR 0 (11) 8(A) , No pain 11:39:28 64 16 96 0 96/50(72) NSR 0 (11) 8(A) , No pain 11:43:34 66 25 96 8.9 100/52(73) NSR 0 (11) 8(A) , No pain 11:46:39 67 2 93 9.7 102/65(89) NSR 0 (11) 8(A) , No pain Medications Time Medication Route Dose Verified Delivered Reason Notes Effe ctiveness by by 10:27:25 Heparin Flush added 4 Moose Virk used for Bag to bags Joseline Trevizo procedure (1000units/500ml field MD CAMARENA NS) 10:27:41 Lidocaine 1% added 20ml Moose Virk for local to vial Joseline Trevizo anesthetic field MD CAMARENA 10:27:54 Versed I.V. 0.5 Moose Gonzalez for mg Joseline Gong sedation RN 10:28:06 Fentanyl I.V. 25 Moose Gonzalez for mcg Joseline Gong sedation RN 10:32:02 Heparin Bolus I.V. 5000 Moose Gonzalez Per units Joseline haywood MD RN 10:58:31 Heparin Bolus I.V. 2500 Moose Gonzalez Per units Joseline haywood MD oracle apex developer Log Time Note 9:55:33 Lisa Gong RN sent for patient. Start room use. 9:56:03 Time tracking: Regular hours (M-F 7:00 - 5:00) 9:56:07 Plan of Care:Hemodynamics will remain stable., Cardiac rhythm will remain stable., Comfort level will be maintained., Respiratory function will remain adequate., Patient/ family verbilizes understanding of procedure., Procedure tolerated without complication., Recovers from procedure without complications.. 9:56:12 Patient received from Outpatients to IR Alert and oriented. Tansferred to table in Supine position. 9:56:15 Signed procedure consent form obtained from patient. 9:56:16 Correct patient and procedure confirmed by team. 9:56:16 ECG and BP/O2 sat monitors applied to patient. 9:56:18 Full Disclosure recording started 9:56:18 - 9:56:20 Pre-procedure instructions explained to patient. 9:56:21 Pre-op teaching completed and patient verbalized understanding. 9:56:23 H&P Date Dictated: 02/07/2021 H&P Addendum completed by physician on day of procedure. (MUST COMPLETE FOR ALL OUTPATIENTS). 9:56:27 Family unavailable. 9:56:28 Patient NPO since Midnight. 9:56:34 Use device set IR Diagnostic 9:56:36 ACIST Syringe (45105) opened to sterile field. 9:56:36 ACIST Hand Control (71246) opened to sterile field. 9:56:37 ACIST Manifold (96439) opened to sterile field. 9:56:37 Bag Decanter () opened to sterile field. 9:56:38 Sterile Angiographic Pack opened to sterile field. 9:56:38 Tegaderm 4 x 4 (1626W) opened to sterile field. 10:01:41 Is patient on blood thinner?No 10:01:42 Patient diabetic? Yes. 10:01:48 If on Metformin: Last Dose? 02/05/2021 10:01:50 - 10:01:51 ----Pre-sedation anethsthesia assessment.---- 10:01:55 Previous problem with sedation/anesthesia? No ? 10:02:01 Snore? No 10:02:03 Sleep apnea? No 10:02:07 Deviated septum? No 10:02:13 Opens mouth fully? Yes 10:02:14 Sticks out tongue? Yes 10:02:17 Airway obstruction? No ? 10:02:18 Dentures? No ? 10:04:24 Pre procedure: right dorsailis pedis pulse Doppler 10:04:29 Pre procedure: right posterior tibial pulse Doppler 10:04:52 IV patent on arrival in left forearm with 0.9% NaCl at [facility]. 10:04:55 Sharps counted by scrub and verified by R.N. 10:04:55 Alarms reviewed by R. N. 10:04:58 Right groin area was prepped with chlora-prep and draped in sterile fashion 10:06:40 3a) 45-59 Moderately reduced kidney function. 10:06:59 Maximum allowable contrast dose (3.7 X eGFR X 0.75)124.87 ml. 10:13:48 Vital chart was started 10:13:55 Baseline sample Acquired. 10:24:19 Physician arrived 10:24:19 --------ALL STOP TIME OUT------ 10:24:20 Final Timeout: patient, procedure, and site verified with staff and physician. All members of the team are in agreement. 10:24:21 Right groin site verified by team. 10:24:25 Fire Safety Assessment: A--An alcohol-based skin anteseptic being used preoperatively., C--Open oxygen or nitrous oxide is being used. 10:24:29 Sedation plan: IV Moderate Sedation Medication:Versed, Fentanyl 10:25:19 Procedure started. 10:25:22 Local anesthetic to right femoral artery with Lidocaine 1% by Moose Trevizo MD.INITIAL ACCESS ONLY 10:25:31 Micropuncture VSI 4FR kit opened to sterile field. 10:25:32 TUBING Contrast Injection High Pressure (ECP198D) opened to sterile field. 10:25:33 TUBING Contrast Injection High Pressure (NKE387D) opened to sterile field. 10:25:33 SHEATH 5FR Clayton (BQQ160) opened to sterile field. 10:25:34 BENTSON 145cm wire (C93111) opened to sterile field. 10:25:37 A Clarassance Impress Telles 5FR. 100CM catheter ([id number]) was advanced over the wire and used for . 10:25:39 INFLATOR BasixTOUCH (JD4863) opened to sterile field. 10:25:43 A Clarassance ULTRA BOLUS FLUSH 5Fr 90CM catheter ([id number]) was advanced over the wire and used for . 10:27:25 Heparin Flush Bag (1000units/500ml NS) 4 bags added to field was administered by Moose Trevizo MD; used for procedure; Verbal order read back and verified. 10:27:41 Lidocaine 1% 20ml vial added to field was administered by Moose flores MD; for local anesthetic; Verbal order read back and verified. 10:27:54 Versed 0.5 mg I.V. was administered by Lisa Gong RN; for sedation; Verbal order read back and verified. 10:28:06 Fentanyl 25 mcg I.V. was administered by Lisa Gong RN; for sedation; Verbal order read back and verified. 10:32:02 Heparin Bolus 5000 units I.V. was administered by Lisa Gong RN; Per physician; Verbal order read back and verified. 10:36:31 SHEATH 6FR Destination (RSR01) opened to sterile field. 10:42:57 GLIDE WIRE ANGLE 260cm (VD4237) opened to sterile field. 10:43:10 TORQUE DEVICE PLASTIC .038 ( TD01) opened to sterile field. 10:44:59 ROADRUNNER .035 260 glide wire (F67346) opened to sterile field. 10:50:09 A Cook HN5 5F/100CM catheter (O19231) was advanced over the wire and used for SVG Angiography. 10:52:27 CXI SUPPORT .035 135 CM STR catheter (S60307) opened to sterile field. 10:56:48 Cook Misbah 1 90 cm Guide Sheath opened to sterile field. 10:58:31 Heparin Bolus 2500 units I.V. was administered by Lisa Gong RN; Per physician; Verbal order read back and verified. 10:59:25 SPIDER EMBOLIC PROTECTION DEVICE 6MM ([id number]) opened to sterile field. 11:01:44 CHOICE PT Extra Support J 300cm guide wire ([id number]) opened to steril e field. 11:18:22 PROTEGE RX TAPERED 8-6MM X 30MM X 135CM stent ([id number]) was deploye d across Undefined1 . 11:18:23 Inflate balloon Inflation number: 1 A CHOCOLATE 4.0 x 40 x 135 balloon ([id number]) was prepped and advanced across the Undefined1 , then inflated to 0 BUTCH for 0:00 (min:sec) . 11:22:48 Inflate balloon Inflation number: 2 A VIATRAC 6 x 4 x 135 balloon ([id number]) was prepped and advanced across the Undefined1 , then inflated to 0 BUTCH for 0:00 (min:sec) . 11:35:39 PERCLOSE Proglide 6FR ( [id number]) opened to sterile field. 11:40:55 Fluoroscopy time 19.30 minutes. 11:41:01 Fluoroscopy dose: 651 mGy 11:41:01 Flurop Dose total: 651 11:41:19 Procedure ended.(Physican Out) 11:42:45 Insertion/operative site no bleeding no hematoma. 11:42:49 Post-op/insertion site Right Femoral artery dressed using a 4 x 4 and Tegaderm. 11:42:53 Post right femoral artery:stable 11:43:00 Post Procedure Pulses reassessed and unchanged 11:43:06 Post procedure instruction explained to patient.Patient verbalizes understanding. 11:43:08 Procedure and supply charges have been captured, reviewed, submitted an d are correct. 11:44:30 Contrast amount:Isovue 300 70ml. 11:48:54 Report given to CVICU. 11:48:57 Patient transfered to CVICU with Bed. 11:49:20 Vital chart was stopped Intervention Summary Intervention Notes Time ActionType Lesion and Equipment Used Action# Pressure Duration Attributes 11:18:22 Deploy self Undefined1 PROTEGE RX 1 expanding TAPERED 8-6MM X stent 30MM X 135CM stent ([id number]) 11:18:23 Inflate Undefined1 CHOCOLATE 4.0 x 1 0 00:00 balloon 40 x 135 balloon ([id number]) 11:22:48 Inflate Undefined1 VIATRAC 6 x 4 x 2 0 00:00 balloon 135 balloon ([id number]) Device Usage Item Name Manufacture Quantity Catalog Number [facility] nt Minimal Lot# / Charge Number Stock Stock Serial# Code ACIST Syringe Acist 1 14033 418646 096241 51851 8 20 (00612) Medical Systems Inc ACIST Hand Acist 1 21224 126974 537803 10514 9 5 Control (12556) Medical Systems Inc ACIST Manifold Acist 1 21837 973830 858618 61703 4 5 (50213) Medical Systems Inc Bag Decanter Microtek 1 2001S 440474 35885 56098 3 5 (2001S) Medical Inc. Sterile Cardinal 1 [id number] 887483 15872 3 5 Angiographic Pack Health Tegaderm 4 x 4 3M 1 1626W 765220 487429 22274 6 5 (1626W) Micropuncture VSI VSI VASCULAR 1 7266V 911836 71509 3 5 4FR kit SOLUTIONS TUBING Contrast Merit 2 QSR362O 581238 486297 61115 9 5 Injection High Medical Pressure (AKN003P) SHEATH 5FR Terumo 1 UTQ784 372282 655974 86107 2 5 Clayton (JRP120) BENTSON 145cm Cook Medical 1 Q05582 860098 08430 5 5 wire (S74837) Merit Impress Merit 1 707155KTB 798182 88848 3 5 Telles 5FR. Medical 100CM catheter (825119XWZ) INFLATOR Merit 1 VP8247 149280 499392 12561 1 5 Make Meaning Medical (OV3694) Merit ULTRA BOLUS Merit 1 [id number] 474709 83836 5 5 FLUSH 5Fr 90CM Medical catheter ([id number]) SHEATH 6FR Terumo 1 RSR01 612605 28577 45319 4 5 Destination (RSR01) GLIDE WIRE ANGLE Terumo 1 RI6469 447182 641152 04669 6 5 260cm (XS9721) TORQUE DEVICE Talala 1 TD01 973450 592530 71041 0 5 PLASTIC .038 ( Scientific TD01) ROADRUNNER .035 Cook Medical 1 C84318 554004 034707 12517 6 5 [id number] 260 glide wire (A43715) Cook HN5 5F/100CM Cook Medical 1 Z27749 632167 37739 1 2 [id number] catheter (R55937) CXI SUPPORT .035 Cook Cell Guidance Systems 1 B92331 582269 405311 65012 1 5 [id number] 135 CM STR catheter (I51609) Cook Misbah 1 90 Cook Cell Guidance Systems 1 C92017 915721 843805 26557 5 1 [id number] cm Guide Sheath SPIDER EMBOLIC Medtronic 1 DCB1-MB-499-320 490683 23695 6 5 PROTECTION DEVICE 6MM ([id number]) CHOICE PT Extra Talala 1 [id number] 199759 126798 17956 3 5 [id number] Support J 300cm Scientific guide wire (8072466H5) PROTEGE RX Medtronic 1 SPRF-4-0-30-135 680572 087938 23762 5 5 [id number] TAPERED 8-6MM X 30MM X 135CM stent ([id number]) CHOCOLATE 4.0 x Medtronic 1 [id number] 154497 62798 27730 2 5 40 x 135 balloon TW ([id number]) VIATRAC 6 x 4 x Ontiveros 1 8583061-22 173745 433493 37306 9 5 [id number] 135 balloon Vascular ([id number]) PERCLOSE Proglide Ontiveros 1 00353-000 124943 954533 04974 6 5 [id number] 6FR ( [id number]) Vascular Signature Audit [place] Stage Time Signature Unsigned Intra-Procedure 02/07/2021 Loc 11:49:15 AM [place] RT (R) (CV) [facility] [address] [facility] [place] [address]
[2021-02-07] VITALS (18 sets, daily range): BP systolic 97–155; BP diastolic 3–65; Ht 177.8 cm; Wt 83.1 kg
[2021-02-07 06:39] LABS: BASOPHILS 0.3 % (0-2); EOSINOPHILS 4.8 % (0-7); HEMATOCRIT 33.5 % (42.0-54.0); HEMOGLOBIN 10.6 g/dL (13.5-17.5); IMMATURE GRANULOCYTES 0.3 % (0-5); LYMPHOCYTE ABS# 1.73 10x3/uL (1.32-3.57); LYMPHOCYTES 26.7 % (15-50); MCHC 31.6 g/dL (31.0-37.0); MCV 91.8 fL (80.0-100.0); MEAN PLATELET VOLUME 8.4 fL (7.4-10.4); MONOCYTES 11.6 % (2-11); NEUTROPHIL ABS# 3.64 10x3/uL (1.78-5.38); NEUTROPHILS 56.3 % (40-80); PLATELET COUNT 314 10x3/uL (130-400); RBC 3.65 10x6/uL (4.20-6.10); RDW 14.7 % (11.5-14.5); WBC 6.5 10x3/uL (4.8-10.8)
[2021-02-07 07:12] LABS: APTT 29.4 SECONDS (22.8-39.4); INR 1.09 (0.85-1.17); PROTIME 13.1 SECONDS (11.6-15.0)
[2021-02-07 07:16] LABS: ANION GAP 17.1 mmol/L (8-16); CALCIUM 9.3 mg/dL (8.5-10.1); CARBON DIOXIDE 23.5 mmol/L (21.0-32.0); CREATININE - SERUM 1.6 mg/dL (0.6-1.3); POTASSIUM - SERUM 4.6 mmol/L (3.5-5.1)
[2021-02-07] MEDS ORDERED: HYDROXYCHLOROQ200 MG PO (07:38)
[2021-02-07] MEDS ORDERED: EFFIENT10 MG PO (07:38)
[2021-02-07] MEDS ORDERED: XARELTO10 MG PO (07:39)
[2021-02-07] MEDS ORDERED: STIOLTO RESPIMAT4 GM INH (07:40)
[2021-02-08] VITALS (11 sets, daily range): BP systolic 95–129; BP diastolic 31–62
[2021-02-08 04:59] LABS: ANION GAP 9.4 mmol/L (8-16); CALCIUM 8.7 mg/dL (8.5-10.1); CARBON DIOXIDE 27.4 mmol/L (21.0-32.0); CREATININE - SERUM 1.3 mg/dL (0.6-1.3); POTASSIUM - SERUM 4.8 mmol/L (3.5-5.1)
--- NOTE | 2021-02-08 05:48 | NUR ---
Shift summary: No change in patient status during shift. Pain controlled with Tylenol prn. Ambulated with standby assist to bathroom x 2, voided urine. Dressing at R groin CDI. See flowsheets for details.
--- NOTE | 2021-02-08 10:15 | MORECARE ---
CASE MANAGEMENT DISCHARGE SUMMARY PATIENT: ANU RAM UNIT: [id number] ADM DATE: 02/07/21 AGE: 75 : 43 SEX: M ROOM/BED: [facility] AUTHOR: [facility] PHYSICIAN: REFERRING PHYSICIAN: MACO REAVES MD DATE OF SERVICE: 02/08/21 Case Management Discharge Planning Summary DCP REVIEW SUMMARY ANTICIPATED D/C DATE: 02/08/2021 EXPECTED LOS : 1 CASE STATUS: DCP Initiated INITIAL REVIEW: 02/08/2021 INITIAL REVIEWER: Melisa Humphrey FINAL DISCHARGE DISPOSITION: : FINAL REVIEWER: FINAL REVIEW DATE: DCP Focus Questions & Answers DCP REV -DCP Review Added on: 02/08/21 10:15 am QUESTION: ANSWER DCP Screen High Risk Factors: : Hosp related to CHF, COPD, DM, End Stage Ds, CVA, CA DCP Evaluation Patient's ability to cope with chronic illness : d. No chronic illness Mental health screen: : No mental health history Would patient like to participate in any Care Coordination programs (if applicable): : Not applicable DCP Re-evaluation Would patient like to participate in any Care Coordination programs (if applicable): : Not applicable PATIENT: ANU RAM ENCOUNTER: [id number] MEDICAL RECORD#: [id number] ADMISSION DATE: 02/07/2021 DISCHARGE DATE: ATTENDING MD: MACO JEAN : AGE: 75 MARITAL STATUS: M DC PLAN ID: [id number] FACILITY: [facility] PRINTED ON: 02/08/21 10:15 CT All edits/amendments must be made on the electronic document DICTATION DATE: 02/08/21 1015 BLANKET WASHER: DM 02/08/21 1015 RPT#: [id number] DC DATE: STATUS: ADM IN [facility] [address] [place] [address] END OF REPORT
--- NOTE | 2021-02-08 10:27 | MORECARE ---
CASE MANAGEMENT DISCHARGE SUMMARY PATIENT: ANU RAM UNIT: [id number] ADM DATE: 02/07/21 AGE: 75 : 43 SEX: M ROOM/BED: [facility] AUTHOR: OSMANYDOC PHYSICIAN: REFERRING PHYSICIAN: MACO REAVES MD DATE OF SERVICE: 02/08/21 Case Management Discharge Planning Summary DCP REVIEW SUMMARY ANTICIPATED D/C DATE: 02/08/2021 EXPECTED LOS : 1 CASE STATUS: DCP Initiated INITIAL REVIEW: 02/08/2021 INITIAL REVIEWER: Melisa Humphrey FINAL DISCHARGE DISPOSITION: : FINAL REVIEWER: FINAL REVIEW DATE: DCP Focus Questions & Answers DCP REV -DCP Review Added on: 02/08/21 10:15 am QUESTION: ANSWER DCP Screen High Risk Factors: : Hosp related to CHF, COPD, DM, End Stage Ds, CVA, CA DCP Evaluation Patient's ability to cope with chronic illness : a. Adequate (0-3 ED visits in 6 mos., adequate financial resources, attends scheduled appts.) Mental health screen: : No mental health history Would patient like to participate in any Care Coordination programs (if applicable): : Not applicable Patient gives permission to discuss discharge plans with: (name, relationship and number) : Olga Ram, spouse, Physical Status: : Independent with ADL's Baseline cognitive status: : *Oriented to person, place, situation, time and present Family / Caregiver's ability to cope with chronic illness: : a. Adequate (ability to meet patient's medical needs, ensures patient attends medical appts.) Living Arrangements: : Home with Spouse/Significant Other Medication Management: : Patient states can afford medications Pharmacy name(s): : [facility] Does Patient have transportation to get home and to follow-up medical appointments when discharged from the hospital? : Yes Does the patient have electricity at home? : Yes Does the patient have running water in their house? : Yes Equipment in use: : Glucometer Equipment in use: : Home Oxygen with Nasal Cannula Equipment in use: : Shower Chair Equipment agency name and contact information: : [facility], , provides O2 Psychosocial status: : Independent adult (65+) Abuse/Neglect: : None Resources / Services in place: : None Patient's current cognitive status: : *Oriented to person, place, situation, time and present Functional screen assessment: : No issues identified Patient with capacity for self-care or can be cared for in same environment as prior to hospitalization? : Yes Preadmission facility can/cannot provide post hospital level of care needs: : Can - at same level of care as preadmission Family / Caregiver's ability to cope with chronic illness: : a. Adequate (ability to meet patient's medical needs, ensures patient attends medical appts.) Does the patient have the ability to pay for or attain post discharge needs / services? : Yes Is there a likelihood that the patient will require additional services to return to the preadmission environment? : No Results of this evaluation have been discussed with: : Family Patient and/or caregiver agree upon recommended discharge plan? : Yes Equipment needed for post hospitalization: : None Physical environment modification needed / anticipated for discharge: : No Planned post hospital services available for patient? : N/A Planned post hospital services covered by insurance plan? : N/A DCP Re-evaluation Would patient like to participate in any Care Coordination programs (if applicable): : Not applicable PATIENT: ANU RAM ENCOUNTER: [id number] MEDICAL RECORD#: [id number] ADMISSION DATE: 02/07/2021 DISCHARGE DATE: ATTENDING MD: MACO JEAN : AGE: 75 MARITAL STATUS: M DC PLAN ID: [id number] FACILITY: [facility] PRINTED ON: 02/08/21 10:26 CT All edits/amendments must be made on the electronic document DICTATION DATE: 02/08/21 1026 MONOTYPE MECHANIC: TONY 02/08/21 1026 RPT#: [id number] DC DATE: STATUS: ADM IN [facility] [address] [place] [address] END OF REPORT
--- NOTE | 2021-02-08 10:40 | MORECARE ---
CASE MANAGEMENT DISCHARGE SUMMARY PATIENT: ANU RAM UNIT: [id number] ADM DATE: 02/07/21 AGE: 75 : 43 SEX: M ROOM/BED: D.[facility] AUTHOR: OSMANY,DOC PHYSICIAN: REFERRING PHYSICIAN: MACO REAVES MD DATE OF SERVICE: 02/08/21 Case Management Discharge Planning Summary COMMENTS ENTERED DATE: 02/08/21 10:23 CT COMMENT TYPE: Discharge Planning REVIEWER: Melisa Humphrey CM met with patient to discuss discharge planning / needs. CM discussed availability of home health, rehab services, and medical equipment. Patient denies need for home health or other services. States he plans to discharge to home where he lives with his , Olga Ram. States the home environment is safe. States Olga and his daughter will pick him up at discharge. States his stayed at a [place] hotel last night so she could pick him up today. States he has home O2 through [facility]. Denies need for portable O2 for transport home today. States he only uses it at night. CM verified with bedside nurse, Herlinda, that patient would not need portable O2 for transport home today. States he was sat 94% on Room Air earlier. Patient denies any discharge planning needs at this time. CM will continue to follow and assist as needed with discharge planning / needs. DCP REVIEW SUMMARY ANTICIPATED D/C DATE: 02/08/2021 EXPECTED LOS : 1 CASE STATUS: DCP Initiated INITIAL REVIEW: 02/08/2021 INITIAL REVIEWER: Melisa Humphrey FINAL DISCHARGE DISPOSITION: : FINAL REVIEWER: FINAL REVIEW DATE: NHP Focus Questions & Answers DCP REV -DCP Review Added on: 02/08/21 10:15 am QUESTION: ANSWER DCP Screen High Risk Factors: : Hosp related to CHF, COPD, DM, End Stage Ds, CVA, CA DCP Evaluation Patient's ability to cope with chronic illness : a. Adequate (0-3 ED visits in 6 mos., adequate financial resources, attends scheduled appts.) Mental health screen: : No mental health history Would patient like to participate in any Care Coordination programs (if applicable): : Not applicable Patient gives permission to discuss discharge plans with: (name, relationship and number) : Olga Ram, spouse, Physical Status: : Independent with ADL's Baseline cognitive status: : *Oriented to person, place, situation, time and present Family / Caregiver's ability to cope with chronic illness: : a. Adequate (ability to meet patient's medical needs, ensures patient attends medical appts.) Living Arrangements: : Home with Spouse/Significant Other Medication Management: : Patient states can afford medications Pharmacy name(s): : [facility] Does Patient have transportation to get home and to follow-up medical appointments when discharged from the hospital? : Yes Does the patient have electricity at home? : Yes Does the patient have running water in their house? : Yes Equipment in use: : Glucometer Equipment in use: : Home Oxygen with Nasal Cannula Equipment in use: : Shower Chair Equipment agency name and contact information: : [facility], , provides O2 Psychosocial status: : Independent adult (65+) Abuse/Neglect: : None Resources / Services in place: : None Patient's current cognitive status: : *Oriented to person, place, situation, time and present Functional screen assessment: : No issues identified Patient with capacity for self-care or can be cared for in same environment as prior to hospitalization? : Yes Preadmission facility can/cannot provide post hospital level of care needs: : Can - at same level of care as preadmission Family / Caregiver's ability to cope with chronic illness: : a. Adequate (ability to meet patient's medical needs, ensures patient attends medical appts.) Does the patient have the ability to pay for or attain post discharge needs / services? : Yes Is there a likelihood that the patient will require additional services to return to the preadmission environment? : No Results of this evaluation have been discussed with: : Family Patient and/or caregiver agree upon recommended discharge plan? : Yes Equipment needed for post hospitalization: : None Physical environment modification needed / anticipated for discharge: : No Planned post hospital services available for patient? : N/A Planned post hospital services covered by insurance plan? : N/A DCP Re-evaluation Would patient like to participate in any Care Coordination programs (if applicable): : Not applicable PATIENT: ANU RAM ENCOUNTER: [id number] MEDICAL RECORD#: [id number] ADMISSION DATE: 02/07/2021 DISCHARGE DATE: ATTENDING MD: MACO JEAN : AGE: 75 MARITAL STATUS: M DC PLAN ID: [id number] FACILITY: [facility] PRINTED ON: 02/08/21 10:40 CT All edits/amendments must be made on the electronic document DICTATION DATE: 02/08/211039 INDUSTRIAL ORGANIZATION MANAGER: TONY 02/08/211039 RPT#: [id number] DC DATE: STATUS: ADM IN [facility] [address] [place] [address] END OF REPORT
--- NOTE | 2021-02-08 10:42 | NUR ---
DCINTRUCTIONS REVIEWED WITH PT, DENIES ALL QUESTIONS, PIV REMOVED TIP INTACT NO SIGNS OF BLEEDING, PT DCD WITH AND DAUGHTER AT 1035, DC INSTRUCTIONS REVIEWED WITH , DENIES QUESTIONS
--- NOTE | 2021-02-08 10:52 | MORECARE ---
CASE MANAGEMENT DISCHARGE SUMMARY PATIENT: ANU RAM UNIT: [id number] ADM DATE: 02/07/21 AGE: 75 : 43 SEX: M ROOM/BED: D[facility] AUTHOR: OSMANY,DOC PHYSICIAN: REFERRING PHYSICIAN: MACO REAVES MD DATE OF SERVICE: 02/08/21 Case Management Discharge Planning Summary COMMENTS ENTERED DATE: 02/08/21 10:23 CT COMMENT TYPE: Discharge Planning REVIEWER: Melisa Humphrey CM met with patient to discuss discharge planning / needs. CM discussed availability of home health, rehab services, and medical equipment. Patient denies need for home health or other services. States he plans to discharge to home where he lives with his , Olga Ram. States the home environment is safe. States Olga and his daughter will pick him up at discharge. States his stayed at a [place] by hotel last night so she could pick him up today. States he has home O2 through [facility]. Denies need for portable O2 for transport home today. States he only uses it at night. CM verified with bedside nurse, Herlinda, that patient would not need portable O2 for transport home today. States he was sat 94% on Room Air earlier. Patient denies any discharge planning needs at this time. CM will continue to follow and assist as needed with discharge planning / needs. DCP REVIEW SUMMARY ANTICIPATED D/C DATE: 02/08/2021 EXPECTED LOS : 1 CASE STATUS: DCP Initiated INITIAL REVIEW: 02/08/2021 INITIAL REVIEWER: Melisa Humphrey FINAL DISCHARGE DISPOSITION: : FINAL REVIEWER: FINAL REVIEW DATE: DEP Focus Questions & Answers DCP REV -DCP Review Added on: 02/08/21 10:15 am QUESTION: ANSWER DCP Screen High Risk Factors: : Hosp related to CHF, COPD, DM, End Stage Ds, CVA, CA DCP Evaluation Patient's ability to cope with chronic illness : a. Adequate (0-3 ED visits in 6 mos., adequate financial resources, attends scheduled appts.) Mental health screen: : No mental health history Would patient like to participate in any Care Coordination programs (if applicable): : Not applicable Patient gives permission to discuss discharge plans with: (name, relationship and number) : Olga Ram, spouse, Physical Status: : Independent with ADL's Baseline cognitive status: : *Oriented to person, place, situation, time and present Family / Caregiver's ability to cope with chronic illness: : a. Adequate (ability to meet patient's medical needs, ensures patient attends medical appts.) Living Arrangements: : Home with Spouse/Significant Other Medication Management: : Patient states can afford medications Pharmacy name(s): : [facility] Does Patient have transportation to get home and to follow-up medical appointments when discharged from the hospital? : Yes Does the patient have electricity at home? : Yes Does the patient have running water in their house? : Yes Equipment in use: : Glucometer Equipment in use: : Home Oxygen with Nasal Cannula Equipment in use: : Shower Chair Equipment agency name and contact information: : [facility], , provides O2 Psychosocial status: : Independent adult (65+) Abuse/Neglect: : None Resources / Services in place: : None Patient's current cognitive status: : *Oriented to person, place, situation, time and present Functional screen assessment: : No issues identified Patient with capacity for self-care or can be cared for in same environment as prior to hospitalization? : Yes Preadmission facility can/cannot provide post hospital level of care needs: : Can - at same level of care as preadmission Family / Caregiver's ability to cope with chronic illness: : a. Adequate (ability to meet patient's medical needs, ensures patient attends medical appts.) Does the patient have the ability to pay for or attain post discharge needs / services? : Yes Is there a likelihood that the patient will require additional services to return to the preadmission environment? : No Results of this evaluation have been discussed with: : Family Patient and/or caregiver agree upon recommended discharge plan? : Yes Equipment needed for post hospitalization: : None Physical environment modification needed / anticipated for discharge: : No Planned post hospital services available for patient? : N/A Planned post hospital services covered by insurance plan? : N/A DCP Re-evaluation Would patient like to participate in any Care Coordination programs (if applicable): : Not applicable PATIENT: ANU RAM ENCOUNTER: [id number] MEDICAL RECORD#: [id number] ADMISSION DATE: 02/07/2021 DISCHARGE DATE: 02/08/2021 ATTENDING MD: MACO JEAN : AGE: 75 MARITAL STATUS: M DC PLAN ID: [id number] FACILITY: [facility] PRINTED ON: 02/08/21 10:52 CT All edits/amendments must be made on the electronic document DICTATION DATE: 02/08/21 105 SQUARE SHEAR OPERATOR: TONY 02/08/21 105 RPT#: [id number] DC DATE:02/08/21 STATUS: DIS IN [facility] [address] [place] [address] END OF REPORT
--- NOTE | 2021-02-09 07:41 | MORECARE ---
CASE MANAGEMENT DISCHARGE SUMMARY PATIENT: ANU RAM UNIT: [id number] ADM DATE: 02/07/21 AGE: 75 : 43 SEX: M ROOM/BED: D.07 AUTHOR: OSMANY,DOC PHYSICIAN: REFERRING PHYSICIAN: MACO REAVES MD DATE OF SERVICE: 02/09/21 Case Management Discharge Planning Summary COMMENTS ENTERED DATE: 02/08/21 10:23 CT COMMENT TYPE: Discharge Planning REVIEWER: Melisa Humphrey CM met with patient to discuss discharge planning / needs. CM discussed availability of home health, rehab services, and medical equipment. Patient denies need for home health or other services. States he plans to discharge to home where he lives with his , Olga Ram. States the home environment is safe. States Olga and his daughter will pick him up at discharge. States his stayed at a near by hotel last night so she could pick him up today. States he has home O2 through [facility]. Denies need for portable O2 for transport home today. States he only uses it at night. CM verified with bedside nurse, Herlinda, that patient would not need portable O2 for transport home today. States he was sat 94% on Room Air earlier. Patient denies any discharge planning needs at this time. CM will continue to follow and assist as needed with discharge planning / needs. DCP REVIEW SUMMARY ANTICIPATED D/C DATE: 02/08/2021 EXPECTED LOS : 1 CASE STATUS: DCP Initiated INITIAL REVIEW: 02/08/2021 INITIAL REVIEWER: Melisa Humphrey FINAL DISCHARGE DISPOSITION: : FINAL REVIEWER: FINAL REVIEW DATE: SDP Focus Questions & Answers DCP REV -DCP Review Added on: 02/08/21 10:15 am QUESTION: ANSWER DCP Screen High Risk Factors: : Hosp related to CHF, COPD, DM, End Stage Ds, CVA, CA DCP Evaluation Patient's ability to cope with chronic illness : a. Adequate (0-3 ED visits in 6 mos., adequate financial resources, attends scheduled appts.) Mental health screen: : No mental health history Would patient like to participate in any Care Coordination programs (if applicable): : Not applicable Patient gives permission to discuss discharge plans with: (name, relationship and number) : Olga Ram, spouse, Physical Status: : Independent with ADL's Baseline cognitive status: : *Oriented to person, place, situation, time and present Family / Caregiver's ability to cope with chronic illness: : a. Adequate (ability to meet patient's medical needs, ensures patient attends medical appts.) Living Arrangements: : Home with Spouse/Significant Other Medication Management: : Patient states can afford medications Pharmacy name(s): : [facility] Does Patient have transportation to get home and to follow-up medical appointments when discharged from the hospital? : Yes Does the patient have electricity at home? : Yes Does the patient have running water in their house? : Yes Equipment in use: : Glucometer Equipment in use: : Home Oxygen with Nasal Cannula Equipment in use: : Shower Chair Equipment agency name and contact information: : [facility], , provides O2 Psychosocial status: : Independent adult (65+) Abuse/Neglect: : None Resources / Services in place: : None Patient's current cognitive status: : *Oriented to person, place, situation, time and present Functional screen assessment: : No issues identified Patient with capacity for self-care or can be cared for in same environment as prior to hospitalization? : Yes Preadmission facility can/cannot provide post hospital level of care needs: : Can - at same level of care as preadmission Family / Caregiver's ability to cope with chronic illness: : a. Adequate (ability to meet patient's medical needs, ensures patient attends medical appts.) Does the patient have the ability to pay for or attain post discharge needs / services? : Yes Is there a likelihood that the patient will require additional services to return to the preadmission environment? : No Results of this evaluation have been discussed with: : Family Patient and/or caregiver agree upon recommended discharge plan? : Yes Equipment needed for post hospitalization: : None Physical environment modification needed / anticipated for discharge: : No Planned post hospital services available for patient? : N/A Planned post hospital services covered by insurance plan? : N/A DCP Re-evaluation Would patient like to participate in any Care Coordination programs (if applicable): : Not applicable PATIENT: ANU RAM ENCOUNTER: [id number] MEDICAL RECORD#: [id number] ADMISSION DATE: 02/07/2021 DISCHARGE DATE: 02/08/2021 ATTENDING MD: MACO JEAN : AGE: 75 MARITAL STATUS: M DC PLAN ID: [id number] FACILITY: [facility] PRINTED ON: 02/09/21 7:41 CT All edits/amendments must be made on the electronic document DICTATION DATE: 02/09/21740 FREIGHT AIR BRAKE FITTER: TONY 02/09/21740 RPT#: [id number] DC DATE:02/08/21 STATUS: DIS IN [facility] [address] [place] [address] END OF REPORT
== END 2021-02-08 10:35 | disposition home or self-care (01) | DRG 36 ==
LOC: D.SDCHOLD 02-07 06:11 → D.CVICU 02-07 11:46
PROVIDERS: ADMIT Radiology Diagnostic Radiology; ATTEND Radiology Diagnostic Radiology
PROC: 037L3DZ Dilation of Left Internal Carotid Artery with Intraluminal Device, Percutaneous Approach (ICD-10-PCS; principal; 2021-02-07 09:00)
DX: I65.23 Occlusion and stenosis of bilateral carotid arteries (principal); I25.10 Atherosclerotic heart disease of native coronary artery without angina pectoris

== ENCOUNTER → 2021-03-20 12:42 | Outpatient (CLI) | payer MEDICARE, BC ==
[2021-02-07 12:16] VITALS: BMI 26.7
[~2021-03-20 12:42] MED LIST changes: +HYDROXYCHLOROQ200 MG PO; +STIOLTO RESPIMAT4 GM INH; +XARELTO10 MG PO
== END | disposition home or self-care (01) ==
LOC: D.RAD 12:42
PROVIDERS: ATTEND Internal Medicine Pulmonary Disease
DX: R13.10 Dysphagia, unspecified (principal)

== ENCOUNTER → 2021-04-05 10:46 | Outpatient (CLI) | payer MEDICARE, BC ==
[2021-02-07 12:16] VITALS: BMI 26.7
[~2021-04-05 10:46] MED LIST changes: +FERROUS SULFAT325 MG PO
== END | disposition home or self-care (01) ==
LOC: D.US 03-12 13:00
PROVIDERS: ATTEND Radiology Diagnostic Radiology
DX: I65.23 Occlusion and stenosis of bilateral carotid arteries (principal)

== ENCOUNTER 2021-04-06 06:25 | Day surgery (SDC) | payer MEDICARE, BC ==
[2021-04-05 13:16] LABS: BASOPHILS 0.6 % (0-2); EOSINOPHILS 2.4 % (0-7); HEMOGLOBIN 12.8 g/dL (13.5-17.5); LYMPHOCYTES 20.8 % (15-50); MCH 29.7 pg (26.0-34.0); MCHC 32.9 g/dL (31.0-37.0); MCV 90.2 fL (80.0-100.0); MEAN PLATELET VOLUME 6.6 fL (7.4-10.4); MONOCYTES 6.5 % (2-11); NEUTROPHILS 69.7 % (40-80); PLATELET COUNT 341 10x3/uL (130-400); RBC 4.32 10x6/uL (4.20-6.10); RDW 17.1 % (11.5-14.5); WBC 6.7 10x3/uL (4.8-10.8)
[2021-04-05 13:23] LABS: ANION GAP 14.8 mmol/L (8-16); CARBON DIOXIDE 27.5 mmol/L (21.0-32.0); CREATININE - SERUM 1.5 mg/dL (0.6-1.3); POTASSIUM - SERUM 4.3 mmol/L (3.5-5.1)
[2021-04-05 13:35] LABS: APTT 28.1 SECONDS (22.8-39.4); INR 1.14 (0.85-1.17); PROTIME 13.5 SECONDS (11.6-15.0)
[~2021-04-06] VITALS: Ht 180.3 cm; Wt 83.0 kg
[2021-04-06 06:39] VITALS: BP 113/76; Ht 180.3 cm; Wt 83.0 kg
--- NOTE | 2021-04-06 19:22 | OP ---
PATIENT NAME: ANU RAM MEDICAL RECORD: [id number] :41 LOCATION:[facility] ADMISSION DATE: SURGEON: EBONY CARTER DO DATE OF OPERATION: 04/06/2021 PROCEDURE PERFORMED: Left endoscopic carpal tunnel release. PREOPERATIVE DIAGNOSIS: Severe carpal tunnel on the left upper extremity at the wrist. POSTOPERATIVE DIAGNOSIS: Severe carpal tunnel on the left upper extremity at the wrist. INDICATIONS: Mr. Ram is a 75-year-old male who has had problems with his carpal tunnel and has had thenar atrophy for quite some time. He finally got it tested and it was severe carpal tunnel. I informed him of the risks of this including he would not be able to get sensation back, damage to the median nerve and other nerves in the area and vessels. He was aware of all that infection and bleeding. He signed the consent. SURGEON: Ebony Carter DO DESCRIPTION OF PROCEDURE: The patient was taken to the operative suite, after given a block by anesthesia in preoperative area, given light sedation. The left upper extremity was not quite numb yet, so I numbed the operative site with 0.25% Marcaine with epinephrine approximately 10 mL of it and then let that set up. I then came back and he did not have any pain after pinching with a pickup. I then exsanguinated the left upper extremity with an Esmarch, tourniquet was inflated to 250 mmHg after a timeout had been performed and the left upper extremity had been prepped and draped in sterile fashion. I then marked out the incision centered over the palmaris longus tendon, made blunt dissection down to the median nerve. We then released the fascia on the nerve from distal to proximal in the incision site. Then went into the carpal tunnel, and with the dilators and then the sheath, I then brought in the camera and cleaned off the transverse carpal ligament with a probe and a rasp to ensure there were no transligamentous nerve and there was not. I then brought in a blade, raise it up and transected the transverse carpal ligament and then fat herniated down into the carpal tunnel. I then removed the instruments, used long head of the Ragnell and the scissors to make sure there were no remaining fibers of transverse carpal ligament and there were not. We then let the tourniquet down. I then injected again with 10 mL of 0.25% Marcaine with epinephrine and coagulated any bleeding with a pickup and Bovie. I then closed with the 5-0 Monocryl inverted interrupted fashion, placed Steri-Strips, Adaptic, 4 x 4, cast padding and a Coban lightly wrapped around the wrist and hand. He was then awakened and taken to recovery in stable condition. ESTIMATED BLOOD LOSS: Minimal. COMPLICATIONS: None. TOURNIQUET TIME: 6 minutes. TRANSINT:[id number] Voice Confirmation ID: [id number] DOCUMENT ID: [id number] OPERATIVE REPORT [id number] ANU RAM MICHAEL D, DO at 1924 CC: [id number] DICTATION DATE: 04/06/21 1306 PET ADOPTION COUNSELOR: 04/06/21 1618 [facility] 04/06/21 [id number] [place] [address]
== END 2021-04-06 10:50 | disposition home or self-care (01) ==
LOC: D.OPS 06:25
PROVIDERS: Anesthesiology; ATTEND Orthopaedic Surgery
DX: G56.02 Carpal tunnel syndrome, left upper limb (principal); E11.9 Type 2 diabetes mellitus without complications; I10 Essential (primary) hypertension; E78.5 Hyperlipidemia, unspecified; I25.10 Atherosclerotic heart disease of native coronary artery without angina pectoris; J43.9 Emphysema, unspecified; R06.00 Dyspnea, unspecified; J84.9 Interstitial pulmonary disease, unspecified; M06.9 Rheumatoid arthritis, unspecified; R13.19 Other dysphagia; G47.36 Sleep related hypoventilation in conditions classified elsewhere; Z87.891 Personal history of nicotine dependence; Z87.09 Personal history of other diseases of the respiratory system

== ENCOUNTER → 2021-05-08 09:25 | Outpatient (CLI) | payer MEDICARE, BC | END | disposition home or self-care (01) | LOC: D.US 09:25 | PROVIDERS: ATTEND Nurse Practitioner Family | DX: M67.431 Ganglion, right wrist (principal) ==